=== PATIENT | male | born 1980 | race African-American/Black ===

== ENCOUNTER 2016-11-09 11:59 | Emergency (ER) | payer BC ==
[~2016-11-09] VITALS: Ht 182.9 cm; Wt 120.6 kg
[~2016-11-09 11:59] MED LIST: ALBU0.086 NEB; ALBU6.7H INH; MMW SWISH-SWAL; NEBUKIT4; PENVK500 PO; PRED20 PO
[2016-11-09 12:19] VITALS: BP 147/98; PULSE 69; RESP 16; TEMP 98.5; O2SAT 97
[2016-11-09] MEDS ORDERED: SODIUM CHLOR 0.9% 1000 ML INJ 1,000 ML IV ONE (12:45)
--- NOTE | 2016-11-09 13:04 | PD ---
HPI Chief Complaint: GI Complaint Time Seen by Provider: 12:28 Travel History International Travel<30 days: No Contact w/Intl Traveler<30days: No Traveled to known affect area: No History of Present Illness HPI This is a 36-year-old male who presents to the emergency department with diarrhea that's been going on for 1 month, constant, described as 2-6 loose stools per day, watery, nonbloody. He denies any associated nausea or vomiting. He has had intermittent chills. He denies any recent travel or recent antibiotic use. He denies any sick contacts. He denies any abdominal pain. He says he feels generally weak and lethargic. PFSH Past Medical History Cancer: No Cardiovascular Problems: Yes (htn) Diabetes: No Diminished Hearing: No Endocrine: No Gastrointestinal Disorders: No Genitourinary: No Hypertension: Yes Immune Disorder: No Implanted Vascular Access Dvce: No Psychiatric: No Respiratory: Yes (recent pneumonia NovemberDECEMBER 2015) Thyroid Disease: No Social History Alcohol Use: No (LIQUOR 1-2 X WEEK ) Tobacco Use: Yes Substance Use: No Allergies-Medications (Allergen,Severity, Reaction): Coded Allergies: No Known Allergies (Verified , 11/09/16) Reported Meds & Prescriptions Reported Meds & Active Scripts Active No Active Prescriptions or Reported Medications Review of Systems Except as stated in HPI: all other systems reviewed are Neg Physical Exam Narrative GENERAL:Well appearing, no acute distress SKIN: Warm and dry. HEAD: Atraumatic. Normocephalic. EYES: Pupils equal and round. No injection or drainage. ENT: Moist mucous membranes NECK: Trachea midline. CARDIOVASCULAR: Regular rate and rhythm. No murmur appreciated. RESPIRATORY: Clear to auscultation. Breath sounds equal bilaterally. GASTROINTESTINAL: Abdomen soft, non-tender, nondistended. MUSCULOSKELETAL: No obvious deformities. NEUROLOGICAL: Awake and alert. No obvious cranial nerve deficits. Moving all extremities. PSYCHIATRIC: Appropriate mood and affect; insight and judgment normal. Data Data Last Documented VS Vital Signs Date Time Temp Pulse Resp B/P Pulse Ox O2 Delivery O2 Flow Rate FiO2 11/09/16 12:19 98.5 69 16 147/98 97 Orders Complete Blood Count With Diff (11/09/16 12:36) Comprehensive Metabolic Panel (11/09/16 12:36) Magnesium (Mg) (11/09/16 12:36) ^ Insert Iv (11/09/16 12:36) Sodium Chlor 0.9% 1000 Ml Inj (Ns 1000 M (11/09/16 12:45) Labs Laboratory Tests Test 11/09/16 12:55 White Blood Count 5.0 TH/MM3 Red Blood Count 4.32 MIL/MM3 Hemoglobin 13.2 GM/DL Hematocrit 39.1 % Mean Corpuscular Volume 90.6 FL Mean Corpuscular Hemoglobin 30.5 PG Mean Corpuscular Hemoglobin 33.6 % Concent Red Cell Distribution Width 12.6 % Platelet Count 273 TH/MM3 Mean Platelet Volume 7.2 FL Neutrophils (%) (Auto) 55.1 % Lymphocytes (%) (Auto) 30.8 % Monocytes (%) (Auto) 8.8 % Eosinophils (%) (Auto) 2.2 % Basophils (%) (Auto) 3.1 % Neutrophils # (Auto) 2.8 TH/MM3 Lymphocytes # (Auto) 1.5 TH/MM3 Monocytes # (Auto) 0.4 TH/MM3 Eosinophils # (Auto) 0.1 TH/MM3 Basophils # (Auto) 0.2 TH/MM3 CBC Comment DIFF FINAL Differential Comment Sodium Level 141 MEQ/L Potassium Level 4.1 MEQ/L Chloride Level 105 MEQ/L Carbon Dioxide Level 28.2 MEQ/L Anion Gap 8 MEQ/L Blood Urea Nitrogen 11 MG/DL Creatinine 1.10 MG/DL Estimat Glomerular Filtration 92 ML/MIN Rate Random Glucose 117 MG/DL Calcium Level 8.7 MG/DL Magnesium Level 1.8 MG/DL Total Bilirubin 0.5 MG/DL Aspartate Amino Transf 45 U/L (AST/SGOT) Alanine Aminotransferase 58 U/L (ALT/SGPT) Alkaline Phosphatase 46 U/L Total Protein 7.8 GM/DL Albumin 3.7 GM/DL [facility] Medical Decision Making Medical Screen Exam Complete: Yes Emergency Medical Condition: Yes Interpretation(s) Vital signs are reassuring No leukocytosis Electrolytes are reassuring Differential Diagnosis Gastroenteritis, colitis, malabsorption, electrolyte abnormality Narrative Course This is a 36-year-old male who presents to the emergency department with watery diarrhea that's been going on for 1 month. He was placed on a monitor and an IV was established. Labs are obtained which were reassuring. He was given a liter of IV hydration. Patient will be discharged on Lomotil and Cipro given the duration of his symptoms. He will be referred to a packager and strapper for further evaluation. He is nontoxic appearing and well-hydrated and appropriate for further outpatient evaluation. Diagnosis Primary Impression: Diarrhea Qualified Code: R19.7 - Diarrhea, unspecified type Referrals: Sánchez Schmidt MD Patient Instructions: General Instructions Additional Instructions: If you develop severe or worsening abdominal pain, fever>100.4, persistent vomiting or inability to eat or drink return to the emergency department immediately. Follow-up with a packager and strapper if your symptoms don't improve. Med/Other Pt SpecificInfo: Prescription(s) given Scripts Diphenoxylate-Atropine (Lomotil)2.5-0.025 Mg Tab1 Tab PO Q6H PRN (DIARRHEA) #10 TAB Ref 0 Prov:Khalida Teresa MD 11/09/16 Ciprofloxacin 500 Mg Hom474 Mg PO BID 7 Days Prov:Khalida Teresa MD 11/09/16 Disposition: 01 DISCHARGE HOME Condition: Stable Khalida Teresa MD Nov 09, 2016 13:04
[2016-11-09 13:12] LABS: AUTOMATED NEUTROPHIL # 2.8 TH/MM3 (1.8-7.7); BASOPHIL # 0.2 TH/MM3 (0-0.2); BASOPHIL % 3.1 % (0.0-2.0); EOSINOPHIL # 0.1 TH/MM3 (0-0.4); EOSINOPHIL % 2.2 % (0.0-4.0); HEMATOCRIT 39.1 % (39.0-51.0); HEMO FLAGS DIFF FINAL; LYMPH % 30.8 % (9.0-44.0); LYMPHOCYTE # 1.5 TH/MM3 (1.0-4.8); MEAN CELL VOLUME 90.6 FL (80.0-100.0); MEAN CORPUSCULAR HEMOGLOBIN 30.5 PG (27.0-34.0); MEAN CORPUSCULAR HGB CONC 33.6 % (32.0-36.0); MONO % 8.8 % (0.0-8.0); NEUT % 55.1 % (16.0-70.0); PLATELET COUNT 273 TH/MM3 (150-450); RED BLOOD COUNT 4.32 MIL/MM3 (4.50-5.90); RED CELL DISTRIBUTION WIDTH 12.6 % (11.6-17.2)
[2016-11-09 13:15] LABS: CHLORIDE 105 MEQ/L (98-107); POTASSIUM 4.1 MEQ/L (3.5-5.1); SODIUM (NA) 141 MEQ/L (136-145)
[2016-11-09 13:19] LABS: ANION GAP 8 MEQ/L (5-15); BICARBONATE 28.2 MEQ/L (21.0-32.0); BLOOD UREA NITROGEN 11 MG/DL (7-18); MAGNESIUM 1.8 MG/DL (1.5-2.5)
[2016-11-09 13:22] LABS: ALT (GPT) 58 U/L (12-78); AST (GOT) 45 U/L (15-37); GLOMERULAR FILTRATION RATE 92 ML/MIN (>89)
[2016-11-09 13:23] LABS: TOTAL BILIRUBIN ADULT 0.5 MG/DL (0.2-1.0)
[2016-11-09 13:25] LABS: ALKALINE PHOSPHATASE 46 U/L (45-117)
[2016-11-09] MEDS ORDERED: LOMO2.5T PO (13:29)
[2016-11-09] MEDS ORDERED: CIPR500T2 PO (13:29)
== END 2016-11-09 14:38 | disposition home or self-care (01) ==
LOC: PHED 11:59
DX: R19.7 Diarrhea, unspecified (principal); I10 Essential (primary) hypertension; Z72.0 Tobacco use
CPT/HCPCS: 80053; 83735; 85025; 96360; 99284; J7030

== ENCOUNTER 2017-03-22 10:21 | Emergency (ER) | payer SELFPAY ==
[~2017-03-22] VITALS: Ht 182.9 cm; Wt 123.0 kg
[~2017-03-22 10:21] MED LIST changes: -ALBU0.086 NEB; -ALBU6.7H INH; +CIPR500T2 PO; +LOMO2.5T PO; -MMW SWISH-SWAL; -NEBUKIT4; -PENVK500 PO; -PRED20 PO
[2017-03-22 10:23] VITALS: BP 186/112; PULSE 75; RESP 15; TEMP 98.9; O2SAT 98
[2017-03-22] MEDS ORDERED: SODIUM CHLOR 0.9% 1000 ML INJ 1,000 ML IV SCH (10:55)
[2017-03-22] MEDS ORDERED: MORPHINE SULFATE 4 MG/ML INJ IV PUSH ONE (11:00)
[2017-03-22] MEDS ORDERED: ONDANSETRON HCL 4 MG/2 ML VIAL IVP ONE (11:00)
[2017-03-22] MEDS ORDERED: SODIUM CHLORIDE 0.9% FLUSH 10 ML FLUSH IV FLUSH PRN (11:00)
--- NOTE | 2017-03-22 11:03 | PD ---
HPI Chief Complaint: Abdominal Pain Time Seen by Provider: 10:42 Travel History International Travel<30 days: No Contact w/Intl Traveler<30days: No Traveled to known affect area: No History of Present Illness HPI 36-year-old male came to the emergency room complaining of abdominal pain. He says it's mostly generalized but gravitates more towards the left lower quadrant. He says he has had pain like this 2 years ago when he had come to the emergency room and at that time he was diagnosed with GERD. His vital signs are stable. He does not appear to be in significant distress. He says the pain started this morning. He has been little bit nauseous but did not vomit. No history of bowel movement issues either. REPLACED BY [facility] Past Medical History Narrative Medical List of his past medical, surgical, social and family history is reviewed from the nursing note. Medical History: Denies Significant Hx Cancer: No Cardiovascular Problems: Yes (htn) Diabetes: No Diminished Hearing: No Endocrine: No Gastrointestinal Disorders: No Genitourinary: No Hypertension: Yes Immune Disorder: No Implanted Vascular Access Dvce: No Psychiatric: No Respiratory: Yes (pneumonia NovemberDECEMBER 2015) Immunizations Current: No Thyroid Disease: No Tetanus Vaccination: Unknown Influenza Vaccination: No Past Surgical History Surgical History: No Previous Surgery Social History Alcohol Use: Yes (occ) Tobacco Use: No Substance Use: Yes (pot) Allergies-Medications (Allergen,Severity, Reaction): Coded Allergies: No Known Allergies (Verified , 03/22/17) Comments No known allergies. Reported Meds & Prescriptions Reported Meds & Active Scripts Active Protonix (Pantoprazole Sodium) 20 Mg Tab 20 Mg PO DAILY Narrative Medication List of his home medications reviewed from the nursing note. Review of Systems Except as stated in HPI: all other systems reviewed are Neg Physical Exam Narrative GENERAL: Awake, alert, obese, no obvious distress SKIN: Focused skin assessment warm/dry. HEAD: Atraumatic. Normocephalic. EYES: Pupils equal and round. No scleral icterus. No injection or drainage. ENT: No nasal bleeding or discharge. Mucous membranes pink and moist. NECK: Trachea midline. No JVD. CARDIOVASCULAR: Regular rate and rhythm. No murmur appreciated. RESPIRATORY: No accessory muscle use. Clear to auscultation. Breath sounds equal bilaterally. GASTROINTESTINAL: Abdomen soft, non-tender, nondistended. Hepatic and splenic margins not palpable. MUSCULOSKELETAL: No obvious deformities. No clubbing. No cyanosis. No edema. NEUROLOGICAL: Awake and alert. No obvious cranial nerve deficits. Motor grossly within normal limits. Normal speech. PSYCHIATRIC: Appropriate mood and affect; insight and judgment normal. Data Data Last Documented VS Vital Signs Date Time Temp Pulse Resp B/P Pulse Ox O2 Delivery O2 Flow Rate FiO2 03/22/17 12:30 65 18 158/110 97 Room Air 03/22/17 10:23 98.9 Orders Complete Blood Count With Diff (03/22/17 10:55) Comprehensive Metabolic Panel (03/22/17 10:55) Lipase (03/22/17 10:55) Urinalysis - C+S If Indicated (03/22/17 10:55) Ct Abd/Pel W/O Iv Contrast (03/22/17 10:55) Iv Access Insert/Monitor (03/22/17 10:55) Ecg Monitoring (03/22/17 10:55) Oximetry (03/22/17 10:55) Morphine Inj (Morphine Inj) (03/22/17 11:00) Ondansetron Inj (Zofran Inj) (03/22/17 11:00) Sodium Chlor 0.9% 1000 Ml Inj (Ns 1000 M (03/22/17 10:55) Sodium Chloride 0.9% Flush (Ns Flush) (03/22/17 11:00) Labs Laboratory Tests Test 03/22/17 03/22/17 11:20 11:25 White Blood Count 5.8 TH/MM3 Red Blood Count 4.86 MIL/MM3 Hemoglobin 14.2 GM/DL Hematocrit 43.3 % Mean Corpuscular Volume 89.1 FL Mean Corpuscular Hemoglobin 29.1 PG Mean Corpuscular Hemoglobin 32.7 % Concent Red Cell Distribution Width 12.4 % Platelet Count 236 TH/MM3 Mean Platelet Volume 8.0 FL Neutrophils (%) (Auto) 53.9 % Lymphocytes (%) (Auto) 34.4 % Monocytes (%) (Auto) 8.0 % Eosinophils (%) (Auto) 2.9 % Basophils (%) (Auto) 0.8 % Neutrophils # (Auto) 3.1 TH/MM3 Lymphocytes # (Auto) 2.0 TH/MM3 Monocytes # (Auto) 0.5 TH/MM3 Eosinophils # (Auto) 0.2 TH/MM3 Basophils # (Auto) 0.0 TH/MM3 CBC Comment DIFF FINAL Differential Comment Sodium Level 139 MEQ/L Potassium Level 4.3 MEQ/L Chloride Level 106 MEQ/L Carbon Dioxide Level 24.7 MEQ/L Anion Gap 8 MEQ/L Blood Urea Nitrogen 9 MG/DL Creatinine 0.84 MG/DL Estimat Glomerular Filtration 126 ML/MIN Rate Random Glucose 115 MG/DL Calcium Level 9.1 MG/DL Total Bilirubin 0.5 MG/DL Aspartate Amino Transf 42 U/L (AST/SGOT) Alanine Aminotransferase 62 U/L (ALT/SGPT) Alkaline Phosphatase 54 U/L Total Protein 8.4 GM/DL Albumin 3.9 GM/DL Lipase 103 U/L Urine Color STRAW Urine Turbidity CLEAR Urine pH 5.5 Urine Specific [place] 1.015 Urine Protein NEG mg/dL Urine Glucose (UA) NEG mg/dL Urine Ketones NEG mg/dL Urine Occult Blood TRACE Urine Nitrite NEG Urine Bilirubin NEG Urine Leukocyte Esterase NEG Urine RBC 0-3 /hpf Urine WBC 0-2 /hpf Urine Squamous Epithelial 0-5 /hpf Cells Microscopic Urinalysis Comment CULT NOT INDICATED MDM Medical Decision Making Medical Screen Exam Complete: Yes Emergency Medical Condition: Yes Medical Record Reviewed: Yes Differential Diagnosis Acute pancreatitis, acute gastritis, acute diverticulitis, abdominal pain NOS Narrative Course 11:58 AM the scan is back and shows an enlarged fatty liver but otherwise negative. Awaiting for the blood test result. Patient was given pain medication. Procedures EKG Prior to Arrival: No Diagnosis Primary Impression: Abdominal pain Qualified Code: R10.9 - Abdominal pain, unspecified location Additional Impression: Fatty liver Referrals: Primary Care Physician Additional Instructions: Do not drink alcohol. Eat mostly clear liquid diet for next 48 hours like apple juice, Jell-O, clear broth, rosa isela carol etc. Return to the ER if the condition worsens or any other new concerns. Follow-up with your primary care in couple days. Med/Other Pt SpecificInfo: Prescription(s) given, No Change to Meds Scripts Pantoprazole (Protonix)20 Mg Tab20 Mg PO DAILY #30 TAB Ref 0 Prov:Steffanie Chaidez MD 03/22/17 Disposition: 01 DISCHARGE HOME Condition: Stable Steffanie Chaidez MD Mar 22, 2017 11:02
--- NOTE | 2017-03-22 11:31 | RADRPT ---
EXAM DATE/TIME: 03/22/2017 11:04 [facility] COMPARISON: CT THORAX W CONTRAST, December 10, 2015, 0:34. CT PULMONARY ANGIOGRAM, December 15, 2015, 1:11. INDICATIONS : Diffuse abdominal pain x 3 hours. Nausea. ORAL CONTRAST: No oral contrast ingested. RADIATION DOSE: 21.90 CTDIvol (mGy) MEDICAL HISTORY : Hypertension. SURGICAL HISTORY : None. ENCOUNTER: Initial ACUITY: 1 day PAIN SCALE: 9/10 LOCATION: Diffuse abdomen. TECHNIQUE: Volumetric scanning of the abdomen and pelvis was performed. Using automated exposure control and ad justment of the mA and/or kV according to patient size, radiation dose was kept as low as reasonably achievable to obtain optimal diagnostic quality images. DICOM format image data is available electro nically for review and comparison. FINDINGS: LOWER LUNGS: The visualized lower lungs are clear. LIVER: The liver is enlarged and demonstrates fatty infiltration. No focal hepatic mass is identified on thi s unenhanced exam. There is no dilation of the biliary tree. No calcified gallstones. SPLEEN: Normal size without lesion. PANCREAS: Within normal limits. KIDNEYS: Normal in size and shape. There is no stone or hydronephrosis. There is an 18 mm low density lesion within the left kidney which likely represents a cyst. ADRENAL GLANDS: Within normal limits. VASCULAR: There is no aortic aneurysm. BOWEL/MESENTERY: Uncomplicated colonic diverticulosis is noted. No acute diverticulitis is noted the appendix is blayne l. ABDOMINAL WALL: Within normal limits. RETROPERITONEUM: There is no lymphadenopathy. BLADDER: No wall thickening or mass. REPRODUCTIVE: Within normal limits. INGUINAL: There is no lymphadenopathy or hernia. MUSCULOSKELETAL: Within normal limits for patient age. CONCLUSION: 1. Enlarged fatty liver. 2. Uncomplicated colonic diverticulosis. 3. 18 mm left renal cyst. Earl Condon MD on March 22, 2017 at 11:23 Board Certified Radiologist. This report was verified electronically.
[2017-03-22 11:37] LABS: BLOOD, URINE TRACE (NEG); GLUCOSE,URINE NEG (NEG); KETONE, URINE NEG (NEG); NITRITE,URINE NEG (NEG); PH, URINE 5.5 (5.0-8.5)
[2017-03-22 11:39] LABS: CHLORIDE 106 MEQ/L (98-107); POTASSIUM 4.3 MEQ/L (3.5-5.1); SODIUM (NA) 139 MEQ/L (136-145)
[2017-03-22 11:40] VITALS: BP 173/114; PULSE 77; RESP 18; O2SAT 100
[2017-03-22 11:45] LABS: ANION GAP 8 MEQ/L (5-15); BICARBONATE 24.7 MEQ/L (21.0-32.0); BLOOD UREA NITROGEN 9 MG/DL (7-18)
[2017-03-22 11:47] LABS: ALT (GPT) 62 U/L (12-78); AST (GOT) 42 U/L (15-37); GLOMERULAR FILTRATION RATE 126 ML/MIN (>89)
[2017-03-22 11:48] LABS: TOTAL BILIRUBIN ADULT 0.5 MG/DL (0.2-1.0)
[2017-03-22 11:49] LABS: ALKALINE PHOSPHATASE 54 U/L (45-117)
[2017-03-22 11:53] LABS: AUTOMATED NEUTROPHIL # 3.1 TH/MM3 (1.8-7.7); BASOPHIL % 0.8 % (0.0-2.0); EOSINOPHIL # 0.2 TH/MM3 (0-0.4); EOSINOPHIL % 2.9 % (0.0-4.0); HEMATOCRIT 43.3 % (39.0-51.0); HEMO FLAGS DIFF FINAL; LYMPH % 34.4 % (9.0-44.0); MEAN CELL VOLUME 89.1 FL (80.0-100.0); MEAN CORPUSCULAR HEMOGLOBIN 29.1 PG (27.0-34.0); MEAN CORPUSCULAR HGB CONC 32.7 % (32.0-36.0); NEUT % 53.9 % (16.0-70.0); PLATELET COUNT 236 TH/MM3 (150-450); RED BLOOD COUNT 4.86 MIL/MM3 (4.50-5.90); RED CELL DISTRIBUTION WIDTH 12.4 % (11.6-17.2); WHITE BLOOD COUNT 5.8 TH/MM3 (4.0-11.0)
[2017-03-22 11:56] LABS: URINE COLOR STRAW (YELLW/STRAW)
[2017-03-22 11:57] LABS: COMMENT (UR) CULT NOT INDICATED; CULTURE IF INDICATED CULT NOT INDICATED; RBC, URINE 0-3 /hpf (0-3); SQUAMOUS EPITHELIAL CELL URINE 0-5 /hpf (0-5); WBC, URINE 0-2 /hpf (0-5)
[2017-03-22] MEDS ORDERED: PANT20 PO (12:01)
[2017-03-22 12:05] VITALS: BP 174/110; PULSE 67; RESP 18; O2SAT 99
[2017-03-22 12:30] VITALS: BP 158/110; PULSE 65; RESP 18; O2SAT 97
== END 2017-03-22 13:20 | disposition home or self-care (01) ==
LOC: PHED 10:21
DX: R10.84 Generalized abdominal pain (principal); K76.0 Fatty (change of) liver, not elsewhere classified; K21.9 Gastro-esophageal reflux disease without esophagitis; I10 Essential (primary) hypertension
CPT/HCPCS: 74176; 80053; 81001; 83690; 85025; 96361; 96374; 96375; 99285; J2270; J2405; J7030

== ENCOUNTER 2017-04-18 09:13 | Observation (INO) | payer SELFPAY ==
[2017-04-18] VITALS (11 sets, daily range): BP systolic 131–200; BP diastolic 74–114; PULSE 59–74; RESP 16–22; TEMP 98.1–98.6; O2SAT 94–100
[~2017-04-18] VITALS: Ht 182.9 cm; Wt 125.0 kg
[~2017-04-18 09:13] MED LIST changes: -CIPR500T2 PO; -LOMO2.5T PO; +PANT20 PO
[2017-04-18] MEDS ORDERED: SODIUM CHLORIDE 0.9% FLUSH 10 ML FLUSH IVF PRN (09:45)
[2017-04-18] MEDS ORDERED: hydrALAZINE HCL 20 MG/ML VIAL IV PUSH ONE (09:45)
--- NOTE | 2017-04-18 09:57 | PD ---
HPI Chief Complaint: Abdominal Pain Time Seen by Provider: 09:31 Travel History International Travel<30 days: No Contact w/Intl Traveler<30days: No Traveled to known affect area: No History of Present Illness HPI 36yo M with PMH of HTN presents to the ED with multiple complaints. Pt is c/o periumbilical abdominal pain that radiates to chest today. States it feels like heart burn. Chest pain is midsternal, intermittent and started this morning. States the chest pain is associated with sob. +Nausea and vomiting. Feels chills. Denies any fever, diarrhea, dysuria, testicular pain, penile discharge. PFSH Past Medical History Medical History: Denies Significant Hx Cancer: No Cardiovascular Problems: Yes (htn) Diabetes: No Diminished Hearing: No Endocrine: No Gastrointestinal Disorders: No Genitourinary: No Hypertension: Yes Immune Disorder: No Implanted Vascular Access Dvce: No Psychiatric: No Respiratory: Yes (pneumonia NovemberDECEMBER 2015) Immunizations Current: No Thyroid Disease: No Tetanus Vaccination: Unknown Influenza Vaccination: No ?: Not Past Surgical History Surgical History: No Previous Surgery Social History Alcohol Use: Yes (occ) Tobacco Use: No Substance Use: Yes (marijuana) Allergies-Medications (Allergen,Severity, Reaction): Coded Allergies: No Known Allergies (Verified , 03/22/17) Reported Meds & Prescriptions Reported Meds & Active Scripts Active Review of Systems Except as stated in HPI: all other systems reviewed are Neg Physical Exam Narrative GENERAL: 36yo M in mild distress. SKIN: Focused skin assessment warm/dry. HEAD: Atraumatic. Normocephalic. EYES: Pupils equal and round. No scleral icterus. No injection or drainage. ENT: Throat: Clear. Uvula midline. NECK: Trachea midline. No JVD. No cervical lymphadenopathy that is ttp. CARDIOVASCULAR: Regular rate and rhythm. No murmur appreciated. RESPIRATORY: No accessory muscle use. Clear to auscultation. Breath sounds equal bilaterally. GASTROINTESTINAL: Abdomen soft, Mild periumbilical ttp. No rebound tenderness or guarding. MUSCULOSKELETAL: No obvious deformities. No clubbing. No cyanosis. No edema. NEUROLOGICAL: Awake and alert. No obvious cranial nerve deficits. Motor grossly within normal limits. Normal speech. PSYCHIATRIC: Appropriate mood and affect; insight and judgment normal. Data Data Last Documented VS Vital Signs Date Time Temp Pulse Resp B/P (MAP) Pulse Ox O2 Delivery O2 Flow Rate FiO2 04/18/17 14:20 17 04/18/17 12:02 100 Room Air 04/18/17 09:31 63 165/100 (121) 04/18/17 09:14 98.6 Orders Orders Electrocardiogram (04/18/17 09:40) Basic Metabolic Panel (Bmp) (04/18/17 09:40) Complete Blood Count With Diff (04/18/17 09:40) Magnesium (Mg) (04/18/17 09:40) Prothrombin Time / Inr (Pt) (04/18/17 09:40) Act Partial Throm Time (Ptt) (04/18/17 09:40) Troponin I (04/18/17 09:40) Chest, Single Ap (04/18/17 09:40) Ecg Monitoring (04/18/17 09:40) Bilateral Bp Monitoring (04/18/17 09:40) Iv Access Insert/Monitor (04/18/17 09:40) Oximetry (04/18/17 09:40) Oxygen Administration (04/18/17 09:40) Sodium Chloride 0.9% Flush (Ns Flush) (04/18/17 09:45) Lipase (04/18/17 09:40) Urinalysis - C+S If Indicated (04/18/17 09:40) Hydralazine Inj (Apresoline Inj) (04/18/17 09:45) Morphine Inj (Morphine Inj) (04/18/17 10:00) Aspirin (Aspirin) (04/18/17 10:00) Ondansetron Inj (Zofran Inj) (04/18/17 10:00) Ct Abd/Pel W Iv Contrast(Rout) (04/18/17 ) Morphine Inj (Morphine Inj) (04/18/17 12:15) Iohexol 350 Inj (Omnipaque 350 Inj) (04/18/17 13:39) Admit Order (Ed Use Only) (04/18/17 14:34) Labs Laboratory Tests Test 04/18/17 10:00 04/18/17 10:10 White Blood Count 5.7 TH/MM3 Red Blood Count 4.82 MIL/MM3 Hemoglobin 14.2 GM/DL Hematocrit 43.5 % Mean Corpuscular Volume 90.3 FL Mean Corpuscular Hemoglobin 29.4 PG Mean Corpuscular Hemoglobin Concent 32.6 % Red Cell Distribution Width 13.3 % Platelet Count 231 TH/MM3 Mean Platelet Volume 8.4 FL Neutrophils (%) (Auto) 46.8 % Lymphocytes (%) (Auto) 41.3 % Monocytes (%) (Auto) 8.8 % Eosinophils (%) (Auto) 2.2 % Basophils (%) (Auto) 0.9 % Neutrophils # (Auto) 2.7 TH/MM3 Lymphocytes # (Auto) 2.3 TH/MM3 Monocytes # (Auto) 0.5 TH/MM3 Eosinophils # (Auto) 0.1 TH/MM3 Basophils # (Auto) 0.1 TH/MM3 CBC Comment DIFF FINAL Differential Comment Prothrombin Time 10.5 SEC Prothromb Time International Ratio 1.0 RATIO Activated Partial Thromboplast Time 29.9 SEC Blood Urea Nitrogen 14 MG/DL Creatinine 0.97 MG/DL Random Glucose 106 MG/DL Calcium Level 9.7 MG/DL Magnesium Level 2.0 MG/DL Sodium Level 137 MEQ/L Potassium Level 3.6 MEQ/L Chloride Level 106 MEQ/L Carbon Dioxide Level 22.5 MEQ/L Anion Gap 9 MEQ/L Estimat Glomerular Filtration Rate 107 ML/MIN Troponin I 0.02 NG/ML Lipase 122 U/L Urine Color YELLOW Urine Turbidity CLEAR Urine pH 7.0 Urine Specific [place] 1.019 Urine Protein NEG mg/dL Urine Glucose (UA) NEG mg/dL Urine Ketones TRACE mg/dL Urine Occult Blood NEG Urine Nitrite NEG Urine Bilirubin NEG Urine Urobilinogen LESS THAN 2.0 MG/DL Urine Leukocyte Esterase NEG Urine RBC LESS THAN 1 /hpf Urine WBC LESS THAN 1 /hpf Urine Mucus FEW /lpf Urine Sperm RARE Microscopic Urinalysis Comment CULT NOT INDICATED MDM Medical Decision Making Medical Screen Exam Complete: Yes Emergency Medical Condition: Yes Interpretation(s) EKG: NSR 68bpm. LVH. TWI I, aVL, II, V4-V6. Differential Diagnosis Viral syndrome vs. gastritis vs. pneumonia vs. hypertensive urgency vs. ACS Narrative Course 36yo M with multiple complaints. Labs reviewed, no leukocytosis. Troponin negative at 0.02. Lipase normal. UA showed no leukocyte or nitrite. CXR negative. CTa/p showed 4cm liver mass left hepatic lobe. MRI of the abdomen with and without contrast may be helpful for further characterization on a nonemergent outpatient basis. Pt is only 36yo but is obese, has hypertension and not on any medication, has cousin who in his 30s, and former cig smoker. Pt does have some TWI inversions on EKG but also has LVH. Pt given aspirin, morphine and zofran. Reevaluated at bedside and abdominal pain, chest pain and sob has resolved. However, states the chest pain is intermittent. Low risk chest pain so will admit to chest pain center for serial EKG and cardiac enzyme Scripts Omeprazole (Omeprazole) 20 Mg Tab 20 MG PO DAILY for Reflux, #30 TAB 1 Refill Prov: Юлия Chaves 04/19/17 Amlodipine (Amlodipine) 10 Mg Tab 10 MG PO DAILY for Blood Pressure Management, #30 TAB 1 Refill Prov: Юлия Chaves 04/19/17 Cely Donnelly DO Apr 18, 2017 09:57
[2017-04-18] MEDS ORDERED: MORPHINE SULFATE 4 MG/ML INJ IV PUSH ONE ×2 (10:00→12:15)
[2017-04-18] MEDS ORDERED: ASPIRIN 325 MG TAB PO ONE (10:00)
[2017-04-18] MEDS ORDERED: ONDANSETRON HCL 4 MG/2 ML VIAL IV PUSH ONE (10:00)
--- NOTE | 2017-04-18 10:09 | RADRPT ---
EXAM DATE/TIME: 04/18/2017 09:44 [facility] COMPARISON: CHEST SINGLE AP, December 14, 2015, 21:58. INDICATIONS : Chest pain. Patient c/o abdomen pain, nausea and vomiting. MEDICAL HISTORY : None. SURGICAL HISTORY : None. ENCOUNTER: Initial ACUITY: 1 day PAIN SCORE: 10/10 LOCATION: Bilateral chest Abdomen. FINDINGS: A single view of the chest demonstrates the lungs to be symmetrically aerated without evidence of mas s, infiltrate or effusion. The cardiomediastinal contours are unremarkable. Osseous structures are intact. CONCLUSION: Normal examination. Dell Rogers Jr., MD on April 18, 2017 at 10:02 Board Certified Radiologist. This report was verified electronically.
[2017-04-18 10:21] LABS: AUTOMATED NEUTROPHIL # 2.7 TH/MM3 (1.8-7.7); BASOPHIL # 0.1 TH/MM3 (0-0.2); BASOPHIL % 0.9 % (0.0-2.0); EOSINOPHIL # 0.1 TH/MM3 (0-0.4); EOSINOPHIL % 2.2 % (0.0-4.0); HEMATOCRIT 43.5 % (39.0-51.0); HEMO FLAGS DIFF FINAL; LYMPH % 41.3 % (9.0-44.0); LYMPHOCYTE # 2.3 TH/MM3 (1.0-4.8); MEAN CELL VOLUME 90.3 FL (80.0-100.0); MEAN CORPUSCULAR HEMOGLOBIN 29.4 PG (27.0-34.0); MEAN CORPUSCULAR HGB CONC 32.6 % (32.0-36.0); MONO % 8.8 % (0.0-8.0); NEUT % 46.8 % (16.0-70.0); PLATELET COUNT 231 TH/MM3 (150-450); RED BLOOD COUNT 4.82 MIL/MM3 (4.50-5.90); RED CELL DISTRIBUTION WIDTH 13.3 % (11.6-17.2); WHITE BLOOD COUNT 5.7 TH/MM3 (4.0-11.0)
[2017-04-18 10:25] LABS: BLOOD, URINE NEG (NEG); COMMENT (UR) CULT NOT INDICATED; CULTURE IF INDICATED CULT NOT INDICATED; GLUCOSE,URINE NEG (NEG); KETONE, URINE TRACE mg/dL (NEG); MUCUS URINE FEW /lpf (OCC); NITRITE,URINE NEG (NEG); URINE COLOR YELLOW (YELLW/STRAW)
[2017-04-18 10:32] LABS: APTT (PATIENT) 29.9 SEC (24.3-30.1); PROTHROMBIN TIME - PATIENT 10.5 SEC (9.8-11.6)
[2017-04-18 10:33] LABS: BICARBONATE 22.5 MEQ/L (21.0-32.0); POTASSIUM 3.6 MEQ/L (3.5-5.1)
[2017-04-18] MEDS ORDERED: IOHEXOL 350 MG/ML 10 ML VIAL (for RAD DIAG) IVCONTRAST ONE (13:39)
--- NOTE | 2017-04-18 13:59 | RADRPT ---
EXAM DATE/TIME: 04/18/2017 13:18 [facility] COMPARISON: CT ABDOMEN & PELVIS W/O CONTRAST, March 22, 2017, 11:04. INDICATIONS : Diffuse abdominal pain. IV CONTRAST: 94 cc Omnipaque 350 (iohexol) IV ORAL CONTRAST: No oral contrast ingested. RADIATION DOSE: 9.69 CTDIvol (mGy) MEDICAL HISTORY : Hypertension. SURGICAL HISTORY : None. ENCOUNTER: Initial ACUITY: 1 day PAIN SCALE: 5/10 LOCATION: Bilateral abdomen TECHNIQUE: Volumetric scanning of the abdomen and pelvis was performed. Using automated exposure control and ad justment of the mA and/or kV according to patient size, radiation dose was kept as low as reasonably achievable to obtain optimal diagnostic quality images. DICOM format image data is available electro nically for review and comparison. FINDINGS: No pleural or pericardial effusions. Spleen, pancreas, adrenal glands, kidneys, gallbladder, stomach, urinary bladder unremarkable. A few scattered colonic diverticuli are noted. The appendix is normal. There is no evidence of bowel obstruction. In the left hepatic lobe lateral segment an enhancing mas s is present with central area of low density, somewhat stellate in appearance. This measures 4 x 3.4 cm in transverse and AP dimension.. The lung bases are clear. The bones are unremarkable. CONCLUSION: 4 cm liver mass left hepatic lobe. MRI of the abdomen with and without contrast may be helpful for fu rther characterization on a nonemergent outpatient basis. There no findings to explain the patient's diffuse abdominal pain. Esvin Butler MD on April 18, 2017 at 13:49 Board Certified Radiologist. This report was verified electronically.
[2017-04-18] MEDS ORDERED: ACETAMINOPHEN 500 MG CPLT PO PRN (15:30)
[2017-04-18] MEDS ORDERED: NITROGLYCERIN 0.4 MG SL 25 TABS/BTL SL PRN (15:30)
[2017-04-18] MEDS ORDERED: ONDANSETRON HCL 4 MG/2 ML VIAL IV PRN (15:30)
--- NOTE | 2017-04-18 16:13 | HHI.HP ---
HPI Primary Care Physician in [place], [place] Chief Complaint Abdomen pain History of Present Illness 36-year-old male with history of hypertension and GERD presents for emergency room for further evaluation of abdominal pain. Onset 8 AM. Location left upper quad. Described as sharp stabbing pain. Duration 5 seconds. Pain quickly side. After pain in the left upper quadrant dissipates then experiences epigastric burning, stating "feels like heartburn." Associated symptoms include cold sweats, chills, nausea, 1 clear emesis, and short of breath. Did not hurt to take a deep breath. No particular movement or position make pain better or worse. Endorses similar pain in the past 3 years ago. During that time states pain was more severe and was diagnosed with acid reflux. Review of Systems General: No fatigue,weakness, fever, chills, recent illness, or change in appetite. Has been in his general state of health. 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 HEENT: Endorses certain known acid reflux food triggers. No longer takes daily antacids. No TRAVIS, no vision changes, no nasal congestion or drainage, no dysphasia. CV: As stated above. No current CP or pressure. Remote feelings of "fluttering in chest" with last episode nearly 3 years ago. Denies any exertional chest discomfort. RESP: No SOB, cough, wheeze, hemoptysis, recent URI, of history of asthma GI: Nausea and vomiting as resolved. No current esophageal burning. No bowel changes, distention, melena, or blood in the stool. Reports 4-5 months ago treated with antibiotics for diarrhea. Diarrhea resolved with antibiotics. No change in appetite. Unintentional weight gain he relates to decrease in activity level. : No dysuria, urgency, or hematuria EXT: No lower leg edema, no paraesthesias MS: No discomfort or change in ROM NEURO: No dizziness, difficulty with balance, LOC, motor/sensory deficits PSYCH: Current situational stress as he recently was fired from construction job. No anxiety, depression, or suicidal ideation SKIN: No rashes, no concerning lesions Past Family Social History Allergies: Coded Allergies: No Known Allergies (Verified , 03/22/17) Past Medical History GERD, hypertension-currently not on any medications. States [place] took him off blood pressure medications and currently trying lifestyle modifications. Past Surgical History None Reported Medications Active Multivitamin gummy Active Ordered Medications Current Medications Medications (Trade) Dose Ordered Sig/Chidi Route Start Time Stop Time Status Last Admin (NS Flush) 2 ml UNSCH PRN IVF 04/18/17 09:45 (NS Flush) 2 ml BID IV FLUSH 04/18/17 21:00 UNV (Tylenol) 500 mg Q4H PRN PO 04/18/17 15:30 UNV (Zofran Inj) 4 mg Q6H PRN IV 04/18/17 15:30 UNV (Nitrostat Sl) 0.4 mg Q5M PRN SL 04/18/17 15:30 UNV (Aspirin) 325 mg DAILY PO 04/19/17 09:00 UNV Family History Noncontributory for early onset cardiovascular disease Social History No known diabetes or hyperlipidemia. Has been on medication in the past for hypertension. Currently not on any medications as PCP has recommended lifestyle modifications. Quit smoking 1 month ago. Prior to quitting smoking 1-1 1/2 half pack daily. Occasional alcohol use. Denies current illegal drug use. Endorses remote history of cocaine use. Endorses a current sedentary lifestyle since losing his job 4 months ago. Past cardiac testing 2010 treadmill stress test ([facility]) reported to be normal 2008 Holter monitor-no acute findings 2008 Echocardiogram- EF 55-60%, normal wall motion YANNA at age 14 or 15-reported to be normal, unsure reason YANNA was ordered Does not follow with a oncology rep specialist. Physical Exam Vital Signs Vital Signs Date Time Temp Pulse Resp B/P (MAP) Pulse Ox O2 Delivery O2 Flow Rate FiO2 04/18/17 16:00 67 20 131/74 (93) 94 Room Air 04/18/17 15:47 100 21 04/18/17 14:20 17 04/18/17 12:02 100 Room Air 04/18/17 11:30 16 04/18/17 09:31 63 22 165/100 (121) 100 Room Air 04/18/17 09:14 98.6 74 16 200/114 (142) 100 Room Air Physical Exam GENERAL: Alert WN, WD, NAD, pleasant, obese male who appears older than stated age. HEAD: NC, AT EYES: Sclera clear, conjunctiva without injection, pupils equal and round ENT: Mucous membranes pink and moist, no nasal discharge or bleeding CV: RRR, without murmur, rub, gallop, no JVD, S1-S2 no S3-S4. Chest pain not reproducible upon palpation. RESP: Clear lungs throughout bilateral, no crackles, wheeze, rhonchi, symmetrical chest rise, nonlabored, able to speak in full sentences ABD: Soft, NT, ND, no masses, positive bowel tones, negative Rodriguez's sign, no rebound tenderness, epigastric area pain not reproducible upon palpation EXT: Pulses +24, no dependent edema MS: Normal tone 4 extremities, nontender, no obvious deformities, full range of motion NEURO: CN II through CN XII grossly intact, motor strength 5/5 PSYCH: A+O 3, flat affect, appropriate speech, appropriate mood and affect, insight and judgment SKIN: Normal turgor, normal texture, no lesions, no rashes, brisk cap refill, even hair distribution Laboratory Laboratory Tests Test 04/18/17 10:00 04/18/17 10:10 04/18/17 15:30 White Blood Count 5.7 Red Blood Count 4.82 Hemoglobin 14.2 Hematocrit 43.5 Mean Corpuscular Volume 90.3 Mean Corpuscular Hemoglobin 29.4 Mean Corpuscular Hemoglobin Concent 32.6 Red Cell Distribution Width 13.3 Platelet Count 231 Mean Platelet Volume 8.4 Neutrophils (%) (Auto) 46.8 Lymphocytes (%) (Auto) 41.3 Monocytes (%) (Auto) 8.8 Eosinophils (%) (Auto) 2.2 Basophils (%) (Auto) 0.9 Neutrophils # (Auto) 2.7 Lymphocytes # (Auto) 2.3 Monocytes # (Auto) 0.5 Eosinophils # (Auto) 0.1 Basophils # (Auto) 0.1 CBC Comment DIFF FINAL Differential Comment Prothrombin Time 10.5 Prothromb Time International Ratio 1.0 Activated Partial Thromboplast Time 29.9 Blood Urea Nitrogen 14 Creatinine 0.97 Random Glucose 106 Calcium Level 9.7 Magnesium Level 2.0 Sodium Level 137 Potassium Level 3.6 Chloride Level 106 Carbon Dioxide Level 22.5 Anion Gap 9 Estimat Glomerular Filtration Rate 107 Troponin I 0.02 Lipase 122 Urine Color YELLOW Urine Turbidity CLEAR Urine pH 7.0 Urine Specific [place] 1.019 Urine Protein NEG Urine Glucose (UA) NEG Urine Ketones TRACE Urine Occult Blood NEG Urine Nitrite NEG Urine Bilirubin NEG Urine Urobilinogen LESS THAN 2.0 Urine Leukocyte Esterase NEG Urine RBC LESS THAN 1 Urine WBC LESS THAN 1 Urine Mucus FEW Urine Sperm RARE Microscopic Urinalysis Comment CULT NOT INDICATED Result Diagram: 04/18/17 1000 04/18/17 1000 Imaging Chest X-ray interpreted by radiologist Conclusion Normal examination. CT abdomen/pelvis interpreted by radiologist Conclusion 4 cm liver mass left hepatic lobe. MRI of the abdomen with and without contrast my be helpful for further characterization on a nonemergent outpatient bases. There no findings to explain the patient's diffuse abdominal pain. Course EKG Normal sinus rhythm, criteria for LVH, T-wave inversions anteriorly, laterally ( compared with past ekg's and T wave inversion unchanged) Caprini VTE Risk Assessment Caprini VTE Risk Assessment: No/Low Risk (score <= 1) Caprini Risk Assessment Model Point Value = 1 Point Value = 2 Point Value = 3 Point Value = 5 Age 41-60 Minor surgery BMI > 25 kg/m2 Swollen legs Varicose veins or History of unexplained or recurrent spontaneous Oral contraceptives or hormone replacement Sepsis (< 1 month) Serious lung disease, including pneumonia (< 1 month) Abnormal pulmonary function Acute myocardial infarction Congestive heart failure (< 1 month) History of inflammatory bowel disease Medical patient at bed rest Age 61-74 Arthroscopic surgery Major open surgery (> 45 min) Laparoscopic surgery (> 45 min) Malignancy Confined to bed (> 72 hours) Immobilizing plaster cast Central venous access Age >= 75 History of VTE Family history of VTE Factor V Leiden Prothrombin [id number] Lupus anticoagulant Anticardiolipin antibodies Elevated serum homocysteine Heparin-induced thrombocytopenia Other congenital or acquired thrombophilia Stroke (< 1 month) Elective arthroplasty Hip, pelvis, or leg fracture Acute spinal cord injury (< 1 month) Prophylaxis Regimen Total Risk Factor Score Risk Level Prophylaxis Regimen 0-1 Low Early ambulation 2 Moderate Order ONE of the following: *Sequential Compression Device (SCD) *Heparin 5000 units SQ BID 3-4 Higher Order ONE of the following medications: *Heparin 5000 units SQ TID *Enoxaparin/Lovenox 40 mg SQ daily (WT < 150 kg, CrCl > 30 mL/min) *Enoxaparin/Lovenox 30 mg SQ daily (WT < 150 kg, CrCl > 10-29 mL/min) *Enoxaparin/Lovenox 30 mg SQ BID (WT < 150 kg, CrCl > 30 mL/min) AND/OR *Sequential Compression Device (SCD) 5 or more Highest Order ONE of the following medications: *Heparin 5000 units SQ TID (Preferred with Epidurals) *Enoxaparin/Lovenox 40 mg SQ daily (WT < 150 kg, CrCl > 30 mL/min) *Enoxaparin/Lovenox 30 mg SQ daily (WT < 150 kg, CrCl > 10-29 mL/min) *Enoxaparin/Lovenox 30 mg SQ BID (WT < 150 kg, CrCl > 30 mL/min) AND *Sequential Compression Device (SCD) Assessment and Plan Assessment and Plan #1 Atypical chest pain-admitted to chest pain center. Ruled out with 3 sets of EKGs, cardiac enzymes, and monitor overnight. Seen and evaluated by Dr. Alysia Gallego. Discussed nuclear treadmill in a.m. Patient agreeable plan of care. #2 Hypertension Apresoline provided an ED, will continue to monitor. Education provided on importance of tight blood pressure control. Encouraged him to continue lifestyle modifications including low-sodium diet, continuing tobacco cessation, increasing his daily activity, and working on weight loss. Amlodipine 5 mg daily. #3 GERD-GI cocktail, Protonix 40 mg PO daily. Discussed avoiding known food triggers, not eating 2 hours before bed, and not overeating. Encouraged liberally use of antacids as needed. #4 Tobacco cessation-stressed importance of not restarting tobacco use. #5 Hepatic mass-discussed findings with patient, as did ER physician. CT scans ( current and past) will be provided at discharged. Instructed him to follow up with PCP. Юлия Chaves Apr 18, 2017 16:13
[2017-04-18] MEDS ORDERED: LIDOCAINE VISCOUS 2% SOLN 15 ML UDC SWISH-SWAL ONE (16:30)
[2017-04-18] MEDS ORDERED: ALUMINUM/MAGNESIUM/SIMETH 30 ML CUP PO ONE (16:30)
[2017-04-18] MEDS ORDERED: cloNIDine HCL 0.2 MG TAB PO PRN (16:45)
[2017-04-18] MEDS: amLODIPine BESYLATE 5 MG TAB PO SCH (18:11)
[2017-04-18] MEDS: PANTOPRAZOLE SOD 40 MG DELAYED RELEASE TAB PO SCH (18:11)
[2017-04-18 18:46] LABS: CKMB 4.3 NG/ML (0.5-3.6)
[2017-04-18] MEDS: SODIUM CHLORIDE 0.9% FLUSH 10 ML FLUSH IV FLUSH SCH (20:46)
[2017-04-19 03:48] VITALS: PULSE 54
[2017-04-19 04:48] VITALS: BP 138/96; PULSE 55; RESP 20; TEMP 98.1; O2SAT 98
[2017-04-19 05:52] VITALS: O2SAT 98
[2017-04-19 07:00] VITALS: PULSE 58
[2017-04-19] MEDS ORDERED: ASPIRIN 325 MG TAB PO SCH (09:00)
[2017-04-19] MEDS: PANTOPRAZOLE SOD 40 MG DELAYED RELEASE TAB PO SCH (11:18)
[2017-04-19] MEDS: amLODIPine BESYLATE 5 MG TAB PO SCH (11:18)
[2017-04-19] MEDS: SODIUM CHLORIDE 0.9% FLUSH 10 ML FLUSH IV FLUSH SCH (11:19)
--- NOTE | 2017-04-19 11:32 | RADRPT ---
EXAM DATE/TIME: 04/19/2017 08:58 CORRECTION Corrected on: April 20, 2017; added ejection fraction 39% [place] COMPARISON: No previous studies available for comparison. INDICATIONS : Chest pain for 1 day. Angina DOSE: 35 mCi Tc99m Myoview at stress 11 mCi Tc99m Myoview at rest REST HEART RATE: 78 BPM TARGET HEART RATE: 157 BPM MAX HEART RATE: 152 BPM REST BLOOD PRESSURE: 160/102 mmHg MAX BLOOD PRESSURE: 212/118 mmHg EJECTION FRACTION: 39 % MEDICAL HISTORY : Hypertension. Smoker. SURGICAL HISTORY : None. ENCOUNTER: Initial ACUITY: 1 day PAIN SCALE: 3/10 LOCATION: Bilateral chest TECHNIQUE: The patient underwent upright treadmill exercise in the chest pain center. Continuous ECG tracing wa s monitored during stress. Gated SPECT imaging was performed after stress, and conventional SPECT im aging was performed at rest. The examination was performed on a SPECT/CT scanner, both attenuation-c orrected and non-corrected datasets were reviewed. FINDINGS: DISTRIBUTION: The maximum perfused segment at stress is in the septal wall. PERFUSION STUDY: There is 10% redistribution involving the anterolateral wall. No significant redistribution greater t brannon 10%. GATED STUDY: There is global hypokinesia. No dyskinesia or akinesia. CONCLUSION: No significant reversible defect observed to suggest acute ischemia. Global hypokines ia. RISK CATEGORY: Low Dell Rogers Jr., MD on April 19, 2017 at 11:26 Board Certified Radiologist. This report was verified electronically.
[2017-04-19 11:39] VITALS: BP 168/116; PULSE 72; RESP 20; TEMP 98.7; O2SAT 99
[2017-04-19] MEDS ORDERED: AMLO10TA2 PO (12:12)
[2017-04-19] MEDS ORDERED: OMEP20TA PO (12:13)
--- NOTE | 2017-04-19 12:14 | HHI.DCPOC ---
Discharge Care Plan Diagnosis: (1) Atypical chest pain (2) Hypertension (3) Situational stress (4) Liver mass Goals to Promote Your Health * To prevent worsening of your condition and complications * To maintain your health at the optimal level Directions to Meet Your Goals Take your medications as prescribed Follow your dietary instruction Follow activity as directed Keep your appointments as scheduled Take your immunizations and boosters as scheduled If your symptoms worsen call your PCP, if no PCP go to Urgent Care Center or Emergency Room Smoking is Dangerous to Your Health. Avoid second hand smoke Call the 24-hour hour crisis hotline for domestic abuse at Юлия Chaves Apr 19, 2017 12:14
--- NOTE | 2017-04-19 12:16 | HHI.DS ---
Discharge Summary Admission Date Apr 18, 2017 at 14:36 Discharge Date: Apr 19, 2017 Admitting Diagnosis Chest pain (1) Atypical chest pain Diagnosis: Principal ICD Codes: R07.89 - Other chest pain Status: Acute (2) Hypertension Diagnosis: Principal ICD Codes: I10 - Essential (primary) hypertension Status: Chronic (3) Liver mass Diagnosis: Secondary ICD Codes: R16.0 - Hepatomegaly, not elsewhere classified (4) Situational stress Diagnosis: Secondary ICD Codes: F43.9 - Reaction to severe stress, unspecified Brief History 36-year-old male history of hypertension, recently quit smoking, and her present emergency room for further evaluation of chest pain. Ruled out with multiple EKGs and cardiac enzymes. Completed nuclear stress test unremarkable for ischemia and noted to have EF 39%. CBC/BMP: 04/18/17 1000 04/18/17 1000 Significant Findings Laboratory Tests Test 04/18/17 10:00 04/18/17 10:10 04/18/17 15:30 04/18/17 17:55 Monocytes (%) (Auto) 8.8 % (0.0-8.0) Urine Ketones TRACE mg/dL (NEG) Urine Mucus FEW /lpf (OCC) Urine Sperm RARE (NONE) Troponin I LESS THAN 0.02 NG/ML Total Creatine Kinase 753 U/L (39-308) Creatine Kinase MB 4.3 NG/ML (0.5-3.6) Imaging Last Impressions Myocardial Perfusion Scan Nuc Med 04/19/17 0000 Signed Impressions: Service Date/Time: Wednesday, April 19, 2017 08:58 - CONCLUSION: No significant reversible defect observed to suggest acute ischemia. Global hypokinesia. RISK CATEGORY: Low Dell Rogers Jr., MD Chest X-Ray 04/18/17 0940 Signed Impressions: Service Date/Time: Tuesday, April 18, 2017 09:44 - CONCLUSION: Normal examination. Dell Rogers Jr., MD Abdomen/Pelvis CT 04/18/17 0000 Signed Impressions: Service Date/Time: Tuesday, April 18, 2017 13:18 - CONCLUSION: 4 cm liver mass left hepatic lobe. MRI of the abdomen with and without contrast may be helpful for further characterization on a nonemergent outpatient basis. There no findings to explain the patient's diffuse abdominal pain. Esvin Butler MD Pt Condition on Discharge: Good Discharge Disposition: Discharge Home Discharge Instructions DIET: Follow Instructions for: Heart Healthy Diet, Low Sodium Diet Activities you can perform: Regular-No Restrictions Additional Information Discussed in length importance of tight blood pressure control. Instructed to follow-up with PCP due to findings of reduced reduced EF. Most likely will require echocardiogram. CT scans provided at discharge. Instructed to take PCP appointment regarding hepatic mass, follow up with PCP. Юлия Chaves Apr 19, 2017 12:16
--- NOTE | 2017-04-19 17:46 | TR ---
Date Performed: 04/19/2017 Time Performed: 09:55:52 DOCTOR: Alysia Gallego DRUG LIST: CLINICAL HISTORY: CHEST PAIN REASON FOR TEST: Chest pain REASON FOR ENDING: OBSERVATION: CONCLUSION: Abdi protocol completed. Stopped sec to leg fatigue. % Max HR Achieved=82.0% Maximu m SU=053/110 Total Exercise Time=9:01 Maximum XY=113. No reprod chest pain/discomfort. Occassional PA Cs. T wave inversions prior to exam inferiorly, anteriorly and lateraly. (Unchanged from prior EKG in past). Hypertensive bp response. Recovery quick and unremarkable. Good exercise tolerance. COMMENTS:
--- NOTE | 2017-04-19 17:50 | EKG ---
Date Performed: 04/18/2017 Time Performed: 18:01:25 PTAGE: 36 years EKG: SINUS BRADYCARDIA LEFT ANTERIOR FASCICULAR BLOCK LEFT VENTRICULAR HYPERTROPHY AND ST-T HODGES GE PROBABLE LATERAL MYOCARDIAL INFARCTION ABNORMAL ECG Since PREVIOUS TRACING , no significant change noted DOCTOR: Alysia Gallego Interpretating Date/Time 04/19/2017 17:48:43
--- NOTE | 2017-04-19 17:51 | EKG ---
Date Performed: 04/18/2017 Time Performed: 09:55:35 PTAGE: 36 years EKG: Sinus rhythm WITH OCCASIONAL SUPRAVENTRICULAR PREMATURE COMPLEXES MARKED LEFT AXIS DEVIATION LEFT VENTRICULAR HYP ERTROPHY AND ST-T CHANGE PROBABLE LATERAL MYOCARDIAL INFARCTION ABNORMAL ECG Since PREVIOUS TRACING , no significant change noted PREVIOUS TRACIN12/10/2015 06.45 DOCTOR: Alysia Gallego Interpretating Date/Time 04/19/2017 17:49:29
--- NOTE | 2017-04-19 17:51 | EKG ---
Date Performed: 04/18/2017 Time Performed: 15:18:58 PTAGE: 36 years EKG: SINUS BRADYCARDIA MARKED LEFT AXIS DEVIATION LEFT VENTRICULAR HYPERTROPHY AND ST-T CHANGE P ROBABLE LATERAL MYOCARDIAL INFARCTION ABNORMAL ECG Since PREVIOUS TRACING , no significant change noted PREVIOUS TRACIN04/18/2017 09.55 DOCTOR: Alysia Gallego Interpretating Date/Time 04/19/2017 17:49:07
== END 2017-04-19 15:34 | disposition home or self-care (01) ==
LOC: NEPC 09:13 → NEDA 14:36 → NEPHCDU 16:24
PROVIDERS: ADMIT Internal Medicine Interventional Cardiology; ATTEND Internal Medicine Interventional Cardiology
DX: R07.89 Other chest pain (principal); I10 Essential (primary) hypertension; F43.9 Reaction to severe stress, unspecified; R16.0 Hepatomegaly, not elsewhere classified; R94.31 Abnormal electrocardiogram [ECG] [EKG]; K21.9 Gastro-esophageal reflux disease without esophagitis; Z87.891 Personal history of nicotine dependence
CPT/HCPCS: 71010; 74177; 78452; 80048; 81001; 82550; 82552; 83690; 83735; 84484; 85025; 85610; 85730; 93005; 93017; 96374; 96375; 96376; 99285; A9502; G0378; J2270; J2405; Q9967

== ENCOUNTER 2017-05-22 11:22 | Emergency (ER) | payer OTHER ==
[~2017-05-22] VITALS: Ht 182.9 cm; Wt 115.0 kg
[~2017-05-22 11:22] MED LIST changes: +AMLO10TA2 PO; +OMEP20TA PO; -PANT20 PO
[2017-05-22 11:33] VITALS: BP 186/108; PULSE 73; RESP 18; O2SAT 100
[2017-05-22] MEDS ORDERED: SODIUM CHLOR 0.9% 1000 ML INJ 1,000 ML IV ONE (11:45)
[2017-05-22] MEDS ORDERED: PANTOPRAZOLE SODIUM 40 MG VIAL IV PUSH ONE (11:45)
[2017-05-22] MEDS ORDERED: ONDANSETRON HCL 4 MG/2 ML VIAL IV PUSH ONE (11:45)
[2017-05-22] MEDS ORDERED: LORazepam 2 MG/ML VIAL IV PUSH ONE (11:45)
[2017-05-22 11:57] LABS: AUTOMATED NEUTROPHIL # 2.5 TH/MM3 (1.8-7.7); BASOPHIL # 0.2 TH/MM3 (0-0.2); BASOPHIL % 3.9 % (0.0-2.0); EOSINOPHIL # 0.1 TH/MM3 (0-0.4); EOSINOPHIL % 1.5 % (0.0-4.0); HEMATOCRIT 43.2 % (39.0-51.0); HEMO FLAGS DIFF FINAL; LYMPH % 46.3 % (9.0-44.0); LYMPHOCYTE # 2.9 TH/MM3 (1.0-4.8); MEAN CELL VOLUME 89.6 FL (80.0-100.0); MEAN CORPUSCULAR HGB CONC 32.4 % (32.0-36.0); MONO % 8.1 % (0.0-8.0); NEUT % 40.2 % (16.0-70.0); PLATELET COUNT 252 TH/MM3 (150-450); RED BLOOD COUNT 4.82 MIL/MM3 (4.50-5.90); RED CELL DISTRIBUTION WIDTH 12.5 % (11.6-17.2); WHITE BLOOD COUNT 6.2 TH/MM3 (4.0-11.0)
--- NOTE | 2017-05-22 12:09 | PD ---
HPI Chief Complaint: Abdominal Pain Time Seen by Provider: 11:27 Travel History International Travel<30 days: No Contact w/Intl Traveler<30days: No Traveled to known affect area: No History of Present Illness HPI This 36-year-old male is complaining of epigastric pain. He says the pain started this morning. He had smoked some marijuana. . The pain started. He has a history of hypertension. He was recently admitted to the chest pain center and had a negative evaluation at that time. The pain is having is epigastric in location. He has vomited PFSH Past Medical History Heart Rhythm Problems: No Cancer: No Cardiac Catheterization: No Cardiovascular Problems: Yes (htn) High Cholesterol: No Congestive Heart Failure: No Diabetes: No Diminished Hearing: No Endocrine: No Gastrointestinal Disorders: No GERD: Yes Genitourinary: No Hypertension: Yes Immune Disorder: No Implanted Vascular Access Dvce: No Psychiatric: No Respiratory: Yes (pneumonia NovemberDECEMBER 2015) Immunizations Current: No Thyroid Disease: No Tetanus Vaccination: Unknown Influenza Vaccination: No Past Surgical History Surgical History: No Previous Surgery Coronary Artery Bypass Graft: No Social History Alcohol Use: Yes (socially) Tobacco Use: No (former) Substance Use: Yes (marijuana; hx cocaine) Allergies-Medications (Allergen,Severity, Reaction): Coded Allergies: No Known Allergies (Verified , 05/22/17) Reported Meds & Prescriptions Reported Meds & Active Scripts Active Omeprazole 20 Mg Tab 20 Mg PO DAILY Amlodipine (Amlodipine Besylate) 10 Mg Tab 10 Mg PO DAILY Review of Systems General / Constitutional: No: Fever, Chills Eyes: No: Diploplia, Blurred Vision HENT: No: Headaches, Vertigo Cardiovascular: No: Chest Pain or Discomfort, Palpitations Respiratory: No: Cough Gastrointestinal: Positive: Vomiting, Abdominal Pain Genitourinary: No: Urgency, Frequency Musculoskeletal: No: Myalgias, Arthralgias Skin: No Rash Neurologic: No: Weakness Physical Exam Narrative GENERAL: Well-developed male SKIN: Focused skin assessment warm/dry. HEAD: Atraumatic. Normocephalic. EYES: Pupils equal and round. No scleral icterus. No injection or drainage. ENT: No nasal bleeding or discharge. Mucous membranes pink and moist. NECK: Trachea midline. No JVD. CARDIOVASCULAR: Regular rate and rhythm. No murmur appreciated. RESPIRATORY: No accessory muscle use. Clear to auscultation. Breath sounds equal bilaterally. GASTROINTESTINAL: Abdomen soft, there is epigastric tenderness, nondistended. Hepatic and splenic margins not palpable. MUSCULOSKELETAL: No obvious deformities. No clubbing. No cyanosis. No edema. NEUROLOGICAL: Awake and alert. No obvious cranial nerve deficits. Motor grossly within normal limits. Normal speech. PSYCHIATRIC: Appropriate mood and affect; insight and judgment normal. Data Data Last Documented VS Vital Signs Date Time Temp Pulse Resp B/P (MAP) Pulse Ox O2 Delivery O2 Flow Rate FiO2 05/22/17 12:49 99.0 75 18 156/94 (114) 100 Room Air Orders Orders Electrocardiogram (05/22/17 11:32) Complete Blood Count With Diff (05/22/17 11:32) Comprehensive Metabolic Panel (05/22/17 11:32) Troponin I (05/22/17 11:32) Lipase (05/22/17 11:32) Urinalysis - C+S If Indicated (05/22/17 11:32) Sodium Chlor 0.9% 1000 Ml Inj (Ns 1000 M (05/22/17 11:45) Lorazepam Inj (Ativan Inj) (05/22/17 11:45) Pantoprazole Inj (Protonix Inj) (05/22/17 11:45) Ondansetron Inj (Zofran Inj) (05/22/17 11:45) Prochlorperazine Inj (Compazine Inj) (05/22/17 12:45) Drug Screen, Random Urine (05/22/17 12:51) Labs Laboratory Tests Test 05/22/17 11:40 05/22/17 12:42 White Blood Count 6.2 TH/MM3 Red Blood Count 4.82 MIL/MM3 Hemoglobin 14.0 GM/DL Hematocrit 43.2 % Mean Corpuscular Volume 89.6 FL Mean Corpuscular Hemoglobin 29.0 PG Mean Corpuscular Hemoglobin Concent 32.4 % Red Cell Distribution Width 12.5 % Platelet Count 252 TH/MM3 Mean Platelet Volume 8.1 FL Neutrophils (%) (Auto) 40.2 % Lymphocytes (%) (Auto) 46.3 % Monocytes (%) (Auto) 8.1 % Eosinophils (%) (Auto) 1.5 % Basophils (%) (Auto) 3.9 % Neutrophils # (Auto) 2.5 TH/MM3 Lymphocytes # (Auto) 2.9 TH/MM3 Monocytes # (Auto) 0.5 TH/MM3 Eosinophils # (Auto) 0.1 TH/MM3 Basophils # (Auto) 0.2 TH/MM3 CBC Comment DIFF FINAL Differential Comment Blood Urea Nitrogen 10 MG/DL Creatinine 0.99 MG/DL Random Glucose 93 MG/DL Total Protein 8.9 GM/DL Albumin 4.3 GM/DL Calcium Level 9.5 MG/DL Alkaline Phosphatase 57 U/L Aspartate Amino Transf (AST/SGOT) 23 U/L Alanine Aminotransferase (ALT/SGPT) 27 U/L Total Bilirubin 0.5 MG/DL Sodium Level 139 MEQ/L Potassium Level 3.6 MEQ/L Chloride Level 106 MEQ/L Carbon Dioxide Level 24.4 MEQ/L Anion Gap 9 MEQ/L Estimat Glomerular Filtration Rate 104 ML/MIN Troponin I LESS THAN 0.02 NG/ML Lipase 121 U/L Urine Collection Type VOIDED Urine Color YELLOW Urine Turbidity CLEAR Urine pH 8.0 Urine Specific [place] 1.012 Urine Protein NEG mg/dL Urine Glucose (UA) NEG mg/dL Urine Ketones 15 mg/dL Urine Occult Blood NEG Urine Nitrite NEG Urine Bilirubin NEG Urine Leukocyte Esterase NEG Urine WBC 0-2 /hpf Microscopic Urinalysis Comment CULT NOT INDICATED Urine Barbiturates Screen NEG Urine Amphetamines Screen NEG Urine Benzodiazepines Screen NEG Urine Cocaine Screen NEG Urine Cannabinoids Screen POS MDM Medical Decision Making Medical Screen Exam Complete: Yes Emergency Medical Condition: Yes Medical Record Reviewed: Yes Differential Diagnosis Differential includes gastritis, pancreatitis, ulcer disease Narrative Course EKG shows some lateral inversions was present on previous EKGs. His troponin is normal. Lipase is normal. Impression is gastritis. Patient is complaining of pain. We'll recommend he continue his omeprazole. Diagnosis Primary Impression: Gastritis Scripts Ondansetron Odt (Zofran Odt) 4 Mg Tab 4 MG SL Q6HR Y for Nausea/Vomiting for 14 Days, #30 TAB 0 Refills Prov: Emmanuel Martin MD 05/22/17 Disposition: 01 DISCHARGE HOME Condition: Stable Emmanuel Martin MD May 22, 2017 12:09
[2017-05-22 12:11] LABS: CHLORIDE 106 MEQ/L (98-107); POTASSIUM 3.6 MEQ/L (3.5-5.1); SODIUM (NA) 139 MEQ/L (136-145)
[2017-05-22 12:15] LABS: ANION GAP 9 MEQ/L (5-15); BICARBONATE 24.4 MEQ/L (21.0-32.0); BLOOD UREA NITROGEN 10 MG/DL (7-18)
[2017-05-22 12:18] LABS: ALT (GPT) 27 U/L (12-78); AST (GOT) 23 U/L (15-37); GLOMERULAR FILTRATION RATE 104 ML/MIN (>89)
[2017-05-22 12:19] LABS: TOTAL BILIRUBIN ADULT 0.5 MG/DL (0.2-1.0)
[2017-05-22 12:20] LABS: ALKALINE PHOSPHATASE 57 U/L (45-117)
[2017-05-22 12:38] LABS: BLOOD, URINE NEG (NEG); GLUCOSE,URINE NEG (NEG); KETONE, URINE 15 mg/dL (NEG); NITRITE,URINE NEG (NEG)
[2017-05-22] MEDS ORDERED: PROCHLORPERAZINE INJ 10 MG/2 ML VIAL IV PUSH ONE (12:45)
[2017-05-22 12:49] VITALS: BP 156/94; PULSE 75; RESP 18; TEMP 99; O2SAT 100
[2017-05-22 12:50] LABS: COMMENT (UR) CULT NOT INDICATED; CULTURE IF INDICATED CULT NOT INDICATED; METHOD OF COLLECTION VOIDED; URINE COLOR YELLOW (YELLW/STRAW); WBC, URINE 0-2 /hpf (0-5)
[2017-05-22] MEDS ORDERED: ZOFR4TAB3 SL (13:34)
--- NOTE | 2017-05-23 11:58 | EKG ---
Date Performed: 05/22/2017 Time Performed: 11:25:50 PTAGE: 36 years EKG: Sinus rhythm MARKED LEFT AXIS DEVIATION LEFT VENTRICULAR HYPERTROPHY AND ST-T CHANGE PROBABLE LATERAL MYOCARDIAL INFARCTION ABNORMAL ECG NO PREVIOUS TRACING DOCTOR: Ace Brown Interpretating Date/Time 05/23/2017 11:55:04
== END 2017-05-22 13:50 | disposition home or self-care (01) ==
LOC: PHED 11:22
DX: K29.70 Gastritis, unspecified, without bleeding (principal); I51.7 Cardiomegaly; I10 Essential (primary) hypertension; K21.9 Gastro-esophageal reflux disease without esophagitis; Z87.891 Personal history of nicotine dependence
CPT/HCPCS: 80053; 80307; 81001; 83690; 84484; 85025; 93005; 96361; 96374; 96375; 99284; C9113; J0780; J2060; J2405; J7030

== ENCOUNTER 2017-05-22 16:21 | Observation (INO) | payer OTHER ==
[~2017-05-22] VITALS: Ht 182.9 cm; Wt 115.0 kg
[~2017-05-22 16:21] MED LIST changes: +ZOFR4TAB3 SL
[2017-05-22 16:22] VITALS: BP 173/100; PULSE 60; RESP 18; TEMP 99; O2SAT 97
--- NOTE | 2017-05-22 17:22 | PD ---
Physical Exam Date Seen by Provider: May 22, 2017 Time Seen by Provider: 17:18 Narrative 36 yo male here for evaluation of epigastric pain. has had this for a few days. Seen at [facility] today. Released and not better. Comes here to get rechecked. Pain is 10/10. Has N/V. No allergies. Vitals stable in triage. Awaiting bed placement. Data Data Last Documented VS Vital Signs Date Time Temp Pulse Resp B/P (MAP) Pulse Ox O2 Delivery O2 Flow Rate FiO2 05/22/17 16:22 99.0 60 18 173/100 (124) 97 Orders Orders Electrocardiogram (05/22/17 17:06) Complete Blood Count With Diff (05/22/17 17:06) Basic Metabolic Panel (Bmp) (05/22/17 17:06) Ckmb (Isoenzyme) Profile (05/22/17 17:06) Troponin I (05/22/17 17:06) Chest, Single Ap (05/22/17 17:06) MDM Medical Record Reviewed: Yes Supervised Visit with DRISS: Faisal Atkinson May 22, 2017 17:22
--- NOTE | 2017-05-22 17:28 | RADRPT ---
EXAM DATE/TIME: 05/22/2017 17:19 [facility] COMPARISON: No previous studies available for comparison. INDICATIONS : Chest pain MEDICAL HISTORY : None. SURGICAL HISTORY : None. ENCOUNTER: Initial ACUITY: 1 day PAIN SCORE: 10/10 LOCATION: chest FINDINGS: PA and lateral views of the chest demonstrate the lungs to be symmetrically aerated without evidence of mass, infiltrate or effusion. The cardiomediastinal contours are unremarkable. Osseous structure s are intact. CONCLUSION: Normal examination. Esvin Butler MD on May 22, 2017 at 17:27 Board Certified Radiologist. This report was verified electronically.
[2017-05-22] MEDS ORDERED: SODIUM CHLOR 0.9% 1000 ML INJ 1,000 ML IV ONE (18:00)
[2017-05-22] MEDS ORDERED: MORPHINE SULFATE 8 MG/ML INJ IV PUSH ONE (18:00)
[2017-05-22] MEDS ORDERED: METOCLOPRAMIDE HCL 10 MG/2 ML VIAL IV PUSH ONE (18:00)
[2017-05-22 18:06] LABS: ANION GAP 9 MEQ/L (5-15); BICARBONATE 24.4 MEQ/L (21.0-32.0); BLOOD UREA NITROGEN 9 MG/DL (7-18); CHLORIDE 105 MEQ/L (98-107); GLOMERULAR FILTRATION RATE 94 ML/MIN (>89); POTASSIUM 3.6 MEQ/L (3.5-5.1); SODIUM (NA) 138 MEQ/L (136-145)
[2017-05-22 18:09] LABS: CREATINE KINASE 669 U/L (39-308)
[2017-05-22 18:21] LABS: CKMB 4.4 NG/ML (0.5-3.6)
[2017-05-22 18:27] LABS: AUTOMATED NEUTROPHIL # 8.3 TH/MM3 (1.8-7.7); BASOPHIL # 0.1 TH/MM3 (0-0.2); BASOPHIL % 0.6 % (0.0-2.0); HEMATOCRIT 42.6 % (39.0-51.0); LYMPH % 10.4 % (9.0-44.0); MEAN CORPUSCULAR HGB CONC 32.9 % (32.0-36.0); MONO % 5.4 % (0.0-8.0); NEUT % 83.6 % (16.0-70.0); PLATELET COUNT 248 TH/MM3 (150-450); RED BLOOD COUNT 4.68 MIL/MM3 (4.50-5.90); RED CELL DISTRIBUTION WIDTH 13.2 % (11.6-17.2)
[2017-05-22 18:29] LABS: HEMO FLAGS AUTO DIFF
[2017-05-22 18:30] VITALS: BP 170/100; PULSE 80; RESP 17; TEMP 97.8; O2SAT 99
[2017-05-22] MEDS ORDERED: IOHEXOL 350 MG/ML 10 ML VIAL (for RAD DIAG) IVCONTRAST ONE (18:40)
--- NOTE | 2017-05-22 19:16 | RADRPT ---
EXAM DATE/TIME: 05/22/2017 18:31 [facility] COMPARISON: CT THORAX W CONTRAST, December 10, 2015, 0:34. CT ABDOMEN & PELVIS W/O CONTRAST, March 22, 2017, 11:04. CT ABDOMEN & PELVIS W CONTRAST, April 18, 2017, 13:18. INDICATIONS : Diffuse abdomen pain today. IV CONTRAST: 80 cc Omnipaque 350 (iohexol) IV ORAL CONTRAST: No oral contrast ingested. RADIATION DOSE: 10.69 CTDIvol (mGy) MEDICAL HISTORY : Hypertension. SURGICAL HISTORY : None. ENCOUNTER: Initial ACUITY: 1 day PAIN SCALE: 7/10 LOCATION: Bilateral abdomen TECHNIQUE: Volumetric scanning of the abdomen and pelvis was performed. Using automated exposure control and ad justment of the mA and/or kV according to patient size, radiation dose was kept as low as reasonably achievable to obtain optimal diagnostic quality images. DICOM format image data is available electro nically for review and comparison. FINDINGS: LOWER LUNGS: The visualized lower lungs are clear. LIVER: Homogeneous enhancement with slightly exophytic enhancing mass in the left lateral segment measuring 3.9 x 3.4 cm. This lesion is stable in size compared to the 12/10/2015 exam. There is no dilation of the biliary tree. No calcified gallstones. SPLEEN: Normal size without lesion. PANCREAS: Within normal limits. KIDNEYS: Normal in size and shape. There is no mass, stone or hydronephrosis. There is a 14 mm simple left re nal cyst. ADRENAL GLANDS: Within normal limits. VASCULAR: There is no aortic aneurysm. There is minimal atherosclerotic disease of the left common iliac artery . BOWEL/MESENTERY: The stomach, small bowel, and colon demonstrate no acute abnormality. There is no free intraperitone al air or fluid. Appendix is normal. ABDOMINAL WALL: Within normal limits. RETROPERITONEUM: There is no lymphadenopathy. BLADDER: No wall thickening or mass. REPRODUCTIVE: Within normal limits. INGUINAL: There is no lymphadenopathy or hernia. MUSCULOSKELETAL: No acute abnormality is identified. CONCLUSION: 1. No acute finding is identified to explain the clinical symptoms. 2. Stable 3.9 cm enhancing left lobe liver mass. It has remained stable for approximately 1 year and 5 months, favoring a benign process. Given the appearance, it may represent a hemangioma. Suggest con tinued attention to this on followup imaging or consider liver ultrasound on an outpatient basis for further characterization. Iron Sanz MD on May 22, 2017 at 19:10 Board Certified Radiologist. This report was verified electronically.
--- NOTE | 2017-05-22 19:32 | PD ---
HPI Chief Complaint: Chest Pain Time Seen by Provider: 17:50 Travel History International Travel<30 days: No Contact w/Intl Traveler<30days: No Traveled to known affect area: No History of Present Illness HPI This is a 36-year-old male who presents to the emergency department with epigastric discomfort, nausea and multiple episodes of vomiting throughout the day. He acknowledges smoking marijuana this morning. He [place] where he had blood work obtained but he says he didn't have any pain medicine given to him and he says this pain has been worsening throughout the day. His pain is constant, severe, worse at the top of his abdomen, with no associated diarrhea, fevers or chills. PFSH Past Medical History Heart Rhythm Problems: No Cancer: No Cardiac Catheterization: No Cardiovascular Problems: Yes (htn) High Cholesterol: No Congestive Heart Failure: No Diabetes: No Diminished Hearing: No Endocrine: No Gastrointestinal Disorders: No GERD: Yes Genitourinary: No Hypertension: Yes Immune Disorder: No Implanted Vascular Access Dvce: No Psychiatric: No Respiratory: Yes (PNEUMONIA) Immunizations Current: No Thyroid Disease: No Tetanus Vaccination: > 5 Years Influenza Vaccination: No Past Surgical History Coronary Artery Bypass Graft: No Social History Alcohol Use: Yes (socially) Tobacco Use: No (former) Substance Use: Yes (marijuana; hx cocaine) Allergies-Medications (Allergen,Severity, Reaction): Coded Allergies: No Known Allergies (Verified , 05/22/17) Reported Meds & Prescriptions Reported Meds & Active Scripts Active Zofran Odt (Ondansetron Odt) 4 Mg Tab 4 Mg SL Q6HR PRN 14 Days Omeprazole 20 Mg Tab 20 Mg PO DAILY Amlodipine (Amlodipine Besylate) 10 Mg Tab 10 Mg PO DAILY Review of Systems Except as stated in HPI: all other systems reviewed are Neg Physical Exam Narrative GENERAL:Well appearing, no acute distress. Smells like marijuana. SKIN: Focused skin assessment warm and dry. HEAD: Atraumatic. Normocephalic. EYES: Pupils equal and round. No injection or drainage. ENT: Moist mucous membranes NECK: Trachea midline. CARDIOVASCULAR: Regular rate and rhythm. No murmur appreciated. RESPIRATORY: Clear to auscultation. Breath sounds equal bilaterally. GASTROINTESTINAL: Abdomen soft, diffusely tender to palpation with some guarding in the epigastrium MUSCULOSKELETAL: No obvious deformities. NEUROLOGICAL: Awake and alert. No obvious cranial nerve deficits. Moving all extremities. PSYCHIATRIC: Appropriate mood and affect; insight and judgment normal. Data Data Last Documented VS Vital Signs Date Time Temp Pulse Resp B/P (MAP) Pulse Ox O2 Delivery O2 Flow Rate FiO2 05/22/17 18:30 97.8 80 17 170/100 (123) 99 05/22/17 17:51 Room Air Orders Orders Electrocardiogram (05/22/17 17:06) Complete Blood Count With Diff (05/22/17 17:06) Basic Metabolic Panel (Bmp) (05/22/17 17:06) Ckmb (Isoenzyme) Profile (05/22/17 17:06) Troponin I (05/22/17 17:06) Chest, Pa & Lat (05/22/17 17:06) Ct Abd/Pel W Iv Contrast(Rout) (05/22/17 ) Morphine Inj (Morphine Inj) (05/22/17 18:00) Metoclopramide Inj (Reglan Inj) (05/22/17 18:00) Sodium Chlor 0.9% 1000 Ml Inj (Ns 1000 M (05/22/17 18:00) CKMB (05/22/17 17:37) CKMB% (05/22/17 17:37) Iohexol 350 Inj (Omnipaque 350 Inj) (05/22/17 18:40) Admit Order (Ed Use Only) (05/22/17 20:24) Labs Laboratory Tests Test 05/22/17 17:37 White Blood Count 10.0 TH/MM3 Red Blood Count 4.68 MIL/MM3 Hemoglobin 14.0 GM/DL Hematocrit 42.6 % Mean Corpuscular Volume 91.0 FL Mean Corpuscular Hemoglobin 30.0 PG Mean Corpuscular Hemoglobin Concent 32.9 % Red Cell Distribution Width 13.2 % Platelet Count 248 TH/MM3 Mean Platelet Volume 8.4 FL Neutrophils (%) (Auto) 83.6 % Lymphocytes (%) (Auto) 10.4 % Monocytes (%) (Auto) 5.4 % Eosinophils (%) (Auto) 0.0 % Basophils (%) (Auto) 0.6 % Neutrophils # (Auto) 8.3 TH/MM3 Lymphocytes # (Auto) 1.0 TH/MM3 Monocytes # (Auto) 0.5 TH/MM3 Eosinophils # (Auto) 0.0 TH/MM3 Basophils # (Auto) 0.1 TH/MM3 CBC Comment AUTO DIFF Differential Comment AUTO DIFF CONFIRMED Platelet Estimate NORMAL Platelet Morphology Comment NORMAL Blood Urea Nitrogen 9 MG/DL Creatinine 1.08 MG/DL Random Glucose 133 MG/DL Calcium Level 9.3 MG/DL Sodium Level 138 MEQ/L Potassium Level 3.6 MEQ/L Chloride Level 105 MEQ/L Carbon Dioxide Level 24.4 MEQ/L Anion Gap 9 MEQ/L Estimat Glomerular Filtration Rate 94 ML/MIN Total Creatine Kinase 669 U/L Creatine Kinase MB 4.4 NG/ML Creatine Kinase MB % 0.7 % Troponin I LESS THAN 0.02 NG/ML MDM Medical Decision Making Medical Screen Exam Complete: Yes Emergency Medical Condition: Yes Medical Record Reviewed: Yes (patient was seen at [facility] this morning with similar symptoms. Labs are obtained at that time which were reassuring including a normal troponin. Patient was also admitted in March for chest pain and had a nuclear stress test performed which was low risk for ischemia but did have a reduced ejection fraction) Interpretation(s) EKG: ST depressions in the inferior and lateral leads which are similar but more prominent than prior EKGs No leukocytosis Electrolytes are reassuring CK slightly elevated Lipase was normal this morning Troponin was negative at 11:30 AM and is now negative at 5:30 PM over a period of 6 hours Differential Diagnosis Gastritis, acute coronary syndrome, pancreatitis, cannabis hyperemesis syndrome , cyclic vomiting syndrome Narrative Course This is a 36-year-old male who presents to the emergency department with abdominal discomfort and vomiting. He was seen at [facility] earlier today and was discharged. He re-presents to the emergency department with abdominal pain and vomiting. He says nothing was done for his pain earlier today. He appears uncomfortable and is diffusely tender in his abdomen. Labs are obtained which were reassuring with the exception of a mildly elevated CK. CT abdomen and pelvis was obtained which was unremarkable. The patient smells like marijuana. I suspect that this reflects cannabis hyperemesis syndrome. I am concerned as his EKG demonstrates inferior and lateral ST and T-wave changes which are much more prominent than they've been in the past. Even compared to his EKG this morning lead V3 is biphasic and appears more ischemic. Patient had a stress test in March which was reassuring but at that time it was noted that he had a decreased ejection fraction. His EKG changes are likely related to cardiomyopathy. I think it's reasonable to repeat serial troponins and to consider getting an echo. He'll be placed in observation for symptomatic control. Physician Communication Physician Communication Discussed with Dr. Dejesus Diagnosis Primary Impression: Vomiting Qualified Codes: G43.A1 - Cyclical vomiting, intractable Additional Impression: Abnormal EKG Admitting Information Admitting Physician Requests: Observation Khalida Teresa MD May 22, 2017 19:32
[2017-05-22 20:37] LABS: SCAN/DIFF AUTO DIFF CONFIRMED
[2017-05-22 20:38] LABS: PLATELET ESTIMATE SMEAR NORMAL (NORMAL); PLATELET MORPHOLOGY NORMAL (NORMAL)
[2017-05-22] MEDS ORDERED: SODIUM CHLOR 0.9% 1000 ML INJ 1,000 ML IV SCH (20:48)
[2017-05-22] MEDS ORDERED: SENNOSIDES 8.6 MG TAB PO PRN (21:00)
[2017-05-22] MEDS ORDERED: NALOXONE HCL 0.4 MG/ML AMP IV PUSH PRN (21:00)
[2017-05-22] MEDS ORDERED: SODIUM CHLORIDE 0.9% FLUSH 10 ML FLUSH IV FLUSH PRN (21:00)
[2017-05-22] MEDS ORDERED: LACTULOSE SYRUP 20 GM/30 ML CUP PO PRN (21:00)
[2017-05-22] MEDS: SODIUM CHLORIDE 0.9% FLUSH 10 ML FLUSH IV FLUSH SCH (21:00)
[2017-05-22] MEDS ORDERED: ACETAMINOPHEN 325 MG TAB PO PRN (21:00)
[2017-05-22] MEDS ORDERED: METOCLOPRAMIDE HCL 10 MG/2 ML VIAL IV PUSH PRN (21:00)
[2017-05-22] MEDS ORDERED: MAGNESIUM HYDROXIDE SUSP 30 ML CUP PO PRN (21:00)
[2017-05-22] MEDS ORDERED: cloNIDine HCL 0.1 MG TAB PO PRN (21:00)
[2017-05-22] MEDS ORDERED: BISACODYL 10 MG SUPP RECTAL PRN (21:00)
--- NOTE | 2017-05-22 21:21 | HHI.HP ---
[facility] Unknown Admission Diagnosis vomiting Diagnoses: Chief Complaint: Intractable nausea and vomiting Travel History International Travel<30 Days: No Contact w/Intl Traveler <30 Da: No Traveled to Known Affected Are: No History of Present Illness 36-year-old male with a medical history significant for hypertension and GERD presents to the hospital with complaint of epigastric discomfort, nausea and vomiting that has been ongoing all day. He initially presented to [facility] and was discharged home. He reports his severe and constant pain. There has been no diarrhea, fevers, or chills. He continues to smoke marijuana heavily. His workup so far has been unremarkable except for some lateral ST changes on EKG that are more prominent compared to prior. Hospitalist service contacted for admission and ACS rule out. Review of Systems Constitutional: DENIES: Fever Cardiovascular: DENIES: Chest pain Gastrointestinal: COMPLAINS OF: Abdominal pain Genitourinary: DENIES: Dysuria Neurologic: DENIES: Headache Except as stated in HPI: all other systems reviewed are Neg Past Family Social History Past Medical History Hypertension GERD Past Surgical History None Reported Medications Reported Meds & Active Scripts Active Zofran Odt (Ondansetron Odt) 4 Mg Tab 4 Mg SL Q6HR PRN 14 Days Omeprazole 20 Mg Tab 20 Mg PO DAILY Amlodipine (Amlodipine Besylate) 10 Mg Tab 10 Mg PO DAILY Allergies: Coded Allergies: No Known Allergies (Verified , 05/22/17) Family History Reviewed and is noncontributory. Social History Patient admits to using marijuana. Occasional alcohol. Physical Exam Vital Signs Vital Signs Date Time Temp Pulse Resp B/P (MAP) Pulse Ox O2 Delivery O2 Flow Rate FiO2 05/22/17 18:30 97.8 80 17 170/100 (123) 99 05/22/17 18:08 18 05/22/17 17:51 62 18 99 Room Air 05/22/17 16:22 99.0 60 18 173/100 (124) 97 Physical Exam GENERAL: This is a well-nourished, well-developed patient, in no apparent distress. SKIN: No rashes, ecchymoses or lesions. Cool and dry. HEAD: Atraumatic. Normocephalic. No temporal or scalp tenderness. EYES: Pupils equal round and reactive. Extraocular motions intact. No scleral icterus. No injection or drainage. ENT: Nose without bleeding, purulent drainage or septal hematoma. Throat without erythema, tonsillar hypertrophy or exudate. Uvula midline. Airway patent. NECK: Trachea midline. No JVD or lymphadenopathy. Supple, nontender, no meningeal signs. CARDIOVASCULAR: Regular rate and rhythm without murmurs, gallops, or rubs. RESPIRATORY: Clear to auscultation. Breath sounds equal bilaterally. No wheezes , rales, or rhonchi. GASTROINTESTINAL: Abdomen soft, mild tenderness to palpation diffusely, worse in the midepigastric region. No hepato-splenomegaly, or palpable masses. No guarding. MUSCULOSKELETAL: Extremities without clubbing, cyanosis, or edema. No joint tenderness, effusion, or edema noted. No calf tenderness. Negative Homans sign bilaterally. NEUROLOGICAL: Awake and alert. Cranial nerves II through XII intact. Motor and sensory grossly within normal limits. Five out of 5 muscle strength in all muscle groups. Normal speech. Laboratory Laboratory Tests Test 05/22/17 17:37 White Blood Count 10.0 Red Blood Count 4.68 Hemoglobin 14.0 Hematocrit 42.6 Mean Corpuscular Volume 91.0 Mean Corpuscular Hemoglobin 30.0 Mean Corpuscular Hemoglobin Concent 32.9 Red Cell Distribution Width 13.2 Platelet Count 248 Mean Platelet Volume 8.4 Neutrophils (%) (Auto) 83.6 Lymphocytes (%) (Auto) 10.4 Monocytes (%) (Auto) 5.4 Eosinophils (%) (Auto) 0.0 Basophils (%) (Auto) 0.6 Neutrophils # (Auto) 8.3 Lymphocytes # (Auto) 1.0 Monocytes # (Auto) 0.5 Eosinophils # (Auto) 0.0 Basophils # (Auto) 0.1 CBC Comment AUTO DIFF Differential Comment AUTO DIFF CONFIRMED Platelet Estimate NORMAL Platelet Morphology Comment NORMAL Blood Urea Nitrogen 9 Creatinine 1.08 Random Glucose 133 Calcium Level 9.3 Sodium Level 138 Potassium Level 3.6 Chloride Level 105 Carbon Dioxide Level 24.4 Anion Gap 9 Estimat Glomerular Filtration Rate 94 Total Creatine Kinase 669 Creatine Kinase MB 4.4 Creatine Kinase MB % 0.7 Troponin I LESS THAN 0.02 Result Diagram: 05/22/17 1737 05/22/17 1737 Imaging Last Impressions Chest X-Ray 05/22/17 1706 Signed Impressions: Service Date/Time: Monday, May 22, 2017 17:19 - CONCLUSION: Normal examination. Esvin Butler MD Abdomen/Pelvis CT 05/22/17 0000 Signed Impressions: Service Date/Time: Monday, May 22, 2017 18:31 - CONCLUSION: 1. No acute finding is identified to explain the clinical symptoms. 2. Stable 3.9 cm enhancing left lobe liver mass. It has remained stable for approximately 1 year and 5 months, favoring a benign process. Given the appearance, it may represent a hemangioma. Suggest continued attention to this on followup imaging or consider liver ultrasound on an outpatient basis for further characterization. MD Carol Lee VTE Risk Assessment Carol VTE Risk Assessment: No/Low Risk (score <= 1) Caprini Risk Assessment Model Point Value = 1 Point Value = 2 Point Value = 3 Point Value = 5 Age 41-60 Minor surgery BMI > 25 kg/m2 Swollen legs Varicose veins or History of unexplained or recurrent spontaneous Oral contraceptives or hormone replacement Sepsis (< 1 month) Serious lung disease, including pneumonia (< 1 month) Abnormal pulmonary function Acute myocardial infarction Congestive heart failure (< 1 month) History of inflammatory bowel disease Medical patient at bed rest Age 61-74 Arthroscopic surgery Major open surgery (> 45 min) Laparoscopic surgery (> 45 min) Malignancy Confined to bed (> 72 hours) Immobilizing plaster cast Central venous access Age >= 75 History of VTE Family history of VTE Factor V Leiden Prothrombin [id number] Lupus anticoagulant Anticardiolipin antibodies Elevated serum homocysteine Heparin-induced thrombocytopenia Other congenital or acquired thrombophilia Stroke (< 1 month) Elective arthroplasty Hip, pelvis, or leg fracture Acute spinal cord injury (< 1 month) Prophylaxis Regimen Total Risk Factor Score Risk Level Prophylaxis Regimen 0-1 Low Early ambulation 2 Moderate Order ONE of the following: *Sequential Compression Device (SCD) *Heparin 5000 units SQ BID 3-4 Higher Order ONE of the following medications: *Heparin 5000 units SQ TID *Enoxaparin/Lovenox 40 mg SQ daily (WT < 150 kg, CrCl > 30 mL/min) *Enoxaparin/Lovenox 30 mg SQ daily (WT < 150 kg, CrCl > 10-29 mL/min) *Enoxaparin/Lovenox 30 mg SQ BID (WT < 150 kg, CrCl > 30 mL/min) AND/OR *Sequential Compression Device (SCD) 5 or more Highest Order ONE of the following medications: *Heparin 5000 units SQ TID (Preferred with Epidurals) *Enoxaparin/Lovenox 40 mg SQ daily (WT < 150 kg, CrCl > 30 mL/min) *Enoxaparin/Lovenox 30 mg SQ daily (WT < 150 kg, CrCl > 10-29 mL/min) *Enoxaparin/Lovenox 30 mg SQ BID (WT < 150 kg, CrCl > 30 mL/min) AND *Sequential Compression Device (SCD) Assessment and Plan Problem List: (1) Intractable nausea and vomiting ICD Code: R11.2 - Nausea with vomiting, unspecified Plan: This is likely related to marijuana. I counseled the patient to stop using marijuana as this may be the cause of his intractable nausea and vomiting. - Hydrated with IV fluid. - Antiemetics ordered. - Follow for improvement. (2) Abnormal EKG ICD Code: R94.31 - Abnormal electrocardiogram [ECG] [EKG] Status: Acute Plan: Discussed with ED physician, EKG shows ST changes more prominent in the lateral lead compared to his EKG earlier [facility] [place]. This may be evidence of worsening cardiomyopathy or hypertensive heart disease. He denies true chest pain. It is noted his blood pressure has been uncontrolled on presentation here. Unclear if he is compliant with antihypertensives. - Serial cardiac enzymes as above. Repeat EKG. - Check 2-D echocardiogram (3) Hypertension ICD Code: I10 - Essential (primary) hypertension Status: Acute Plan: Uncontrolled. I question his compliance with antihypertensives. Patient will need outpatient follow-up to monitor his blood pressure and titrate antihypertensives. (4) Marijuana abuse ICD Code: F12.10 - Cannabis abuse, uncomplicated Plan: Patient counseled to quit given his a she with intractable nausea and vomiting. Discussed Condition With Donato Flor MD May 22, 2017 21:20
[2017-05-22 22:20] VITALS: BP 145/74; PULSE 74; RESP 14; TEMP 99.5
[2017-05-22 22:56] VITALS: PULSE 70
[2017-05-22 23:24] LABS: CREATINE KINASE 563 U/L (39-308)
[2017-05-22 23:37] LABS: CKMB 3.1 NG/ML (0.5-3.6)
[2017-05-23] VITALS (11 sets, daily range): BP systolic 139–167; BP diastolic 79–106; PULSE 57–84; RESP 16–18; TEMP 98–98.9; O2SAT 96–100
[2017-05-23 08:12] LABS: BICARBONATE 25.5 MEQ/L (21.0-32.0); POTASSIUM 3.1 MEQ/L (3.5-5.1)
[2017-05-23] MEDS: SODIUM CHLORIDE 0.9% FLUSH 10 ML FLUSH IV FLUSH SCH ×2 (09:00→20:05)
[2017-05-23] MEDS: PANTOPRAZOLE SOD 20 MG DELAYED RELEASE TAB PO SCH (09:14)
--- NOTE | 2017-05-23 12:00 | EKG ---
Date Performed: 05/22/2017 Time Performed: 17:33:17 PTAGE: 36 years EKG: Sinus rhythm POSSIBLE LEFT ATRIAL ENLARGEMENT MARKED LEFT AXIS DEVIATION LEFT VENTRICULAR HYPERTROPHY AND ST-T CH MARIELY POSSIBLE LATERAL MYOCARDIAL INFARCTION ABNORMAL ECG PREVIOUS TRACING : 05/22/2017 11.25 The T-wave changes are more prominent from the prior tracin g. Clinical correlation needed. DOCTOR: Ace Brown Interpretating Date/Time 05/23/2017 11:57:21
--- NOTE | 2017-05-23 12:07 | HHI.PR ---
Subjective Remarks Follow up for epigastric pain, nausea/vomiting. The patient reports feeling slightly better today. Denies any abdominal pain or nausea/vomiting overnight, however he does not have much of an appetite. He would like to try food that is easier on the stomach such as jello and broths. Again discussed marijuana likely contributing to his symptoms, had long discussion, recommended marijuana vacation and monitor symptoms. Patient denies any NSAID use. Patient also denies any other medical complaints including no chest pain, palpitations, shortness of breath, weight gain, or lower extremity edema. Objective Vitals Vital Signs Date Time Temp Pulse Resp B/P (MAP) Pulse Ox O2 Delivery O2 Flow Rate FiO2 05/23/17 08:24 98.2 79 16 156/80 (105) 98 05/23/17 04:10 98.4 76 18 139/79 (99) 100 05/23/17 00:29 98.4 78 18 150/99 (116) 100 05/22/17 22:56 70 05/22/17 22:20 99.5 74 14 145/74 (97) 05/22/17 21:38 05/22/17 18:30 97.8 80 17 170/100 (123) 99 05/22/17 18:08 18 05/22/17 17:51 62 18 99 Room Air 05/22/17 16:22 99.0 60 18 173/100 (124) 97 I/O 05/22/17 05/22/17 05/22/17 05/23/17 05/23/17 05/23/17 07:00 15:00 23:00 07:00 15:00 23:00 Intake Total 1000 ml Balance 1000 ml Intake IV Total 1000 ml Result Diagram: 05/22/17 1737 05/23/17 0632 Imaging Last Impressions Chest X-Ray 05/22/17 1706 Signed Impressions: Service Date/Time: Monday, May 22, 2017 17:19 - CONCLUSION: Normal examination. Esvin Butler MD Abdomen/Pelvis CT 05/22/17 0000 Signed Impressions: Service Date/Time: Monday, May 22, 2017 18:31 - CONCLUSION: 1. No acute finding is identified to explain the clinical symptoms. 2. Stable 3.9 cm enhancing left lobe liver mass. It has remained stable for approximately 1 year and 5 months, favoring a benign process. Given the appearance, it may represent a hemangioma. Suggest continued attention to this on followup imaging or consider liver ultrasound on an outpatient basis for further characterization. Iron Sanz MD Objective Remarks GENERAL: Well-nourished, well-developed pleasant male patient in [facility]. SKIN: Warm and dry. No rash. HEENT: Normocephalic. Atraumatic.Pupils equal and round. Mucous membranes pink and moist. CARDIOVASCULAR: Regular rate and rhythm. S1, S2 noted. No murmur appreciated. RESPIRATORY: No accessory muscle use. Clear to auscultation. Breath sounds equal bilaterally. GASTROINTESTINAL: Abdomen soft, non-tender, nondistended. Normoactive bowel sounds x4. MUSCULOSKELETAL: No obvious deformities. Extremities without clubbing, cyanosis , or edema. NEUROLOGICAL: Awake and alert. No obvious cranial nerve deficits. Motor grossly within normal limits. Normal speech. PSYCHIATRIC: Appropriate mood and affect; insight and judgment normal. Medications and IVs Current Medications Medications (Trade) Dose Ordered Sig/Chidi Route Start Time Stop Time Status Last Admin (Norvasc) 10 mg DAILY PO 05/23/17 09:00 05/23/17 09:14 (Protonix) 20 mg DAILY PO 05/23/17 09:00 05/23/17 09:14 (NS Flush) 2 ml UNSCH PRN IV FLUSH 05/22/17 21:00 (NS Flush) 2 ml BID IV FLUSH 05/22/17 21:00 (Tylenol) 650 mg Q4H PRN PO 05/22/17 21:00 (Reglan Inj) 5 mg Q6H PRN IV PUSH 05/22/17 21:00 (Narcan Inj) 0.4 mg UNSCH PRN IV PUSH 05/22/17 21:00 (Milk Of Magnesia Liq) 30 ml Q12H PRN PO 05/22/17 21:00 (Senokot) 17.2 mg Q12H PRN PO 05/22/17 21:00 (Dulcolax Supp) 10 mg DAILY PRN RECTAL 05/22/17 21:00 (Lactulose Liq) 30 ml DAILY PRN PO 05/22/17 21:00 (Catapres) 0.1 mg Q6H PRN PO 05/22/17 21:00 A/P Problem List: (1) Intractable nausea and vomiting ICD Code: R11.2 - Nausea with vomiting, unspecified (2) Abnormal EKG ICD Code: R94.31 - Abnormal electrocardiogram [ECG] [EKG] Status: Acute (3) Hypertension ICD Code: I10 - Essential (primary) hypertension Status: Acute (4) Marijuana abuse ICD Code: F12.10 - Cannabis abuse, uncomplicated Assessment and Plan 36-year-old male with a medical history significant for hypertension and GERD presents to the hospital with complaint of epigastric discomfort, nausea and vomiting that has been ongoing all day. Intractable nausea and vomiting, epigastric pain: Highly suspect related to marijuana. I counseled the patient to stop using marijuana or at least trial of marijuana holiday as this may be the cause of his intractable nausea and vomiting. - Given hydration with IV fluid. - Antiemetics prn - Follow for improvement. - Change diet to full liquid Abnormal EKG: EKG reviewed, shows ST changes more prominent in the lateral lead compared to his prior EKGs. This may be evidence of worsening cardiomyopathy or hypertensive heart disease. He denies true chest pain. It is noted his blood pressure has been uncontrolled on presentation here. Unclear if he is compliant with antihypertensives. - Records reviewed, patient with Nuclear Stress Test 04/19/17 showed no reversible defect however with global hypokinesia, EF 39% - ACS rule out with negative serial cardiac enzymes x3. - Check 2-D echocardiogram Accelerated Hypertension: BP 173/100 upon arrival. Question his compliance with antihypertensives. -Patient will need outpatient follow-up to monitor his blood pressure and titrate antihypertensives. Marijuana abuse: -Patient counseled to quit, likely contributing to symptoms DVT Prophylaxis: SCDs Discharge Planning 1750hrs: Patient re-evaluated, he does not feel ready for discharge. He wants to try some more solid foods. His blood pressure is still elevated, will add lisinopril 10mg daily. Plan to hopefully discharge in the morning if tolerating oral intake and BP improves. Virgen Blake PA-C May 23, 2017 12:07
--- NOTE | 2017-05-23 12:52 | ECHRPT ---
Indication: HTN heart disease CONCLUSIONS The left ventricular systolic function is normal with an estimated ejection fraction in the range of 60-65%. Normal left ventricular size. Mild concentric left ventricular hypertrophy. [id number] mitral valve regurgitation. No aortic valve regurgitation. No aortic valve stenosis. There is mild tricuspid valve regurgitation. The estimated pulmonary arterial pressure is 38.9 mmHg. BP: / HR: Rhythm: MEASUREMENTS (Male / Female) Normal Values Technical Quality:Fair 2D ECHO LV Diastolic Diameter PLAX 5.6 cm 4.2 - 5.9 / 3.9 - 5.3 cm LV Systolic Diameter PLAX 4.0 cm IVS Diastolic Thickness 1.7 cm 0.6 - 1.0 / 0.6 - 0.9 cm LVPW Diastolic Thickness 1.1 cm 0.6 - 1.0 / 0.6 - 0.9 cm LV Relative Wall Thickness 0.5 RV Internal Dim ED PLAX 2.8 cm M-MODE Aortic Root Diameter MM 3.2 cm LA Systolic Diameter MM 4.2 cm LA Ao Ratio MM 1.3 AV Cusp Separation MM 2.4 cm DOPPLER Mitral E Point Velocity 74.5 cm/s Mitral A Point Velocity 46.9 cm/s Mitral E to A Ratio 1.6 LV E' Lateral Velocity 13.1 cm/s Mitral E to LV E' Lateral Ratio 5.7 LV E' Septal Velocity 7.3 cm/s Mitral E to LV E' Septal Ratio 10.2 TR Peak Velocity 269.0 cm/s TR Peak Gradient 28.9 mmHg Right Atrial Pressure 10.0 mmHg Pulmonary Artery Systolic Pressu 38.9 mmHg Right Ventricular Systolic Press 38.9 mmHg FINDINGS LEFT VENTRICLE The left ventricular systolic function is normal with an estimated ejection fraction in the range of 60-65%. Normal left ventricular size. Mild concentric left ventricular hypertrophy. RIGHT VENTRICLE Normal right ventricular size and systolic function. LEFT ATRIUM The left atrial size is normal. RIGHT ATRIUM The right atrial size is normal. ATRIAL SEPTUM Normal atrial septal thickness without atrial level shunting by limited color doppler interrogation. AORTA The aortic root and proximal ascending aorta are normal in size on limited imaging. MITRAL VALVE Structurally normal mitral valve. [id number] mitral valve regurgitation. AORTIC VALVE Trileaflet aortic valve. No aortic valve regurgitation. No aortic valve stenosis. TRICUSPID VALVE Structurally normal tricuspid valve. There is mild tricuspid valve regurgitation. The estimated pulmonary arterial pressure is 38.9 mmHg. PULMONARY VALVE No pulmonary valve regurgitation or stenosis. VESSELS The inferior vena cava is normal in size. PERICARDIUM No pericardial effusion. Ney Huffman MD, FACC (Electronically Signed) Final Date:23 May 2017 12:51
[2017-05-23] MEDS ORDERED: ALUMINUM/MAGNESIUM/SIMETH 30 ML CUP PO PRN (17:45)
[2017-05-23] MEDS ORDERED: POTASSIUM CHLORIDE 20 MEQ CONTROLLED RELEASE TAB PO ONE (18:15)
[2017-05-23] MEDS ORDERED: MAGNESIUM HYDROXIDE SUSP 30 ML CUP PO ONE (18:15)
[2017-05-23] MEDS ORDERED: LISINOPRIL 10 MG TAB PO ONE (18:15)
[2017-05-23] MEDS ORDERED: ALUMINUM/MAGNESIUM/SIMETH 30 ML CUP PO ONE (18:45)
[2017-05-23] MEDS ORDERED: ACETAMINOPHEN 325 MG TAB PO PRN (20:00)
[2017-05-23] MEDS: DOCUSATE SODIUM 50 MG/SENNA 8.6 MG TAB PO SCH (20:03)
[2017-05-24] VITALS: PULSE 53
[2017-05-24 00:46] VITALS: BP 142/83; PULSE 56; RESP 19; TEMP 97.8; O2SAT 99
[2017-05-24 03:47] VITALS: PULSE 52
[2017-05-24 04:32] VITALS: BP 132/86; PULSE 53; RESP 16; TEMP 97.9; O2SAT 99
[2017-05-24 07:00] VITALS: PULSE 57
[2017-05-24 07:59] VITALS: BP 150/90; PULSE 67; RESP 16; TEMP 98.3; O2SAT 97
[2017-05-24] MEDS ORDERED: LISINOPRIL 10 MG TAB PO SCH (09:00)
--- NOTE | 2017-05-24 09:09 | HHI.PR ---
Subjective Remarks Follow up for intractable nausea/vomiting/epigastric pain. The patient reports feeling much better again today. Denies any further nausea/vomiting or abdominal pain. Tolerated a soft diet last night. He has an appetite for breakfast this morning. He wants to go home. Objective Vitals Vital Signs Date Time Temp Pulse Resp B/P (MAP) Pulse Ox O2 Delivery O2 Flow Rate FiO2 05/24/17 07:59 98.3 67 16 150/90 (110) 97 05/24/17 04:32 97.9 53 16 132/86 (101) 99 05/24/17 03:47 52 05/24/17 00:46 97.8 56 19 142/83 (102) 99 05/24/17 00:00 53 05/23/17 20:54 57 146/95 (112) 05/23/17 20:29 98.4 72 18 167/106 (126) 96 05/23/17 19:55 74 05/23/17 16:35 98.0 68 16 154/92 (112) 99 05/23/17 15:00 68 05/23/17 12:50 84 05/23/17 12:15 98.9 75 16 157/95 (115) 99 I/O 05/23/17 05/23/17 05/23/17 05/24/17 05/24/17 05/24/17 07:00 15:00 23:00 07:00 15:00 23:00 Intake Total 1450 ml Balance 1450 ml Intake Oral 1450 ml # Voids 4 2 Result Diagram: 05/22/17 1737 05/23/17 0632 Imaging Last Impressions Chest X-Ray 05/22/17 1706 Signed Impressions: Service Date/Time: Monday, May 22, 2017 17:19 - CONCLUSION: Normal examination. Esvin Butler MD Abdomen/Pelvis CT 05/22/17 0000 Signed Impressions: Service Date/Time: Monday, May 22, 2017 18:31 - CONCLUSION: 1. No acute finding is identified to explain the clinical symptoms. 2. Stable 3.9 cm enhancing left lobe liver mass. It has remained stable for approximately 1 year and 5 months, favoring a benign process. Given the appearance, it may represent a hemangioma. Suggest continued attention to this on followup imaging or consider liver ultrasound on an outpatient basis for further characterization. Iron Sanz MD Objective Remarks GENERAL: Well-nourished, well-developed pleasant male patient in [facility]. SKIN: Warm and dry. No rash. HEENT: Normocephalic. Atraumatic.Pupils equal and round. Mucous membranes pink and moist. CARDIOVASCULAR: Regular rate and rhythm. S1, S2 noted. No murmur appreciated. RESPIRATORY: No accessory muscle use. Clear to auscultation. Breath sounds equal bilaterally. GASTROINTESTINAL: Abdomen soft, non-tender, nondistended. Normoactive bowel sounds x4. MUSCULOSKELETAL: No obvious deformities. Extremities without clubbing, cyanosis , or edema. NEUROLOGICAL: Awake and alert. No obvious cranial nerve deficits. Motor grossly within normal limits. Normal speech. PSYCHIATRIC: Appropriate mood and affect; insight and judgment normal. Medications and IVs Current Medications Medications (Trade) Dose Ordered Sig/Chidi Route Start Time Stop Time Status Last Admin (Norvasc) 10 mg DAILY PO 05/23/17 09:00 05/23/17 09:14 (Protonix) 20 mg DAILY PO 05/23/17 09:00 05/23/17 09:14 (NS Flush) 2 ml UNSCH PRN IV FLUSH 05/22/17 21:00 (NS Flush) 2 ml BID IV FLUSH 05/22/17 21:00 05/23/17 20:05 (Tylenol) 650 mg Q4H PRN PO 05/22/17 21:00 (Reglan Inj) 5 mg Q6H PRN IV PUSH 05/22/17 21:00 (Narcan Inj) 0.4 mg UNSCH PRN IV PUSH 05/22/17 21:00 (Milk Of Magnesia Liq) 30 ml Q12H PRN PO 05/22/17 21:00 (Senokot) 17.2 mg Q12H PRN PO 05/22/17 21:00 (Dulcolax Supp) 10 mg DAILY PRN RECTAL 05/22/17 21:00 (Lactulose Liq) 30 ml DAILY PRN PO 05/22/17 21:00 (Catapres) 0.1 mg Q6H PRN PO 05/22/17 21:00 (Mag-Al Plus Susp Liq) 30 ml Q6H PRN PO 05/23/17 17:45 (Anila-Colace) 2 tab BID PO 05/23/17 21:00 05/23/17 20:03 (Prinivil) 10 mg DAILY PO 05/24/17 09:00 (Tylenol) 650 mg Q4H PRN PO 05/23/17 20:00 05/23/17 20:05 A/P Problem List: (1) Intractable nausea and vomiting ICD Code: R11.2 - Nausea with vomiting, unspecified (2) Abnormal EKG ICD Code: R94.31 - Abnormal electrocardiogram [ECG] [EKG] Status: Acute (3) Hypertension ICD Code: I10 - Essential (primary) hypertension Status: Acute (4) Marijuana abuse ICD Code: F12.10 - Cannabis abuse, uncomplicated Assessment and Plan 36-year-old male with a medical history significant for hypertension and GERD presents to the hospital with complaint of epigastric discomfort, nausea and vomiting that has been ongoing all day. Intractable nausea and vomiting, epigastric pain: Highly suspect related to marijuana. I counseled the patient to stop using marijuana or at least trial of marijuana holiday as this is the suspected cause of his intractable nausea and vomiting. - Given hydration with IV fluid. - Antiemetics prn - Follow for improvement. - Advanced diet to soft, patient tolerated well, stable for discharge. Abnormal EKG: EKG reviewed, shows ST changes more prominent in the lateral lead compared to his prior EKGs. This may be evidence of worsening cardiomyopathy or hypertensive heart disease. He denies true chest pain. It is noted his blood pressure has been uncontrolled on presentation here. Unclear if he is compliant with antihypertensives. - Records reviewed, patient with Nuclear Stress Test 04/19/17 showed no reversible defect however with global hypokinesia, EF 39% - ACS rule out with negative serial cardiac enzymes x3. - 2-D echocardiogram with normal systolic function EF 60-65% Accelerated Hypertension: BP 173/100 upon arrival. Question his compliance with antihypertensives. -Patient will need outpatient follow-up to monitor his blood pressure and titrate antihypertensives. -Continued patient's norvasc, also added lisinopril 10mg daily Marijuana abuse: -Patient counseled to quit, likely contributing to symptoms, see above DVT Prophylaxis: SCDs Discharge Planning Discharge patient to home Condition on discharge: Improved Regular Diet as tolerated Ad Johana activity Rx written: norvasc 10mg daily, lisinopril 10mg daily, anila-colace 2tabs bid Follow-up with primary care physician within 1 week Virgen Blake PA-C May 24, 2017 9:09 am
[2017-05-24] MEDS ORDERED: OMEP20TA PO (09:11)
[2017-05-24] MEDS ORDERED: SENN1TAB PO (09:11)
[2017-05-24] MEDS ORDERED: LISI10TA3 PO (09:11)
[2017-05-24] MEDS ORDERED: AMLO10TA2 PO (09:11)
--- NOTE | 2017-05-24 09:12 | HHI.DCPOC ---
Discharge Care Plan Diagnosis: (1) Cannabinoid hyperemesis syndrome (2) Intractable nausea and vomiting (3) Hypertension (4) Marijuana abuse (5) Liver mass Goals to Promote Your Health * To prevent worsening of your condition and complications * To maintain your health at the optimal level Directions to Meet Your Goals Take your medications as prescribed Follow your dietary instruction Follow activity as directed Keep your appointments as scheduled Take your immunizations and boosters as scheduled If your symptoms worsen call your PCP, if no PCP go to Urgent Care Center or Emergency Room Smoking is Dangerous to Your Health. Avoid second hand smoke Call the 24-hour hour crisis hotline for domestic abuse at Virgen Blake PA-C May 24, 2017 9:12 am
[2017-05-24] MEDS: PANTOPRAZOLE SOD 20 MG DELAYED RELEASE TAB PO SCH (09:32)
[2017-05-24] MEDS: SODIUM CHLORIDE 0.9% FLUSH 10 ML FLUSH IV FLUSH SCH (09:33)
[2017-05-24] MEDS: DOCUSATE SODIUM 50 MG/SENNA 8.6 MG TAB PO SCH (09:33)
[2017-05-24 09:50] LABS: POTASSIUM 3.6 MEQ/L (3.5-5.1)
[2017-05-24 10:00] LABS: BICARBONATE 27.2 MEQ/L (21.0-32.0)
[2017-05-24 10:22] LABS: CKMB 5.2 NG/ML (0.5-3.6)
== END 2017-05-24 11:13 | disposition home or self-care (01) ==
LOC: NEPD 16:21 → NEDA 20:25 → NEPHCDU 21:50
PROVIDERS: ADMIT Hospitalist; ATTEND Hospitalist
DX: G43.A0 Cyclical vomiting, in migraine, not intractable (principal); T40.7X5A Adverse effect of cannabis (derivatives), initial encounter; F12.10 Cannabis abuse, uncomplicated; R16.0 Hepatomegaly, not elsewhere classified; K21.9 Gastro-esophageal reflux disease without esophagitis; I10 Essential (primary) hypertension; R94.31 Abnormal electrocardiogram [ECG] [EKG]; I42.9 Cardiomyopathy, unspecified
CPT/HCPCS: 71020; 74177; 80048; 82550; 82552; 84484; 85025; 93005; 93306; 96361; 96374; 96375; 99285; G0378; J2270; J2765; J7030; Q9967

== ENCOUNTER 2017-06-10 06:54 | Emergency (ER) | payer OTHER ==
[~2017-06-10 06:54] MED LIST changes: +LISI10TA3 PO; +SENN1TAB PO
[2017-06-10 07:02] VITALS: BP 184/110; PULSE 90; RESP 20; TEMP 97.5; O2SAT 100
[2017-06-10 07:05] VITALS: BP 201/121; PULSE 88; RESP 22; O2SAT 100
[2017-06-10] MEDS ORDERED: ONDANSETRON HCL 4 MG/2 ML VIAL ONE (07:11)
[2017-06-10] MEDS ORDERED: ALUMINUM/MAGNESIUM/SIMETH 30 ML CUP PO ONE (07:30)
[2017-06-10] MEDS ORDERED: SODIUM CHLORIDE 0.9% FLUSH 10 ML FLUSH IV FLUSH PRN (07:30)
[2017-06-10] MEDS ORDERED: LIDOCAINE VISCOUS 2% SOLN 15 ML UDC PO ONE (07:30)
[2017-06-10] MEDS ORDERED: MORPHINE SULFATE 4 MG/ML INJ IV PUSH ONE ×2 (07:30→09:00)
[2017-06-10] MEDS ORDERED: LORazepam 2 MG/ML VIAL IV PUSH ONE (07:30)
[2017-06-10] MEDS ORDERED: ONDANSETRON HCL 4 MG/2 ML VIAL IVP ONE (07:30)
--- NOTE | 2017-06-10 07:33 | PD ---
HPI Chief Complaint: GI Complaint Time Seen by Provider: 07:08 Travel History International Travel<30 days: No Contact w/Intl Traveler<30days: No Traveled to known affect area: No History of Present Illness HPI This patient complains of epigastric pain. Severity is moderate. It started this morning. Duration 3 hours. No alleviating factors. He's been dealing with spells of this problem for 5 years now. He was hospitalized 2 months ago for the same thing. He complains of heartburn. The epigastric pain radiating toward his chest but it is not chest pain per se. This flare is similar to the prior flares she's had over the years. He smoked marijuana last night. He denies other drug use. Periodic alcohol drinker but not a daily drinker. Denies withdrawal of anything. He is anxious and tremulous. Denies fever. He' s had some nausea and vomiting. No exacerbating factors PFSH Past Medical History Asthma: No Blood Disorders: No Heart Rhythm Problems: No Cancer: No Cardiac Catheterization: No Cardiovascular Problems: Yes (htn) High Cholesterol: No Chemotherapy: No Chest Pain: Yes Congestive Heart Failure: No COPD: No Diabetes: No Diminished Hearing: No Endocrine: No Gastrointestinal Disorders: No GERD: Yes Genitourinary: No Heparin Induced Thrombocytopen: No Hypertension: Yes Immune Disorder: No Implanted Vascular Access Dvce: No Musculoskeletal: No Neurologic: No Psychiatric: No Reproductive: No Respiratory: Yes (PNEUMONIA) Immunizations Current: No Radiation Therapy: No Sleep Apnea: No Thyroid Disease: No Past Surgical History Coronary Artery Bypass Graft: No Other Surgery: No Family History Family Myocardial Infarction: No Social History Alcohol Use: Yes (socially) Tobacco Use: No (former) Substance Use: Yes (WEED) Allergies-Medications (Allergen,Severity, Reaction): Coded Allergies: No Known Allergies (Verified , 06/10/17) Reported Meds & Prescriptions Reported Meds & Active Scripts Active Senna Plus 8.6-50 mg (Sennosides-Docusate Sodium) 8.6 Mg-50 Mg Tab 2 Tab PO BID Take to relieve constipation, hold if stools are watery or loose. Lisinopril 10 Mg Tab 10 Mg PO DAILY Omeprazole 20 Mg Tab 20 Mg PO DAILY Amlodipine (Amlodipine Besylate) 10 Mg Tab 10 Mg PO DAILY Zofran Odt (Ondansetron Odt) 4 Mg Tab 4 Mg SL Q6HR PRN 14 Days Review of Systems General / Constitutional: No: Fever Eyes: No: Visual changes HENT: No: Headaches Cardiovascular: Positive: Chest Pain or Discomfort Respiratory: No: Shortness of Breath Gastrointestinal: Positive: Nausea, Vomiting, Abdominal Pain Genitourinary: No: Dysuria Musculoskeletal: No: Pain Skin: No Rash Neurologic: Positive: Tremor, No: Weakness Psychiatric: Positive: Anxiety, Substance Abuse, No: Depression Endocrine: No: Polydipsia Hematologic/Lymphatic: No: Easy Bruising Physical Exam Narrative GENERAL: Well-nourished, well-developed patient with anxiety and tremor and nausea. SKIN: Focused skin assessment reveals no rash and nodules. Skin is Warm and diaphoretic HEAD: Atraumatic. Normocephalic. EYES: Pupils equal and round. No scleral icterus. No injection or drainage. ENT: No nasal bleeding or discharge. Mucous membranes pink and moist. NECK: Trachea midline. No JVD. CARDIOVASCULAR: Regular rate and rhythm. No murmur appreciated. RESPIRATORY: No accessory muscle use. Clear to auscultation. Breath sounds equal bilaterally. GASTROINTESTINAL: Abdomen soft, non-tender, nondistended. Hepatic and splenic margins not palpable. MUSCULOSKELETAL: No obvious deformities. No clubbing. No cyanosis. No edema. NEUROLOGICAL: Awake and alert. No obvious cranial nerve deficits. Motor grossly within normal limits. Normal speech. PSYCHIATRIC: Anxious mood and affect; insight and judgment questionable . Data Data Last Documented VS Vital Signs Date Time Temp Pulse Resp B/P (MAP) Pulse Ox O2 Delivery O2 Flow Rate FiO2 06/10/17 08:09 20 06/10/17 08:00 98 158/110 (126) 98 Room Air 06/10/17 07:02 97.5 Orders Orders Ondansetron Inj (Zofran Inj) (06/10/17 07:11) Complete Blood Count With Diff (06/10/17 07:22) Comprehensive Metabolic Panel (06/10/17 07:22) Lipase (06/10/17 07:22) Prothrombin Time / Inr (Pt) (06/10/17 07:22) Act Partial Throm Time (Ptt) (06/10/17 07:22) Iv Access Insert/Monitor (06/10/17 07:22) Ecg Monitoring (06/10/17 07:22) Oximetry (06/10/17 07:22) Morphine Inj (Morphine Inj) (06/10/17 07:30) Ondansetron Inj (Zofran Inj) (06/10/17 07:30) Sodium Chloride 0.9% Flush (Ns Flush) (06/10/17 07:30) Electrocardiogram (06/10/17 07:22) Al-Mag Hy-Si 40-40-4 Mg/Ml Liq (Mag-Al P (06/10/17 07:30) Lidocaine 2% Viscous (Xylocaine 2% Visco (06/10/17 07:30) Lorazepam Inj (Ativan Inj) (06/10/17 07:30) Ckmb (Isoenzyme) Profile (06/10/17 07:22) Troponin I (06/10/17 07:22) CKMB (06/10/17 07:35) CKMB% (06/10/17 07:35) Morphine Inj (Morphine Inj) (06/10/17 09:00) Ondansetron Inj (Zofran Inj) (06/10/17 09:00) Clonidine (Catapres) (06/10/17 09:00) Ed Discharge Order (06/10/17 09:01) Labs Laboratory Tests Test 06/10/17 07:35 White Blood Count 7.6 TH/MM3 Red Blood Count 4.79 MIL/MM3 Hemoglobin 14.8 GM/DL Hematocrit 43.8 % Mean Corpuscular Volume 91.4 FL Mean Corpuscular Hemoglobin 30.9 PG Mean Corpuscular Hemoglobin Concent 33.8 % Red Cell Distribution Width 13.8 % Platelet Count 315 TH/MM3 Mean Platelet Volume 7.6 FL CBC Comment AUTO DIFF Differential Total Cells Counted 100 Neutrophils % (Manual) 48 % Lymphocytes % 37 % Monocytes % 15 % Neutrophils # (Manual) 3.6 TH/MM3 Differential Comment FINAL DIFF MANUAL Platelet Estimate NORMAL Platelet Morphology Comment NORMAL Red Cell Morphology Comment NORMAL Prothrombin Time 9.9 SEC Prothromb Time International Ratio 0.9 RATIO Activated Partial Thromboplast Time 30.1 SEC Blood Urea Nitrogen 9 MG/DL Creatinine 1.09 MG/DL Random Glucose 111 MG/DL Total Protein 9.4 GM/DL Albumin 4.6 GM/DL Calcium Level 10.1 MG/DL Alkaline Phosphatase 65 U/L Aspartate Amino Transf (AST/SGOT) 26 U/L Alanine Aminotransferase (ALT/SGPT) 39 U/L Total Bilirubin 0.5 MG/DL Sodium Level 140 MEQ/L Potassium Level 4.3 MEQ/L Chloride Level 108 MEQ/L Carbon Dioxide Level 21.5 MEQ/L Anion Gap 11 MEQ/L Estimat Glomerular Filtration Rate 93 ML/MIN Total Creatine Kinase 547 U/L Creatine Kinase MB 3.7 NG/ML Creatine Kinase MB % 0.7 % Troponin I LESS THAN 0.02 NG/ML Lipase 154 U/L [facility] Medical Decision Making Medical Screen Exam Complete: Yes Emergency Medical Condition: Yes Medical Record Reviewed: Yes Differential Diagnosis Differential diagnosis includes pancreatitis, biliary colic, hepatitis, GERD, peptic ulcer disease. Narrative Course I have reviewed the patient's electronic medical record. Reviewed his admission history and physical from 2 months ago. Patient had a treadmill exam 2 months ago as well IV placed CBC is normal metabolic profile is normal LFT's are normal lipase is normal Coagulation studies are normal CK is slightly elevated but the MB percent is normal Troponin is normal I reviewed his EKG which shows sinus rhythm with occasional ectopic beat no acute ST elevation consecutive leads to suggest ACS Extended cardiac monitoring reveals sinus rhythm with occasional ectopic beat I gave him multiple medications including IV Ativan and IV morphine and IV Zofran followed by Maalox/lidocaine combination Initially hypertensive on arrival, will reassess after medication Blood pressure came down to the 150s but then christiano back up to 180s over 110 I gave an additional dose of Zofran and morphine and clonidine Patient should check and record blood pressure daily Recommended acid blockers and dietary modification Stable for outpatient follow-up He feels much better on recheck This is noncardiac Diagnosis Primary Impression: Epigastric pain Additional Instructions: The patient was advised to follow up with their physician and return if they worsen. I have recommended clear liquids for 24 hours, then gradually advance as tolerated. Recommend [id number] Prilosec daily Med/Other Pt SpecificInfo: Other Disposition: 01 DISCHARGE HOME Condition: Stable Lorne Fischer MD Jun 10, 2017 07:33
[2017-06-10 08:00] VITALS: BP 158/110; PULSE 98; RESP 20; O2SAT 98
[2017-06-10 08:05] LABS: HEMATOCRIT 43.8 % (39.0-51.0); MEAN CELL VOLUME 91.4 FL (80.0-100.0); MEAN CORPUSCULAR HEMOGLOBIN 30.9 PG (27.0-34.0); MEAN CORPUSCULAR HGB CONC 33.8 % (32.0-36.0); PLATELET COUNT 315 TH/MM3 (150-450); RED BLOOD COUNT 4.79 MIL/MM3 (4.50-5.90); RED CELL DISTRIBUTION WIDTH 13.8 % (11.6-17.2); WHITE BLOOD COUNT 7.6 TH/MM3 (4.0-11.0)
[2017-06-10 08:06] LABS: HEMO FLAGS AUTO DIFF
[2017-06-10 08:12] LABS: APTT (PATIENT) 30.1 SEC (24.3-30.1); INTERNATIONAL NORMALIZED RATIO 0.9 RATIO; PROTHROMBIN TIME - PATIENT 9.9 SEC (9.8-11.6)
[2017-06-10 08:20] LABS: ALKALINE PHOSPHATASE 65 U/L (45-117); CREATINE KINASE 547 U/L (39-308); TOTAL BILIRUBIN ADULT 0.5 MG/DL (0.2-1.0)
[2017-06-10 08:33] LABS: CKMB 3.7 NG/ML (0.5-3.6)
[2017-06-10 08:39] LABS: NEUTROPHIL # MANUAL DIFF 3.6 TH/MM3 (1.8-7.7); PLATELET ESTIMATE SMEAR NORMAL (NORMAL); PLATELET MORPHOLOGY NORMAL (NORMAL); POLYS (SEG NEUTROPHILS) 48 % (16-70); SCAN/DIFF FINAL DIFF MANUAL; WBC DIFF SAMPLE 100
[2017-06-10 08:52] LABS: ALT (GPT) 39 U/L (12-78); ANION GAP 11 MEQ/L (5-15); AST (GOT) 26 U/L (15-37); BICARBONATE 21.5 MEQ/L (21.0-32.0); BLOOD UREA NITROGEN 9 MG/DL (7-18); CHLORIDE 108 MEQ/L (98-107); GLOMERULAR FILTRATION RATE 93 ML/MIN (>89); POTASSIUM 4.3 MEQ/L (3.5-5.1); SODIUM (NA) 140 MEQ/L (136-145)
[2017-06-10] MEDS ORDERED: cloNIDine HCL 0.2 MG TAB PO ONE (09:00)
[2017-06-10] MEDS ORDERED: ONDANSETRON HCL 4 MG/2 ML VIAL IV ONE (09:00)
[2017-06-10 11:07] VITALS: BP 158/88
[2017-06-10 11:46] VITALS: RESP 18
--- NOTE | 2017-06-10 16:27 | EKG ---
Date Performed: 06/10/2017 Time Performed: 07:11:19 PTAGE: 36 years EKG: Sinus rhythm WITH OCCASIONAL SUPRAVENTRICULAR PREMATURE COMPLEXES POSSIBLE LEFT ATRIAL ENLARGEMENT MARKED LEFT AX IS DEVIATION INCOMPLETE RIGHT BUNDLE BRANCH BLOCK LEFT VENTRICULAR HYPERTROPHY AND ST-T CHANGE POSSIB LE SEPTAL MYOCARDIAL INFARCTION Possible LATERAL MYOCARDIAL INFARCTION ABNORMAL ECG Compared to prior electrocardiogram, T-wave inversion is less prominent. PREVIOUS TRACING : 05/22/2017 17.33 DOCTOR: Steven Yancey Interpretating Date/Time 06/10/2017 16:24:59
== END 2017-06-10 11:30 | disposition home or self-care (01) ==
LOC: NEPE 06:54
DX: R10.13 Epigastric pain (principal); I10 Essential (primary) hypertension; K21.9 Gastro-esophageal reflux disease without esophagitis; Z87.891 Personal history of nicotine dependence; Z79.899 Other long term (current) drug therapy
CPT/HCPCS: 80053; 82550; 82552; 83690; 84484; 85007; 85027; 85610; 85730; 93005; 96374; 96375; 96376; 99284; J2060; J2270; J2405

== ENCOUNTER 2017-06-12 17:18 | Emergency (ER) | payer SELFPAY ==
[~2017-06-12] VITALS: Ht 182.9 cm; Wt 120.0 kg
[2017-06-12 17:22] VITALS: BP 176/107; PULSE 84; RESP 30; TEMP 99; O2SAT 100
== END 2017-06-12 20:31 | disposition left against medical advice (07) ==
LOC: NETRI 17:18
DX: Z53.21 Procedure and treatment not carried out due to patient leaving prior to being seen by health care provider (principal)
CPT/HCPCS: 99281

== ENCOUNTER 2017-07-26 15:13 | Emergency (ER) | payer OTHER ==
[~2017-07-26] VITALS: Ht 182.9 cm; Wt 122.0 kg
[~2017-07-26 15:13] MED LIST changes: -OMEP20TA PO; +OMEP20TA93 PO
[2017-07-26] MEDS ORDERED: SODIUM CHLOR 0.9% 1000 ML INJ 1,000 ML IV SCH (15:48)
--- NOTE | 2017-07-26 15:51 | PD ---
HPI Chief Complaint: abdominal pain Time Seen by Provider: 15:42 Travel History International Travel<30 days: No Contact w/Intl Traveler<30days: No Traveled to known affect area: No History of Present Illness HPI 36-year-old male came to the emergency room brought by EMS for severe left upper quadrant abdominal pain radiating up to the substernal area of the chest. Patient was a difficult historian given his distress from the pain. The extension service specialist in charge was giving most of the history. Patient was seen in the emergency room a few days ago for exact same pain. He also went to [facility] for second opinion where he was discharged home on pain medication as well as antibiotic. Patient has been taking these medications. Vital signs were stable. He was diaphoretic when he came in. No aggravating or relieving factors identified but then again the patient was not the best historian on that circumstances. [facility] Past Medical History Narrative Medical List of his past medical, surgical, social and family history is reviewed from the nursing note. Asthma: No Blood Disorders: No Heart Rhythm Problems: No Cancer: No Cardiac Catheterization: No Cardiovascular Problems: Yes (htn) High Cholesterol: No Chemotherapy: No Chest Pain: Yes Congestive Heart Failure: No COPD: No Diabetes: No Diminished Hearing: No Endocrine: No Gastrointestinal Disorders: No GERD: Yes Genitourinary: No Heparin Induced Thrombocytopen: No Hypertension: Yes Immune Disorder: No Implanted Vascular Access Dvce: No Musculoskeletal: No Neurologic: No Psychiatric: No Reproductive: No Respiratory: Yes (PNEUMONIA) Immunizations Current: No Radiation Therapy: No Sleep Apnea: No Thyroid Disease: No Past Surgical History Coronary Artery Bypass Graft: No Other Surgery: No Social History Alcohol Use: Yes (socially) Tobacco Use: No (former) Substance Use: Yes (WEED) Allergies-Medications (Allergen,Severity, Reaction): Coded Allergies: No Known Allergies (Verified Adverse Reaction, Unknown, 07/26/17) Comments No known drug allergies Reported Meds & Prescriptions Reported Meds & Active Scripts Active Bentyl (Dicyclomine HCl) 10 Mg Cap 10 Mg PO TID PRN Carafate (Sucralfate) 1 Gram Tab 1 Gm PO QID On empty stomach Omeprazole 20 Mg Tab 20 Mg PO DAILY Amlodipine (Amlodipine Besylate) 10 Mg Tab 10 Mg PO DAILY Reported Percocet (Oxycodone-Acetaminophen) 7.5-325 mg Tab 1 Tab PO Q6H PRN Pantoprazole (Pantoprazole Sodium) 40 Mg Tab 40 Mg PO DAILY Narrative Medication List of his home medications reviewed from the nursing note. Review of Systems Except as stated in HPI: all other systems reviewed are Neg Cardiovascular: Positive: Chest Pain or Discomfort Gastrointestinal: Positive: Abdominal Pain Physical Exam Narrative GENERAL: Awake, alert, moderate to significant distress, extremely anxious SKIN: Focused skin assessment warm/dry. Diaphoretic HEAD: Atraumatic. Normocephalic. EYES: Pupils equal and round. No scleral icterus. No injection or drainage. ENT: No nasal bleeding or discharge. Mucous membranes pink and moist. NECK: Trachea midline. No JVD. CARDIOVASCULAR: Regular rate and rhythm. No murmur appreciated. RESPIRATORY: No accessory muscle use. Clear to auscultation. Breath sounds equal bilaterally. GASTROINTESTINAL: Abdomen soft, non-tender, nondistended. Hepatic and splenic margins not palpable. MUSCULOSKELETAL: No obvious deformities. No clubbing. No cyanosis. No edema. NEUROLOGICAL: Awake and alert. No obvious cranial nerve deficits. Motor grossly within normal limits. Normal speech. PSYCHIATRIC: Anxious out of proportion; insight and judgment normal. Data Data Last Documented VS Orders Orders Complete Blood Count With Diff (07/26/17 15:48) Comprehensive Metabolic Panel (07/26/17 15:48) Lipase (07/26/17 15:48) Urinalysis - C+S If Indicated (07/26/17 15:48) Iv Access Insert/Monitor (07/26/17 15:48) Ecg Monitoring (07/26/17 15:48) Oximetry (07/26/17 15:48) Ondansetron Inj (Zofran Inj) (07/26/17 16:00) Sodium Chlor 0.9% 1000 Ml Inj (Ns 1000 M (07/26/17 15:48) Sodium Chloride 0.9% Flush (Ns Flush) (07/26/17 16:00) Electrocardiogram (07/26/17 15:48) Pantoprazole Inj (Protonix Inj) (07/26/17 16:00) Chest, Single Ap (07/26/17 ) Cta Thor Abd Aorta W Iv C W3d (07/26/17 ) Morphine Inj (Morphine Inj) (07/26/17 16:15) Drug Screen, Random Urine (07/26/17 16:29) Troponin I (07/26/17 16:15) Iohexol 350 Inj (Omnipaque 350 Inj) (07/26/17 17:44) Morphine Inj (Morphine Inj) (07/26/17 18:30) Ketorolac Inj (Toradol Inj) (07/26/17 18:30) Troponin I (07/26/17 18:52) Ondansetron Inj (Zofran Inj) (07/26/17 19:00) Ed Discharge Order (07/26/17 20:47) Electrocardiogram (07/26/17 20:25) Electrocardiogram (07/26/17 18:08) Labs Laboratory Tests Test 07/26/17 16:00 07/26/17 16:15 07/26/17 19:10 Urine Color YELLOW Urine Turbidity CLEAR Urine pH 8.5 Urine Specific [place] 1.020 Urine Protein 30 mg/dL Urine Glucose (UA) NEG mg/dL Urine Ketones 80 mg/dL Urine Occult Blood NEG Urine Nitrite NEG Urine Bilirubin NEG Urine Urobilinogen LESS THAN 2.0 MG/DL Urine Leukocyte Esterase NEG Urine RBC 1 /hpf Urine WBC 1 /hpf Urine Squamous Epithelial Cells <1 /hpf Urine Mucus FEW /lpf Microscopic Urinalysis Comment CULT NOT INDICATED Urine Opiates Screen NEG Urine Barbiturates Screen NEG Urine Amphetamines Screen NEG Urine Benzodiazepines Screen NEG Urine Cocaine Screen NEG Urine Cannabinoids Screen POS White Blood Count 10.9 TH/MM3 Red Blood Count 4.67 MIL/MM3 Hemoglobin 14.1 GM/DL Hematocrit 43.0 % Mean Corpuscular Volume 92.1 FL Mean Corpuscular Hemoglobin 30.2 PG Mean Corpuscular Hemoglobin Concent 32.8 % Red Cell Distribution Width 13.2 % Platelet Count 274 TH/MM3 Mean Platelet Volume 8.5 FL Neutrophils (%) (Auto) 79.7 % Lymphocytes (%) (Auto) 11.1 % Monocytes (%) (Auto) 8.0 % Eosinophils (%) (Auto) 0.1 % Basophils (%) (Auto) 1.1 % Neutrophils # (Auto) 8.7 TH/MM3 Lymphocytes # (Auto) 1.2 TH/MM3 Monocytes # (Auto) 0.9 TH/MM3 Eosinophils # (Auto) 0.0 TH/MM3 Basophils # (Auto) 0.1 TH/MM3 CBC Comment DIFF FINAL Differential Comment Blood Urea Nitrogen 10 MG/DL Creatinine 1.24 MG/DL Random Glucose 139 MG/DL Total Protein 8.8 GM/DL Albumin 4.5 GM/DL Calcium Level 9.4 MG/DL Alkaline Phosphatase 56 U/L Aspartate Amino Transf (AST/SGOT) 19 U/L Alanine Aminotransferase (ALT/SGPT) 23 U/L Total Bilirubin 1.1 MG/DL Sodium Level 137 MEQ/L Potassium Level 3.3 MEQ/L Chloride Level 104 MEQ/L Carbon Dioxide Level 21.1 MEQ/L Anion Gap 12 MEQ/L Estimat Glomerular Filtration Rate 80 ML/MIN Troponin I LESS THAN 0.02 NG/ML 0.02 NG/ML Lipase 67 U/L [facility] Medical Decision Making Medical Screen Exam Complete: Yes Emergency Medical Condition: Yes Medical Record Reviewed: Yes Interpretation(s) Twelve-lead EKG was reviewed by me. Normal sinus rhythm, left axis deviation, LVH, LV strain, no change since the EKG done on May 2017. Heart rate of 70 bpm. Differential Diagnosis ACS, non-STEMI, acute pancreatitis, aortic dissection Narrative Course 6:22 PM patient was medicated for pain and nausea. Blood test results of back and within acceptable limits. Chest x-rays negative. I repeated the 12-lead EKG and it is unchanged from his first EKG. Patient had his CAT scan done to rule out aortic dissection. Awaiting for the CT report. 7:[address] aortogram is negative for any dissection or any other acute abnormalities. I've ordered a second troponin. Case has been signed out to the oncoming ER physician. In my opinion if the second troponin is negative patient can be discharged home. Patient had a nuclear stress test 2 months ago that was negative. Procedures EKG Prior to Arrival: Yes Scripts Dicyclomine (Bentyl) 10 Mg Cap 10 MG PO TID Y for Bowel Management, #21 CAP 0 Refills Prov: Thom Herrmann MD 07/26/17 Sucralfate (Carafate) 1 Gram Tab 1 GM PO QID for Ulcer Prevention, #120 TAB 0 Refills On empty stomach Prov: Thom Herrmann MD 07/26/17 Steffanie Chaidez MD Jul 26, 2017 15:50
[2017-07-26 16:00] VITALS: RESP 25; O2SAT 100
[2017-07-26] MEDS ORDERED: SODIUM CHLORIDE 0.9% FLUSH 10 ML FLUSH IV FLUSH PRN (16:00)
[2017-07-26] MEDS ORDERED: ONDANSETRON HCL 4 MG/2 ML VIAL IVP ONE (16:00)
[2017-07-26] MEDS ORDERED: PANTOPRAZOLE SODIUM 40 MG VIAL IV PUSH ONE (16:00)
[2017-07-26 16:02] VITALS: BP 160/77; PULSE 74; RESP 34; TEMP 98.6; O2SAT 100
[2017-07-26] MEDS ORDERED: MORPHINE SULFATE 4 MG/ML INJ IV PUSH ONE ×2 (16:15→18:30)
[2017-07-26] MEDS ORDERED: PANT40TA3 PO (16:21)
[2017-07-26] MEDS ORDERED: PERC7.5T13 PO (16:21)
[2017-07-26 16:55] LABS: AUTOMATED NEUTROPHIL # 8.7 TH/MM3 (1.8-7.7); BASOPHIL # 0.1 TH/MM3 (0-0.2); BASOPHIL % 1.1 % (0.0-2.0); EOSINOPHIL % 0.1 % (0.0-4.0); HEMO FLAGS DIFF FINAL; LYMPH % 11.1 % (9.0-44.0); LYMPHOCYTE # 1.2 TH/MM3 (1.0-4.8); MEAN CELL VOLUME 92.1 FL (80.0-100.0); MEAN CORPUSCULAR HEMOGLOBIN 30.2 PG (27.0-34.0); MEAN CORPUSCULAR HGB CONC 32.8 % (32.0-36.0); NEUT % 79.7 % (16.0-70.0); PLATELET COUNT 274 TH/MM3 (150-450); RED BLOOD COUNT 4.67 MIL/MM3 (4.50-5.90); RED CELL DISTRIBUTION WIDTH 13.2 % (11.6-17.2); WHITE BLOOD COUNT 10.9 TH/MM3 (4.0-11.0)
[2017-07-26 17:04] LABS: BLOOD, URINE NEG (NEG); COMMENT (UR) CULT NOT INDICATED; CULTURE IF INDICATED CULT NOT INDICATED; GLUCOSE,URINE NEG (NEG); KETONE, URINE 80 mg/dL (NEG); MUCUS URINE FEW /lpf (OCC); NITRITE,URINE NEG (NEG); PH, URINE 8.5 (5.0-8.5); SQUAMOUS EPITHELIAL CELL URINE <1 /hpf (0-5); URINE COLOR YELLOW (YELLW/STRAW)
[2017-07-26 17:12] LABS: ALT (GPT) 23 U/L (12-78); ANION GAP 12 MEQ/L (5-15); AST (GOT) 19 U/L (15-37); BICARBONATE 21.1 MEQ/L (21.0-32.0); BLOOD UREA NITROGEN 10 MG/DL (7-18); CHLORIDE 104 MEQ/L (98-107); GLOMERULAR FILTRATION RATE 80 ML/MIN (>89); POTASSIUM 3.3 MEQ/L (3.5-5.1); SODIUM (NA) 137 MEQ/L (136-145)
[2017-07-26 17:15] LABS: ALKALINE PHOSPHATASE 56 U/L (45-117); TOTAL BILIRUBIN ADULT 1.1 MG/DL (0.2-1.0)
--- NOTE | 2017-07-26 17:20 | RADRPT ---
EXAM DATE/TIME: 07/26/2017 16:42 [facility] COMPARISON: CHEST SINGLE AP, April 18, 2017, 9:44. INDICATIONS : Abdominal pain, chest pain, and shortness of breath. MEDICAL HISTORY : None. SURGICAL HISTORY : None. ENCOUNTER: Initial ACUITY: 1 day PAIN SCORE: 10/10 LOCATION: Abdomen, unspecified. FINDINGS: A single view of the chest demonstrates the lungs to be symmetrically aerated without evidence of mas s, infiltrate or effusion. The cardiomediastinal contours are unremarkable. Osseous structures are intact. CONCLUSION: No acute disease. Srikanth Aguilar MD FACR on July 26, 2017 at 17:18 Board Certified Radiologist. This report was verified electronically.
[2017-07-26] MEDS ORDERED: IOHEXOL 350 MG/ML 10 ML VIAL (for RAD DIAG) IVCONTRAST ONE (17:44)
[2017-07-26] MEDS ORDERED: KETOROLAC TROMETHAMINE 30 MG/ML (IVP) VIAL IV PUSH ONE (18:30)
--- NOTE | 2017-07-26 18:59 | RADRPT ---
EXAM DATE/TIME: 07/26/2017 17:39 [facility] COMPARISON: No previous studies available for comparison. INDICATIONS : Left sided chest and abdomen pain. IV CONTRAST: 95 cc Omnipaque 350 (iohexol) IV RADIATION DOSE: 28.78 CTDIvol (mGy) ; Patient body habitus MEDICAL HISTORY : Hypertension. SURGICAL HISTORY : None. ENCOUNTER: Initial ACUITY: 1 day PAIN SCALE: 10/10 LOCATION: Left chest abdomen TECHNIQUE: Volumetric scanning was performed using a multi-row detector CT scanner. The data was post processed with a variety of visualization algorithms including full volume maximum intensity projection, multi -planar sliding thin slab reformation, curved planar reformation, and surface rendering techniques. Using automated exposure control and adjustment of the mA and/or kV according to patient size, radiat ion dose was kept as low as reasonably achievable to obtain optimal diagnostic quality images. DICOM format image data is available electronically for review and comparison. FINDINGS: LUNGS: There is no consolidation or pneumothorax. No concerning pulmonary nodule is visualized. No pleural fluid is present. MEDIASTINUM: No abnormally enlarged lymph nodes by CT criteria. No axillary or hilar abnormalities are identified. ABDOMEN: The liver and spleen are free of focal defects. The gallbladder and pancreas demonstrate no abnormali ty. The adrenal glands are normal. The kidneys demonstrate no evidence of solid renal mass or hydrone phrosis. Benign-appearing 1.4 cm cyst in the lateral upper pole of the left kidney No free fluid or a bdominal masses are identified. No para-aortic adenopathy is seen. PELVIS: No evidence of free fluid or pelvic mass. No abnormally enlarged inguinal or retroperitoneal lymph no natasha are present. The bladder is unremarkable. THORACIC AORTA: The thoracic aortic root is normal with normal branching of the great vessels. There is no evidence of aneurysm or dissection. ABDOMINAL AORTA: The aorta is normal in caliber without aneurysm or dissection. The renal arteries are patent bilater ally. The proximal celiac and superior mesenteric arteries are patent and normal in diameter. Branch vessels of the celiac are somewhat difficult to delineate due to regional motion artifact. PELVIC VESSELS: The internal iliac and external iliac vessels are patent without aneurysm or stenosis. CONCLUSION: 1. Benign-appearing left renal cyst. 2. Otherwise negative Octavio Sun MD on July 26, 2017 at 18:49 Board Certified Radiologist. This report was verified electronically.
[2017-07-26] MEDS ORDERED: ONDANSETRON HCL 4 MG/2 ML VIAL IV PUSH ONE (19:00)
[2017-07-26 19:12] VITALS: BP 170/96; PULSE 70; RESP 16; O2SAT 100
--- NOTE | 2017-07-26 19:57 | PD ---
Physical Exam Narrative Patient was seen by ED physician and signed out to me. Data Data Last Documented VS Vital Signs Date Time Temp Pulse Resp B/P (MAP) Pulse Ox O2 Delivery O2 Flow Rate FiO2 07/26/17 19:12 70 16 170/96 (120) 100 Room Air 07/26/17 16:02 98.6 Orders Orders Complete Blood Count With Diff (07/26/17 15:48) Comprehensive Metabolic Panel (07/26/17 15:48) Lipase (07/26/17 15:48) Urinalysis - C+S If Indicated (07/26/17 15:48) Iv Access Insert/Monitor (07/26/17 15:48) Ecg Monitoring (07/26/17 15:48) Oximetry (07/26/17 15:48) Ondansetron Inj (Zofran Inj) (07/26/17 16:00) Sodium Chlor 0.9% 1000 Ml Inj (Ns 1000 M (07/26/17 15:48) Sodium Chloride 0.9% Flush (Ns Flush) (07/26/17 16:00) Electrocardiogram (07/26/17 15:48) Pantoprazole Inj (Protonix Inj) (07/26/17 16:00) Chest, Single Ap (07/26/17 ) Cta Thor Abd Aorta W Iv C W3d (07/26/17 ) Morphine Inj (Morphine Inj) (07/26/17 16:15) Drug Screen, Random Urine (07/26/17 16:29) Troponin I (07/26/17 16:15) Iohexol 350 Inj (Omnipaque 350 Inj) (07/26/17 17:44) Morphine Inj (Morphine Inj) (07/26/17 18:30) Ketorolac Inj (Toradol Inj) (07/26/17 18:30) Troponin I (07/26/17 18:52) Ondansetron Inj (Zofran Inj) (07/26/17 19:00) Labs Laboratory Tests Test 07/26/17 16:00 07/26/17 16:15 07/26/17 19:10 Urine Color YELLOW Urine Turbidity CLEAR Urine pH 8.5 Urine Specific [place] 1.020 Urine Protein 30 mg/dL Urine Glucose (UA) NEG mg/dL Urine Ketones 80 mg/dL Urine Occult Blood NEG Urine Nitrite NEG Urine Bilirubin NEG Urine Urobilinogen LESS THAN 2.0 MG/DL Urine Leukocyte Esterase NEG Urine RBC 1 /hpf Urine WBC 1 /hpf Urine Squamous Epithelial Cells <1 /hpf Urine Mucus FEW /lpf Microscopic Urinalysis Comment CULT NOT INDICATED Urine Opiates Screen NEG Urine Barbiturates Screen NEG Urine Amphetamines Screen NEG Urine Benzodiazepines Screen NEG Urine Cocaine Screen NEG Urine Cannabinoids Screen POS White Blood Count 10.9 TH/MM3 Red Blood Count 4.67 MIL/MM3 Hemoglobin 14.1 GM/DL Hematocrit 43.0 % Mean Corpuscular Volume 92.1 FL Mean Corpuscular Hemoglobin 30.2 PG Mean Corpuscular Hemoglobin Concent 32.8 % Red Cell Distribution Width 13.2 % Platelet Count 274 TH/MM3 Mean Platelet Volume 8.5 FL Neutrophils (%) (Auto) 79.7 % Lymphocytes (%) (Auto) 11.1 % Monocytes (%) (Auto) 8.0 % Eosinophils (%) (Auto) 0.1 % Basophils (%) (Auto) 1.1 % Neutrophils # (Auto) 8.7 TH/MM3 Lymphocytes # (Auto) 1.2 TH/MM3 Monocytes # (Auto) 0.9 TH/MM3 Eosinophils # (Auto) 0.0 TH/MM3 Basophils # (Auto) 0.1 TH/MM3 CBC Comment DIFF FINAL Differential Comment Blood Urea Nitrogen 10 MG/DL Creatinine 1.24 MG/DL Random Glucose 139 MG/DL Total Protein 8.8 GM/DL Albumin 4.5 GM/DL Calcium Level 9.4 MG/DL Alkaline Phosphatase 56 U/L Aspartate Amino Transf (AST/SGOT) 19 U/L Alanine Aminotransferase (ALT/SGPT) 23 U/L Total Bilirubin 1.1 MG/DL Sodium Level 137 MEQ/L Potassium Level 3.3 MEQ/L Chloride Level 104 MEQ/L Carbon Dioxide Level 21.1 MEQ/L Anion Gap 12 MEQ/L Estimat Glomerular Filtration Rate 80 ML/MIN Troponin I LESS THAN 0.02 NG/ML 0.02 NG/ML Lipase 67 U/L [facility] Supervised Visit with DRISS: No Interpretation(s) Last Impressions Chest X-Ray 07/26/17 0000 Signed Impressions: Service Date/Time: Wednesday, July 26, 2017 16:42 - CONCLUSION: No acute disease. Srikanth Aguilar MD FACR Aorta CTA 07/26/17 0000 Signed Impressions: Service Date/Time: Wednesday, July 26, 2017 17:39 - CONCLUSION: 1. Benign-appearing left renal cyst. 2. Otherwise negative Octavio Sun MD 1953 PM. CBC within normal limit. CMP within normal limit. Cardiac enzymes are normal. UA is negative. Urine drug screen positive for cannabis. 2040 PM. second set of cardiac enzymes normal. Diagnosis Primary Impression: Atypical chest pain Additional Impression: Abdominal pain Qualified Codes: R10.12 - Left upper quadrant pain Patient Instructions: General Instructions Additional Instruction: Take medications as directed. 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 Return if worse. Med/Other Pt SpecificInfo: Prescription(s) given Scripts Dicyclomine (Bentyl) 10 Mg Cap 10 MG PO TID Y for Bowel Management, #21 CAP 0 Refills Prov: Thom Herrmann MD 07/26/17 Sucralfate (Carafate) 1 Gram Tab 1 GM PO QID for Ulcer Prevention, #120 TAB 0 Refills On empty stomach Prov: Thom Herrmann MD 07/26/17 Disposition: 01 DISCHARGE HOME Condition: Stable Thom Herrmann MD Jul 26, 2017 19:57
[2017-07-26] MEDS ORDERED: CARA1TAB6 PO (20:46)
[2017-07-26] MEDS ORDERED: DICY10 PO (20:46)
--- NOTE | 2017-07-28 15:58 | EKG ---
Date Performed: 07/26/2017 Time Performed: 15:53:36 PTAGE: 36 years EKG: NORMAL Sinus rhythm MARKED LEFT AXIS DEVIATION LEFT VENTRICULAR HYPERTROPHY INVERTED ANTEROLATERAL T-WAVES CONCERNING FO R ISCHEMIA, CVA, OR LVH. Compared to previous tracing, the patient has interval development of invert ed T-waves. ABNORMAL ECG PREVIOUS TRACING 06/10/2017 07.11.19 DOCTOR: Alysia Gallego Interpretating Date/Time 07/28/2017 15:58:08
--- NOTE | 2017-07-28 15:59 | EKG ---
Date Performed: 07/26/2017 Time Performed: 18:08:01 PTAGE: 36 years EKG: Sinus rhythm WITH SINUS ARRHYTHMIA POSSIBLE LEFT ATRIAL ENLARGEMENT MARKED LEFT AXIS DEVIATION INCOMPLETE RIGHT B UNDLE BRANCH BLOCK LEFT VENTRICULAR HYPERTROPHY POSSIBLE LATERAL MYOCARDIAL INFARCTION INVERTED LATER AL T-WAVES SECONDARY TO HYPERTROPHY AND/OR ISCHEMIA Since previous tracing, no significant change not ed ABNORMAL ECG PREVIOUS TRACING : 07/26/2017 15.53 DOCTOR: Alysia Gallego Interpretating Date/Time 07/28/2017 15:58:58
--- NOTE | 2017-07-28 16:02 | EKG ---
Date Performed: 07/26/2017 Time Performed: 20:25:35 PTAGE: 36 years EKG: NORMAL Sinus rhythm WITH SINUS ARRHYTHMIA LEFT VENTRICULAR HYPERTROPHY AND ST-T CHANGE ABNORMAL ECG ST-T changes concern ing or consistent with LVH vs. ischemia vs. other. Artifact in V6 but likely no significant change. PREVIOUS TRACING : 07/26/2017 20.24 DOCTOR: Alysia Gallego Interpretating Date/Time 07/28/2017 16:02:15
== END 2017-07-26 21:10 | disposition home or self-care (01) ==
LOC: NEPE 15:13
DX: R07.89 Other chest pain (principal); R10.12 Left upper quadrant pain; N28.1 Cyst of kidney, acquired; I51.7 Cardiomegaly; R94.31 Abnormal electrocardiogram [ECG] [EKG]; I49.8 Other specified cardiac arrhythmias; I45.10 Unspecified right bundle-branch block; I10 Essential (primary) hypertension; K21.9 Gastro-esophageal reflux disease without esophagitis
CPT/HCPCS: 71010; 71275; 74174; 80053; 80307; 81001; 83690; 84484; 85025; 93005; 96361; 96374; 96375; 96376; 99285; C9113; J1885; J2270; J2405; J7030; Q9967

== ENCOUNTER 2017-08-28 16:11 | Emergency (ER) | payer SELFPAY ==
[~2017-08-28] VITALS: Ht 182.9 cm; Wt 120.0 kg
[~2017-08-28 16:11] MED LIST changes: +CARA1TAB6 PO; +DICY10 PO; -LISI10TA3 PO; +PANT40TA3 PO; +PERC7.5T13 PO; -SENN1TAB PO; -ZOFR4TAB3 SL
[2017-08-28 16:21] VITALS: BP 165/97; PULSE 78; RESP 24; TEMP 99.4; O2SAT 100
[2017-08-28] MEDS ORDERED: OMEP20TA93 PO (16:31)
[2017-08-28] MEDS ORDERED: SODIUM CHLOR 0.9% 1000 ML INJ 1,000 ML IV SCH (16:38)
[2017-08-28] MEDS ORDERED: ONDANSETRON HCL 4 MG/2 ML VIAL IVP ONE (16:45)
[2017-08-28] MEDS ORDERED: KETOROLAC TROMETHAMINE 30 MG/ML (IVP) VIAL IVP ONE (16:45)
[2017-08-28] MEDS ORDERED: SODIUM CHLORIDE 0.9% FLUSH 10 ML FLUSH IV FLUSH PRN (16:45)
[2017-08-28] MEDS ORDERED: MORPHINE SULFATE 2 MG/ML INJ IV PUSH ONE (17:00)
[2017-08-28 17:13] LABS: AUTOMATED NEUTROPHIL # 9.5 TH/MM3 (1.8-7.7); BASOPHIL # 0.1 TH/MM3 (0-0.2); BASOPHIL % 0.6 % (0.0-2.0); EOSINOPHIL % 0.1 % (0.0-4.0); HEMATOCRIT 40.6 % (39.0-51.0); HEMOGLOBIN 13.5 GM/DL (13.0-17.0); LYMPH % 11.5 % (9.0-44.0); LYMPHOCYTE # 1.3 TH/MM3 (1.0-4.8); MEAN CORPUSCULAR HEMOGLOBIN 30.7 PG (27.0-34.0); MEAN CORPUSCULAR HGB CONC 33.3 % (32.0-36.0); MEAN PLATELET VOLUME 8.5 FL (7.0-11.0); MONO % 5.9 % (0.0-8.0); MONOCYTE # 0.7 TH/MM3 (0-0.9); NEUT % 81.9 % (16.0-70.0); PLATELET COUNT 225 TH/MM3 (150-450); RED BLOOD COUNT 4.41 MIL/MM3 (4.50-5.90); RED CELL DISTRIBUTION WIDTH 12.9 % (11.6-17.2); WHITE BLOOD COUNT 11.6 TH/MM3 (4.0-11.0)
[2017-08-28 17:23] LABS: PROTHROMBIN TIME - PATIENT 10.5 SEC (9.8-11.6)
[2017-08-28 17:27] LABS: ALBUMIN 4.6 GM/DL (3.4-5.0); ALT (GPT) 23 U/L (12-78); AST (GOT) 19 U/L (15-37); BICARBONATE 20.4 MEQ/L (21.0-32.0); BLOOD UREA NITROGEN 15 MG/DL (7-18); CALCIUM 9.7 MG/DL (8.5-10.1); CHLORIDE 105 MEQ/L (98-107); CREATININE 1.23 MG/DL (0.60-1.30); GLOMERULAR FILTRATION RATE 81 ML/MIN (>89); GLUCOSE,RANDOM 143 MG/DL (74-106); LIPASE 86 U/L (73-393); SODIUM (NA) 138 MEQ/L (136-145)
[2017-08-28 17:29] LABS: ALKALINE PHOSPHATASE 57 U/L (45-117); TOTAL BILIRUBIN ADULT 0.6 MG/DL (0.2-1.0); TOTAL PROTEIN 9.2 GM/DL (6.4-8.2)
[2017-08-28] MEDS ORDERED: SODIUM CHLOR 0.9% 1000 ML INJ 1,000 ML IV ONE ×2 (17:45)
--- NOTE | 2017-08-28 17:58 | PD ---
HPI Chief Complaint: GI Complaint Time Seen by Provider: 16:45 Travel History International Travel<30 days: No Contact w/Intl Traveler<30days: No Traveled to known affect area: No History of Present Illness HPI 36-year-old male patient presents emergency department via EMS for evaluation of abdominal pain, nausea and vomiting that started this morning. Patient is actively retching but no vomiting is coming up. Patient states he was vomiting at home. He describes the vomiting as bilious. Patient denies any hematemesis. Patient denies any fevers, chills, malaise. Patient smells strongly of cannabis. Patient states he smoked quite a bit of cannabis over [place]. Patient states when this has happened in the past taking showers help however once it gets past a certain point showers no longer help. Patient states he took a shower this morning but still felt nauseated. Patient denies any other drug use outside of cannabis. PFSH Past Medical History Asthma: No Blood Disorders: No Heart Rhythm Problems: No Cancer: No Cardiac Catheterization: No Cardiovascular Problems: Yes (htn) High Cholesterol: No Chemotherapy: No Chest Pain: Yes Congestive Heart Failure: No COPD: No Diabetes: No Diminished Hearing: No Endocrine: No Gastrointestinal Disorders: No GERD: Yes Genitourinary: No Heparin Induced Thrombocytopen: No Hypertension: Yes Immune Disorder: No Implanted Vascular Access Dvce: No Musculoskeletal: No Neurologic: No Psychiatric: No Reproductive: No Respiratory: Yes (PNEUMONIA) Immunizations Current: No Radiation Therapy: No Sleep Apnea: No Thyroid Disease: No Influenza Vaccination: No Past Surgical History Surgical History: No Previous Surgery Coronary Artery Bypass Graft: No Other Surgery: No Social History Alcohol Use: Yes (socially) Tobacco Use: No (former) Substance Use: Yes (marijuana) Allergies-Medications (Allergen,Severity, Reaction): Coded Allergies: No Known Allergies (Verified Adverse Reaction, Unknown, 08/28/17) Reported Meds & Prescriptions Reported Meds & Active Scripts Active Reglan (Metoclopramide HCl) 10 Mg Tab 10 Mg PO QID PRN Bentyl (Dicyclomine HCl) 10 Mg Cap 10 Mg PO TID PRN Carafate (Sucralfate) 1 Gram Tab 1 Gm PO QID On empty stomach Amlodipine (Amlodipine Besylate) 10 Mg Tab 10 Mg PO DAILY Reported Omeprazole 20 Mg Tab Unknown Dose PO DAILY Percocet (Oxycodone-Acetaminophen) 7.5-325 mg Tab 1 Tab PO Q6H PRN Pantoprazole (Pantoprazole Sodium) 40 Mg Tab 40 Mg PO DAILY Review of Systems Except as stated in HPI: all other systems reviewed are Neg Physical Exam Narrative GENERAL: Well-nourished, well-developed 36-year-old male actively retching. Moderate distress. Smells strongly of cannabis. SKIN: Cool and clammy. HEAD: Atraumatic. Normocephalic. EYES: Pupils equal and round. No scleral icterus. No injection or drainage. . NECK: Trachea midline. No JVD. CARDIOVASCULAR: Regular rate and rhythm. No murmur appreciated. RESPIRATORY: No accessory muscle use. Clear to auscultation. Breath sounds equal bilaterally. GASTROINTESTINAL: Abdomen soft, non-tender, nondistended. Hepatic and splenic margins not palpable. MUSCULOSKELETAL: No obvious deformities. No clubbing. No cyanosis. No edema. NEUROLOGICAL: Awake and alert. No obvious cranial nerve deficits. Motor grossly within normal limits. Normal speech. Data Data Last Documented VS Vital Signs Date Time Temp Pulse Resp B/P (MAP) Pulse Ox O2 Delivery O2 Flow Rate FiO2 08/28/17 19:44 20 08/28/17 19:29 89 161/75 (103) 97 Room Air 08/28/17 16:21 99.4 Orders Orders Complete Blood Count With Diff (08/28/17 16:38) Comprehensive Metabolic Panel (08/28/17 16:38) Lipase (08/28/17 16:38) Lactic Acid (08/28/17 16:38) Prothrombin Time / Inr (Pt) (08/28/17 16:38) Act Partial Throm Time (Ptt) (08/28/17 16:38) Urinalysis - C+S If Indicated (08/28/17 16:38) Ct Abd/Pel W Iv Contrast(Rout) (08/28/17 16:38) Iv Access Insert/Monitor (08/28/17 16:38) Ecg Monitoring (08/28/17 16:38) Oximetry (08/28/17 16:38) Ondansetron Inj (Zofran Inj) (08/28/17 16:45) Sodium Chlor 0.9% 1000 Ml Inj (Ns 1000 M (1/1/18 16:38) Sodium Chloride 0.9% Flush (Ns Flush) (08/28/17 16:45) Electrocardiogram (08/28/17 16:38) Ketorolac Inj (Toradol Inj) (08/28/17 16:45) Morphine Inj (Morphine Inj) (08/28/17 17:00) Sodium Chlor 0.9% 1000 Ml Inj (Ns 1000 M (08/28/17 17:45) Sodium Chlor 0.9% 1000 Ml Inj (Ns 1000 M (08/28/17 17:45) Iohexol 350 Inj (Omnipaque 350 Inj) (08/28/17 18:21) Metoclopramide Inj (Reglan Inj) (08/28/17 18:30) Lactic Acid (08/28/17 19:50) Diphenhydramine Inj (Benadryl Inj) (08/28/17 19:30) Ckmb (Isoenzyme) Profile (08/28/17 16:50) Troponin I (08/28/17 16:50) CKMB (08/28/17 16:50) CKMB% (08/28/17 16:50) Ed Discharge Order (08/28/17 21:25) Labs Laboratory Tests Test 08/28/17 16:50 08/28/17 18:15 08/28/17 19:20 White Blood Count 11.6 TH/MM3 Red Blood Count 4.41 MIL/MM3 Hemoglobin 13.5 GM/DL Hematocrit 40.6 % Mean Corpuscular Volume 92.0 FL Mean Corpuscular Hemoglobin 30.7 PG Mean Corpuscular Hemoglobin Concent 33.3 % Red Cell Distribution Width 12.9 % Platelet Count 225 TH/MM3 Mean Platelet Volume 8.5 FL Neutrophils (%) (Auto) 81.9 % Lymphocytes (%) (Auto) 11.5 % Monocytes (%) (Auto) 5.9 % Eosinophils (%) (Auto) 0.1 % Basophils (%) (Auto) 0.6 % Neutrophils # (Auto) 9.5 TH/MM3 Lymphocytes # (Auto) 1.3 TH/MM3 Monocytes # (Auto) 0.7 TH/MM3 Eosinophils # (Auto) 0.0 TH/MM3 Basophils # (Auto) 0.1 TH/MM3 CBC Comment DIFF FINAL Differential Comment Prothrombin Time 10.5 SEC Prothromb Time International Ratio 1.0 RATIO Activated Partial Thromboplast Time 25.4 SEC Blood Urea Nitrogen 15 MG/DL Creatinine 1.23 MG/DL Random Glucose 143 MG/DL Total Protein 9.2 GM/DL Albumin 4.6 GM/DL Calcium Level 9.7 MG/DL Alkaline Phosphatase 57 U/L Aspartate Amino Transf (AST/SGOT) 19 U/L Alanine Aminotransferase (ALT/SGPT) 23 U/L Total Bilirubin 0.6 MG/DL Sodium Level 138 MEQ/L Potassium Level 3.3 MEQ/L Chloride Level 105 MEQ/L Carbon Dioxide Level 20.4 MEQ/L Anion Gap 13 MEQ/L Estimat Glomerular Filtration Rate 81 ML/MIN Lactic Acid Level 4.5 mmol/L 3.5 mmol/L Total Creatine Kinase 660 U/L Creatine Kinase MB 4.6 NG/ML Creatine Kinase MB % 0.7 % Troponin I LESS THAN 0.02 NG/ML Lipase 86 U/L Urine Color YELLOW Urine Turbidity CLEAR Urine pH 7.0 Urine Specific [place] 1.020 Urine Protein TRACE mg/dL Urine Glucose (UA) NEG mg/dL Urine Ketones 80 mg/dL Urine Occult Blood NEG Urine Nitrite NEG Urine Bilirubin NEG Urine Urobilinogen LESS THAN 2.0 MG/DL Urine Leukocyte Esterase NEG Urine Mucus FEW /lpf Microscopic Urinalysis Comment CULT NOT INDICATED MDM Medical Decision Making Medical Screen Exam Complete: Yes Emergency Medical Condition: Yes Differential Diagnosis Differential diagnoses include but are not limited to intractable nausea vomiting, hyperemesis cannabinoid, gastroenteritis Narrative Course Patient place a monitor and IV obtained, blood works in the lab. CBC, CMP, lactic acid, lipase, PT-INR, UA ordered and pending. Abdominal CT ordered and pending. 4 mg IV Zofran ordered. 1 L normal saline bolus ordered. Patient experienced some relief with a 4 mg IV Zofran with the retching continued after approximately 30 minutes of relief. 10 mg IV Reglan ordered with 50 mg Benadryl. Lactic acid resulted 4.5. 2 additional liters normal saline bolus ordered. Patient is requesting pain medication. 4 mg IV morphine ordered. Abdominal CT shows overall stable and benign examination not significantly change without any acute findings. Patient report significant relief in symptoms. Patient is well-appearing with no retching or nausea at this time. Patient is requesting Gatorade. Patient is given Gatorade and experienced no nausea or vomiting subsequently. Patient is discharged home with prescription for Reglan and instructions to avoid cannabis. Patient instructed to follow-up with his primary care return to emergency Department with any worsening conditions. Diagnosis Primary Impression: Vomiting Qualified Codes: G43.A0 - Cyclical vomiting, not intractable Referrals: Primary Care Physician Patient Instructions: Acute Nausea and Vomiting (ED), General Instructions Additional Instructions: Please return to emergency department if your symptoms return or worsen. Follow up with your primary care provider. Take medications as prescribed. Avoid marijuana use Med/Other Pt SpecificInfo: Prescription(s) given Scripts Metoclopramide (Reglan) 10 Mg Tab 10 MG PO QID Y for NAUSEA OR VOMITING, #15 TAB 0 Refills Prov: Chelo Montoya 08/28/17 Disposition: 01 DISCHARGE HOME Condition: Stable Chelo Montoya Aug 28, 2017 17:58
[2017-08-28] MEDS ORDERED: IOHEXOL 350 MG/ML 10 ML VIAL (for RAD DIAG) IVCONTRAST ONE (18:21)
[2017-08-28 18:25] VITALS: BP 187/101; PULSE 94; RESP 14; O2SAT 100
[2017-08-28] MEDS ORDERED: METOCLOPRAMIDE HCL 10 MG/2 ML VIAL IV PUSH ONE (18:30)
--- NOTE | 2017-08-28 18:32 | RADRPT ---
EXAM DATE/TIME: 08/28/2017 17:53 [facility] COMPARISON: CT ABDOMEN & PELVIS W CONTRAST, May 22, 2017, 18:31. INDICATIONS : Upper abdominal pain today. IV CONTRAST: 95 cc Omnipaque 350 (iohexol) IV ORAL CONTRAST: No oral contrast ingested. RADIATION DOSE: 17.73 CTDIvol (mGy) ; Patient body habitus; Patient positioning MEDICAL HISTORY : Hypertension. SURGICAL HISTORY : None. ENCOUNTER: Initial ACUITY: 1 day PAIN SCALE: 10/10 LOCATION: Bilateral upper quadrant TECHNIQUE: Volumetric scanning of the abdomen and pelvis was performed. Using automated exposure control and adjustment of the mA and/or kV according to patient size, radiation dose was kept as low as reasonably achievable to obtain optimal diagnostic quality images. DICOM format image data is av ailable electronically for review and comparison. FINDINGS: CT Abdomen: The spleen, pancreas, right kidney, adrenals are unremarkable. Approximate 1.4 cm simple cyst is present in the left kidney and the vague enhancing lesion of the left hepatic lobe has not ch anged. There is no evidence for any appreciable pathological adenopathy, free fluid, or bowel obstruc tion. CT pelvis: There is no evidence for mass, abscess formation, or any significant adenopathy within the pelvis. CONCLUSION: Overall stable and benign examination not significantly changed without any acute fin dings. Yobani Vanessa MD on August 28, 2017 at 18:25 Board Certified Radiologist. This report was verified electronically.
[2017-08-28 18:43] LABS: BILIRUBIN, URINE NEG (NEG); BLOOD, URINE NEG (NEG); GLUCOSE,URINE NEG (NEG); KETONE, URINE 80 mg/dL (NEG); MUCUS URINE FEW /lpf (OCC); NITRITE,URINE NEG (NEG); URINE COLOR YELLOW (YELLW/STRAW); URINE LEUKOCYTE ESTERASE NEG (NEG)
[2017-08-28 19:29] VITALS: BP 161/75; PULSE 89; RESP 20; O2SAT 97
[2017-08-28] MEDS ORDERED: diphenhydrAMINE HCL 50 MG/ML VIAL IM ONE (19:30)
[2017-08-28 19:44] VITALS: RESP 20
[2017-08-28 20:16] LABS: TROPONIN I LESS THAN 0.02 NG/ML (0.02-0.05)
[2017-08-28] MEDS ORDERED: REGL10TA5 PO (21:22)
[2017-08-28 21:45] VITALS: BP 136/76
--- NOTE | 2017-08-29 17:30 | EKG ---
Date Performed: 08/28/2017 Time Performed: 16:18:18 PTAGE: 36 years EKG: Sinus rhythm POSSIBLE LEFT ATRIAL ENLARGEMENT LEFT ANTERIOR FASCICULAR BLOCK LEFT VENTRICULAR HYPERTROPHY AND ST- T CHANGE PROBABLE LATERAL MYOCARDIAL INFARCTION ABNORMAL ECG INTERPRETATION BASED ON A DEFAULT AGE OF 41 YEARS PREVIOUS TRACING 07/26/2017 @20.35.35 Compared to prior tracing no significant change DOCTOR: Carmen Oh Interpretating Date/Time 08/29/2017 17:28:22
== END 2017-08-28 22:52 | disposition home or self-care (01) ==
LOC: NEPC 16:11
DX: R11.2 Nausea with vomiting, unspecified (principal); R10.9 Unspecified abdominal pain; I10 Essential (primary) hypertension; K21.9 Gastro-esophageal reflux disease without esophagitis; I44.4 Left anterior fascicular block; I51.7 Cardiomegaly; R94.31 Abnormal electrocardiogram [ECG] [EKG]; Z87.891 Personal history of nicotine dependence
CPT/HCPCS: 74177; 80053; 81001; 82550; 82552; 83605; 83690; 84484; 85025; 85610; 85730; 93005; 96372; 96374; 96375; 99285; J1200; J1885; J2270; J2405; J2765; J7030; Q9967

== ENCOUNTER 2017-10-01 09:50 | Observation (INO) | payer SELFPAY ==
[~2017-10-01] VITALS: Ht 182.9 cm; Wt 106.5 kg
[2017-10-01] VITALS (13 sets, daily range): BP systolic 159–216; BP diastolic 84–135; PULSE 63–89; RESP 17–38; TEMP 97.7–101.6; O2SAT 95–100
[~2017-10-01 09:50] MED LIST changes: +REGL10TA5 PO
[2017-10-01] MEDS ORDERED: ONDANSETRON HCL 4 MG/2 ML VIAL ONE (09:58)
[2017-10-01] MEDS ORDERED: ONDANSETRON HCL 4 MG/2 ML VIAL IV ONE ×2 (10:00→12:15)
[2017-10-01] MEDS ORDERED: SODIUM CHLOR 0.9% 1000 ML INJ 1,000 ML IV ONE ×2 (10:00→12:15)
[2017-10-01] MEDS ORDERED: diphenhydrAMINE HCL 50 MG/ML VIAL IV PUSH ONE (10:15)
[2017-10-01] MEDS ORDERED: PROCHLORPERAZINE INJ 10 MG/2 ML VIAL IV PUSH ONE (10:15)
[2017-10-01] MEDS ORDERED: KETAMINE HCL 500 MG/5 ML VIAL IV PUSH ONE ×2 (10:15→12:15)
[2017-10-01] MEDS ORDERED: FAMOTIDINE 20 MG/2 ML VIAL IV PUSH SCH (10:15)
--- NOTE | 2017-10-01 10:25 | PD ---
HPI Chief Complaint: Abdominal Pain Time Seen by Provider: 09:57 Travel History International Travel<30 days: No Contact w/Intl Traveler<30days: No Traveled to known affect area: No History of Present Illness HPI 37-year-old man, history of intermittent nausea vomiting abdominal pain, presents with severe nausea vomiting starting today. States symptoms are severe. History is a little bit limited due to active vomiting. No definite sick contacts. No diarrhea. Is going to severe pain throughout the upper abdomen. No blood in the vomit. No clear etiology from previous similar episodes. History Past Medical History Narrative Medical Cyclic nausea vomiting Social History Alcohol Use: Yes (socially) Tobacco Use: Yes (former) Allergies-Medications (Allergen,Severity, Reaction): Coded Allergies: No Known Allergies (Verified Adverse Reaction, Unknown, 08/28/17) Reported Meds & Prescriptions Reported Meds & Active Scripts Active Reglan (Metoclopramide HCl) 10 Mg Tab 10 Mg PO QID PRN Carafate (Sucralfate) 1 Gram Tab 1 Gm PO QID On empty stomach Amlodipine (Amlodipine Besylate) 10 Mg Tab 10 Mg PO DAILY Reported Omeprazole 20 Mg Tab Unknown Dose PO DAILY Pantoprazole (Pantoprazole Sodium) 40 Mg Tab 40 Mg PO DAILY Review of Systems ROS Limitations: Clinical Condition Physical Exam Narrative GENERAL: 37-year-old man, uncomfortable, diaphoretic, nausea vomiting. SKIN: Diaphoretic. HEAD: Atraumatic. Normocephalic. EYES: Pupils equal and round. No scleral icterus. No injection or drainage. ENT: No nasal bleeding or discharge. Mucous membranes pink and moist. NECK: Trachea midline. No JVD. CARDIOVASCULAR: Regular rate and rhythm. No murmur appreciated. RESPIRATORY: No accessory muscle use. Clear to auscultation. Breath sounds equal bilaterally. GASTROINTESTINAL: Abdomen soft, moderate guarding, moderate diffuse tenderness. No rebound. MUSCULOSKELETAL: No obvious deformities. No clubbing. No cyanosis. No edema. NEUROLOGICAL: Awake and alert. No obvious cranial nerve deficits. Motor grossly within normal limits. Normal speech. PSYCHIATRIC: Appropriate mood and affect; insight and judgment normal. Data Data Last Documented VS Vital Signs Date Time Temp Pulse Resp B/P (MAP) Pulse Ox O2 Delivery O2 Flow Rate FiO2 10/01/17 12:15 68 20 180/96 (124) 98 Room Air 10/01/17 10:00 98.6 Orders Orders Complete Blood Count With Diff (10/01/17 09:57) Comprehensive Metabolic Panel (10/01/17 09:57) Lipase (10/01/17 09:57) Sodium Chlor 0.9% 1000 Ml Inj (Ns 1000 M (10/01/17 10:00) Ondansetron Inj (Zofran Inj) (10/01/17 10:00) Iv Access Insert/Monitor (10/01/17 09:57) Ondansetron Inj (Zofran Inj) (10/01/17 09:58) Famotidine Inj (Pepcid Inj) (10/01/17 10:15) Prochlorperazine Inj (Compazine Inj) (10/01/17 10:15) Diphenhydramine Inj (Benadryl Inj) (10/01/17 10:15) Ketamine Inj (Ketalar Inj) (10/01/17 10:15) Labetalol Inj (Trandate Inj) (10/01/17 10:30) Amlodipine (Norvasc) (10/01/17 11:30) Dicyclomine (Bentyl) (10/01/17 11:30) Ondansetron Inj (Zofran Inj) (10/01/17 12:15) Sodium Chlor 0.9% 1000 Ml Inj (Ns 1000 M (10/01/17 12:15) Ketamine Inj (Ketalar Inj) (10/01/17 12:15) Lorazepam Inj (Ativan Inj) (10/01/17 12:45) Acetaminophen 1000 Mg/100 Ml (Ofirmev 10 (10/01/17 12:45) Admit Order (Ed Use Only) (10/01/17 ) Labs Laboratory Tests Test 10/01/17 10:00 White Blood Count 6.3 TH/MM3 Red Blood Count 4.61 MIL/MM3 Hemoglobin 14.8 GM/DL Hematocrit 40.9 % Mean Corpuscular Volume 88.8 FL Mean Corpuscular Hemoglobin 32.0 PG Mean Corpuscular Hemoglobin Concent 36.1 % Red Cell Distribution Width 13.4 % Platelet Count 213 TH/MM3 Mean Platelet Volume 8.3 FL Neutrophils (%) (Auto) 53.6 % Lymphocytes (%) (Auto) 35.2 % Monocytes (%) (Auto) 8.0 % Eosinophils (%) (Auto) 2.0 % Basophils (%) (Auto) 1.2 % Neutrophils # (Auto) 3.4 TH/MM3 Lymphocytes # (Auto) 2.2 TH/MM3 Monocytes # (Auto) 0.5 TH/MM3 Eosinophils # (Auto) 0.1 TH/MM3 Basophils # (Auto) 0.1 TH/MM3 CBC Comment AUTO DIFF Differential Comment AUTO DIFF CONFIRMED Platelet Estimate NORMAL Platelet Morphology Comment NORMAL Red Cell Morphology Comment NORMAL Blood Urea Nitrogen 14 MG/DL Creatinine 1.05 MG/DL Random Glucose 124 MG/DL Total Protein 8.6 GM/DL Albumin 4.4 GM/DL Calcium Level 9.4 MG/DL Alkaline Phosphatase 57 U/L Aspartate Amino Transf (AST/SGOT) 18 U/L Alanine Aminotransferase (ALT/SGPT) 19 U/L Total Bilirubin 0.4 MG/DL Sodium Level 141 MEQ/L Potassium Level 3.6 MEQ/L Chloride Level 108 MEQ/L Carbon Dioxide Level 21.5 MEQ/L Anion Gap 12 MEQ/L Estimat Glomerular Filtration Rate 97 ML/MIN Lipase 138 U/L [facility] Medical Decision Making Medical Screen Exam Complete: Yes Emergency Medical Condition: Yes Interpretation(s) LABS: LABS: CBC is unremarkable. CMP is unremarkable. Lipase is normal. Differential Diagnosis Marijuana hyperemesis syndrome, cyclic vomiting, gastritis, gastroenteritis, other Narrative Course Medical decision making 37-year-old man, recurrent episodes nausea vomiting abdominal pain, strongly suspicious for marijuana hyperemesis syndrome. Reviewed multiple CT scans, 4 in the past year, one last month. Patient looks uncomfortable, diaphoretic. Asking for her blood pressure medicine and pain medicine. I told him that I did not think we should use opiates to manage his recurrent episodes of nausea vomiting abdominal pain. Will try antiemetics, will do some dissociative ketamine, reassess. FINAL call patient with persistent symptoms despite antiemetics, multiple doses of typical and atypical pain medications including sub-dissociative dose ketamine, patient is diaphoretic. We will continue to avoid parenteral opiates for chronic recurrent abdominal pain. Will admit to the inpatient team, continue symptomatic management. Diagnosis Primary Impression: Cannabinoid hyperemesis syndrome Additional Impressions: Intractable nausea and vomiting Intractable abdominal pain Ney Quintero MD Oct 01, 2017 10:25
[2017-10-01 10:29] LABS: AUTOMATED NEUTROPHIL # 3.4 TH/MM3 (1.8-7.7); BASOPHIL # 0.1 TH/MM3 (0-0.2); BASOPHIL % 1.2 % (0.0-2.0); EOSINOPHIL # 0.1 TH/MM3 (0-0.4); HEMATOCRIT 40.9 % (39.0-51.0); HEMOGLOBIN 14.8 GM/DL (13.0-17.0); LYMPH % 35.2 % (9.0-44.0); LYMPHOCYTE # 2.2 TH/MM3 (1.0-4.8); MEAN CELL VOLUME 88.8 FL (80.0-100.0); MEAN PLATELET VOLUME 8.3 FL (7.0-11.0); MONOCYTE # 0.5 TH/MM3 (0-0.9); NEUT % 53.6 % (16.0-70.0); PLATELET COUNT 213 TH/MM3 (150-450); RED BLOOD COUNT 4.61 MIL/MM3 (4.50-5.90); RED CELL DISTRIBUTION WIDTH 13.4 % (11.6-17.2); WHITE BLOOD COUNT 6.3 TH/MM3 (4.0-11.0)
[2017-10-01] MEDS ORDERED: LABETALOL HCL 100 MG/20 ML VIAL IV PUSH ONE (10:30)
[2017-10-01 10:31] LABS: MEAN CORPUSCULAR HGB CONC 36.1 % (32.0-36.0)
[2017-10-01 10:42] LABS: ALBUMIN 4.4 GM/DL (3.4-5.0); ALT (GPT) 19 U/L (12-78); AST (GOT) 18 U/L (15-37); BICARBONATE 21.5 MEQ/L (21.0-32.0); BLOOD UREA NITROGEN 14 MG/DL (7-18); CALCIUM 9.4 MG/DL (8.5-10.1); CHLORIDE 108 MEQ/L (98-107); CREATININE 1.05 MG/DL (0.60-1.30); GLOMERULAR FILTRATION RATE 97 ML/MIN (>89); GLUCOSE,RANDOM 124 MG/DL (74-106); SODIUM (NA) 141 MEQ/L (136-145)
[2017-10-01 10:44] LABS: ALKALINE PHOSPHATASE 57 U/L (45-117); TOTAL BILIRUBIN ADULT 0.4 MG/DL (0.2-1.0); TOTAL PROTEIN 8.6 GM/DL (6.4-8.2)
[2017-10-01] MEDS ORDERED: DICYCLOMINE HCL 10 MG CAP PO ONE (11:30)
[2017-10-01] MEDS ORDERED: ACETAMINOPHEN 1000 MG/100 ML 100 ML IV ONE (12:45)
[2017-10-01] MEDS ORDERED: LORazepam 2 MG/ML VIAL IV PUSH ONE (12:45)
--- NOTE | 2017-10-01 13:38 | HHI.HP ---
HPI Service Family Medicine Primary Care Physician No Primary Care Physician Admission Diagnosis Abdominal pain, nausea vomiting Diagnoses: International Travel<30 Days: No Contact w/Intl Traveler<30days: No Known Affected Area: No History of Present Illness 37 yo M awoke this morning with belly pain and burning in his chest. Vomited 11 times (brownish green, no obvious blood). Chest pain shoots to L chest wall, not to arm/back/neck. Was in normal state of health yesterday. Patient states that he uses Nichole root and lemon/honey twice a week for symptom relief as this happens often - patient feels this helps. Fever/chills this morning. Rhinorrhea, productive cough (green/brown) started this morning. Patient is seen in the ED frequently with complaints of abdominal pain, vomiting. No known sick contacts. (Baldomero Isaacs MD R1) Review of Systems Constitutional: COMPLAINS OF: Fever, Chills Eyes: COMPLAINS OF: Blurred vision Ears, nose, mouth, throat: COMPLAINS OF: Running Nose, DENIES: Throat pain Respiratory: COMPLAINS OF: Cough, Sputum production, DENIES: Wheezing, Shortness of breath Cardiovascular: COMPLAINS OF: Chest pain, DENIES: Palpitations Gastrointestinal: COMPLAINS OF: Abdominal pain, Diarrhea (3 times today), Nausea, Vomiting, DENIES: Black stools, Bloody stools Genitourinary: DENIES: Dysuria Integumentary: DENIES: Rash Hematologic/lymphatic: DENIES: Lymphadenopathy Neurologic: COMPLAINS OF: Headache (Baldomero Isaacs MD R1) Past Family Social History Past Medical History HTN Chronic episodic emesis Past Surgical History None (Baldomero Isaacs MD R1) Allergies: Coded Allergies: No Known Allergies (Verified Adverse Reaction, Unknown, 08/28/17) Family History None Social History Lives at home, mother grandfather Seldom alcohol use (last night most recent) Smokes 1/2 ppd for starting at 29 years of age Marijuana 4 joints per day (since age 19), no other illicit drugs (Baldomero Isaacs MD R1) Physical Exam Vital Signs Vital Signs Date Time Temp Pulse Resp B/P (MAP) Pulse Ox O2 Delivery O2 Flow Rate FiO2 10/01/17 13:25 71 18 196/101 (132) 95 Room Air 10/01/17 12:15 68 20 180/96 (124) 98 Room Air 10/01/17 11:30 74 18 216/108 (144) 99 Room Air 10/01/17 10:54 63 25 208/120 (149) 100 Room Air 10/01/17 10:47 69 26 196/114 (141) 100 Room Air 10/01/17 10:22 76 25 159/84 (109) 100 Room Air 10/01/17 10:00 81 26 201/129 (153) 100 Room Air 10/01/17 10:00 98.6 76 28 201/129 (153) 100 10/01/17 09:50 97.7 88 38 186/135 (152) 100 Physical Exam GENERAL: This is a well-nourished, well-developed patient sitting upright in bed , falling asleep throughout the interview. SKIN: No rashes, ecchymoses or lesions. Cool and dry. HEAD: Atraumatic. Normocephalic. No temporal or scalp tenderness. EYES: Pupils equal round and reactive. Extraocular motions intact. No scleral icterus. No injection or drainage. ENT: Nose without bleeding, purulent drainage or septal hematoma. Throat without erythema, tonsillar hypertrophy or exudate. Uvula midline. Airway patent. NECK: Trachea midline. No JVD or lymphadenopathy. Supple, nontender, no meningeal signs. CARDIOVASCULAR: Regular rate and rhythm without murmurs, gallops, or rubs. RESPIRATORY: Clear to auscultation. Breath sounds equal bilaterally. No wheezes , rales, or rhonchi. GASTROINTESTINAL: Abdomen soft, non-tender, nondistended. No hepato-splenomegaly , or palpable masses. No guarding. MUSCULOSKELETAL: Extremities without clubbing, cyanosis, or edema. No joint tenderness, effusion, or edema noted. No calf tenderness. Negative Homans sign bilaterally. NEUROLOGICAL: Awake and alert. Cranial nerves II through XII intact. Motor and sensory grossly within normal limits. Five out of 5 muscle strength in all muscle groups. Normal speech. Laboratory Laboratory Tests Test 10/01/17 10:00 White Blood Count 6.3 Red Blood Count 4.61 Hemoglobin 14.8 Hematocrit 40.9 Mean Corpuscular Volume 88.8 Mean Corpuscular Hemoglobin 32.0 Mean Corpuscular Hemoglobin Concent 36.1 Red Cell Distribution Width 13.4 Platelet Count 213 Mean Platelet Volume 8.3 Neutrophils (%) (Auto) 53.6 Lymphocytes (%) (Auto) 35.2 Monocytes (%) (Auto) 8.0 Eosinophils (%) (Auto) 2.0 Basophils (%) (Auto) 1.2 Neutrophils # (Auto) 3.4 Lymphocytes # (Auto) 2.2 Monocytes # (Auto) 0.5 Eosinophils # (Auto) 0.1 Basophils # (Auto) 0.1 CBC Comment AUTO DIFF Differential Comment AUTO DIFF CONFIRMED Platelet Estimate NORMAL Platelet Morphology Comment NORMAL Red Cell Morphology Comment NORMAL Blood Urea Nitrogen 14 Creatinine 1.05 Random Glucose 124 Total Protein 8.6 Albumin 4.4 Calcium Level 9.4 Alkaline Phosphatase 57 Aspartate Amino Transf (AST/SGOT) 18 Alanine Aminotransferase (ALT/SGPT) 19 Total Bilirubin 0.4 Sodium Level 141 Potassium Level 3.6 Chloride Level 108 Carbon Dioxide Level 21.5 Anion Gap 12 Estimat Glomerular Filtration Rate 97 Lipase 138 (Baldomero Isaacs MD R1) Result Diagram: 10/01/17 1000 10/01/17 1000 Caprini VTE Risk Assessment Caprini VTE Risk Assessment: No/Low Risk (score <= 1) (Baldomero Isaacs MD R1) Assessment and Plan Assessment and Plan 37-year-old male presenting to the ED with abdominal pain and multiple episodes of emesis. Has been seen in the ED often with similar complaints. Treated with Zofran, IV fluids, Bentyl, ketamine 2, and Ativan 1 prior to admission. Code Status Full code Discussed Condition With Dr. Merlos (Baldomero Isaacs MD R1) Attending Attestation Patient seen, examined, and discussed with resident team. I agree with assessment and management as documented and discussed with me. Abelardo Grande is a 37 yo gentleman with history significant for frequent admissions for abdominal pain / atypical chest pain admitted for recurrent symptoms after continuing with heavy marijuana use. Of note, he had run out of his medications (PPI and amlodipine) at least 1 month prior to admission. He and his girlfriend report that his BP normally runs 150s-160s/90s. (Tiffanie Merlos MD) Problem List: (1) Cannabinoid hyperemesis syndrome ICD Codes: F12.988 - Cannabis use, unspecified with other cannabis-induced disorder Status: Acute Plan: Known history of heavy marijuana use (4 joints per day) Has been seen in the ED/hospitalized multiple times for abdominal pain and vomiting Electrolytes within normal limits on admission Treated with Zofran, IV fluids, Bentyl, ketamine 2, and Ativan 1 in the ED IV fluids normal saline plus potassium at 100 mL per hour Ativan 1 mg as needed for abdominal pain 1 time dose of Haldol if intractable pain Liquid diet Protonix 40 mg by mouth daily Ofirmev IV every 6 hours scheduled (2) Abdominal pain ICD Codes: R10.9 - Unspecified abdominal pain Status: Resolved Plan: Abdominal pain improved from presentation to the ED See workup as above (3) HTN (hypertension) ICD Codes: I10 - Essential (primary) hypertension Status: Chronic Plan: Patient with a known history of hypertension Blood pressure elevated in the ED to the 200s systolic over 100s diastolic Continuing home amlodipine 10 mg daily Given 1 dose of Vasotec 1.25 mg IV after systolic over 177 over 105 -- > blood pressure actually increased to 183/113 Bring clonidine 0.1 mg as needed for blood pressure greater than 180 systolic, diastolic over 110 (4) FEN Status: Acute Plan: IVF: Normal saline plus potassium chloride 20 mEq at 100 mL per hour Electrolytes within normal limits on admission, replace as needed Liquid diet SCDs for DVT prophylaxis (Baldomero Isaacs MD R1) Problem Qualifiers (1) Abdominal pain: Qualified Codes: R10.84 - Generalized abdominal pain (2) HTN (hypertension): Qualified Codes: I10 - Essential (primary) hypertension Baldomero Isaacs MD R1 Oct 01, 2017 13:38 Tiffanie Merlos MD Oct 02, 2017 16:28
[2017-10-01] MEDS ORDERED: LORazepam 2 MG/ML VIAL IV PUSH PRN (14:15)
[2017-10-01] MEDS ORDERED: SODIUM CHLORIDE 0.9% FLUSH 10 ML FLUSH IV FLUSH PRN (14:15)
[2017-10-01] MEDS: NS + KCL 20 MEQ INJ 1,000 ML IV SCH (15:01)
[2017-10-01] MEDS: ENALAPRILAT 1.25 MG/ML VIAL IV PUSH PRN ×2 (15:08→21:10)
[2017-10-01] MEDS ORDERED: cloNIDine HCL 0.1 MG TAB PO PRN (18:00)
[2017-10-01] MEDS ORDERED: ONDANSETRON HCL 4 MG/2 ML VIAL IV PUSH PRN (18:00)
[2017-10-01] MEDS: SODIUM CHLORIDE 0.9% FLUSH 10 ML FLUSH IV FLUSH SCH (19:08)
[2017-10-01] MEDS: ACETAMINOPHEN 1000 MG/100 ML 100 ML IV SCH (19:15)
[2017-10-01] MEDS: METOPROLOL TARTRATE 25 MG TAB PO SCH (21:00)
[2017-10-01] MEDS ORDERED: hydrALAZINE HCL 20 MG/ML VIAL IV PUSH PRN (23:45)
[2017-10-02] VITALS (11 sets, daily range): BP systolic 139–176; BP diastolic 78–127; PULSE 60–88; RESP 0–20; TEMP 98.3–100.4; O2SAT 96–100
[2017-10-02] MEDS ORDERED: cloNIDine HCL 0.1 MG TAB PO PRN
[2017-10-02] MEDS ORDERED: CHLORHEXIDINE GLUCONATE 2 % 1 PACK (2 CLOTHS)(extra cloths) TOPICAL PRN (00:45)
[2017-10-02] MEDS: ACETAMINOPHEN 1000 MG/100 ML 100 ML IV SCH ×2 (02:00→08:01)
[2017-10-02] MEDS ORDERED: CHLORHEXIDINE GLUCONATE 2 % 1 PACK (2 CLOTHS)(taper/protocol) TOPICAL SCH (04:00)
[2017-10-02 05:02] LABS: AUTOMATED NEUTROPHIL # 6.4 TH/MM3 (1.8-7.7); BASOPHIL % 0.4 % (0.0-2.0); HEMATOCRIT 39.9 % (39.0-51.0); HEMOGLOBIN 13.3 GM/DL (13.0-17.0); LYMPH % 20.3 % (9.0-44.0); LYMPHOCYTE # 1.8 TH/MM3 (1.0-4.8); MEAN CELL VOLUME 90.4 FL (80.0-100.0); MEAN CORPUSCULAR HEMOGLOBIN 30.3 PG (27.0-34.0); MEAN CORPUSCULAR HGB CONC 33.5 % (32.0-36.0); MEAN PLATELET VOLUME 8.3 FL (7.0-11.0); MONO % 9.5 % (0.0-8.0); MONOCYTE # 0.9 TH/MM3 (0-0.9); NEUT % 69.8 % (16.0-70.0); PLATELET COUNT 204 TH/MM3 (150-450); RED BLOOD COUNT 4.41 MIL/MM3 (4.50-5.90); RED CELL DISTRIBUTION WIDTH 13.8 % (11.6-17.2); WHITE BLOOD COUNT 9.1 TH/MM3 (4.0-11.0)
[2017-10-02 05:25] LABS: ALT (GPT) 15 U/L (12-78); AST (GOT) 7 U/L (15-37); BICARBONATE 28.6 MEQ/L (21.0-32.0); BLOOD UREA NITROGEN 8 MG/DL (7-18); CALCIUM 9.1 MG/DL (8.5-10.1); CHLORIDE 102 MEQ/L (98-107); CREATININE 0.86 MG/DL (0.60-1.30); GLOMERULAR FILTRATION RATE 122 ML/MIN (>89); GLUCOSE,RANDOM 116 MG/DL (74-106); SODIUM (NA) 137 MEQ/L (136-145)
[2017-10-02 05:28] LABS: ALKALINE PHOSPHATASE 52 U/L (45-117); TOTAL BILIRUBIN ADULT 0.9 MG/DL (0.2-1.0); TOTAL PROTEIN 8.1 GM/DL (6.4-8.2)
[2017-10-02] MEDS: METOPROLOL TARTRATE 25 MG TAB PO SCH (07:59)
[2017-10-02] MEDS ORDERED: POTASSIUM CHLORIDE 20 MEQ CONTROLLED RELEASE TAB PO ONE (08:00)
[2017-10-02] MEDS: SODIUM CHLORIDE 0.9% FLUSH 10 ML FLUSH IV FLUSH SCH (08:02)
[2017-10-02] MEDS: NS + KCL 20 MEQ INJ 1,000 ML IV SCH (08:02)
[2017-10-02] MEDS ORDERED: PANTOPRAZOLE SOD 40 MG DELAYED RELEASE TAB PO SCH (09:00)
[2017-10-02 09:30] LABS: BILIRUBIN, URINE NEG (NEG); BLOOD, URINE NEG (NEG); GLUCOSE,URINE NEG (NEG); KETONE, URINE NEG (NEG); NITRITE,URINE NEG (NEG); PH, URINE 6.5 (5.0-8.5); URINE COLOR LIGHT-YELLOW (YELLW/STRAW); URINE LEUKOCYTE ESTERASE NEG (NEG)
[2017-10-02] MEDS ORDERED: HYDROCHLOROTHIAZIDE 25 MG TAB PO SCH (10:00)
--- NOTE | 2017-10-02 12:21 | HHI.FPPN ---
Subjective Remarks Patient febrile to 101.6 overnight. His emesis has resolved. He continues to have some abdominal discomfort but denies any chest pain, shortness of breath, fever, chills, or nausea. His last bowel movement was yesterday. Blood pressure is currently ranging 150-170s/80-100s. Patient notes that his baseline is in the 150s systolic. (Tootie Benton MD, R3) Objective Vitals Vital Signs Date Time Temp Pulse Resp B/P (MAP) Pulse Ox O2 Delivery O2 Flow Rate FiO2 10/02/17 10:00 79 10/02/17 09:06 76 17 159/105 (123) 99 10/02/17 08:32 18 10/02/17 08:00 98.6 71 16 154/92 (112) 100 10/02/17 08:00 71 10/02/17 07:00 88 13 171/107 (128) 97 10/02/17 06:00 60 18 163/81 (108) 96 10/02/17 06:00 63 10/02/17 05:00 63 0 142/78 (99) 96 10/02/17 04:00 60 10/02/17 04:00 98.3 67 11 139/91 (107) 99 10/02/17 02:00 63 10/02/17 00:28 98.9 64 16 142/84 (103) 97 10/02/17 00:02 100.4 69 20 176/127 (143) 98 10/01/17 21:59 100.7 75 20 190/109 (136) 98 10/01/17 20:00 101.6 89 20 201/121 (147) 97 198/122 (147) 10/01/17 16:31 73 183/113 (136) 10/01/17 16:00 99.5 63 17 177/105 (129) 97 10/01/17 14:44 72 25 176/101 (126) 100 10/01/17 13:25 71 18 196/101 (132) 95 Room Air 10/01/17 12:15 68 20 180/96 (124) 98 Room Air I/O 10/01/17 10/01/17 10/01/17 10/02/17 10/02/17 10/02/17 07:00 15:00 23:00 07:00 15:00 23:00 Intake Total 2100 ml 345 ml 700 ml 1195 ml Output Total 700 ml 1450 ml Balance 2100 ml 345 ml 0 ml -255 ml Intake Oral 0 ml 700 ml IV Total 2100 ml 345 ml 1195 ml Output Urine Total 700 ml 1450 ml # Voids 1 # Bowel Movements 0 0 (Tootie Benton MD, R3) Result Diagram: 10/02/1735710/02/17357 Objective Remarks GENERAL: Well-nourished, well-developed male patient in no acute distress. SKIN: Warm and dry. No rashes or lesions present. EYES: No scleral icterus. No conjunctival injection or drainage. Pupils equal, round, reactive to light and accommodation. Extraocular movements intact. THROAT: Moist mucous membranes. NECK: Supple, trachea midline. CARDIOVASCULAR: Regular rate and rhythm without murmurs, gallops, or rubs. Strong radial and pedal pulses. CHEST: Symmetric chest expansion with respiration. RESPIRATORY: Breath sounds clear to auscultation bilaterally. No accessory muscle use. No wheezes, rhonchi or rales. GASTROINTESTINAL: Abdomen soft, non-tender, nondistended. No masses or hernias. No hepatosplenomegaly. Bowel sounds present. MUSCULOSKELETAL: No cyanosis or edema. No nail changes. NEURO: Cranial nerves II through XII grossly intact. Good muscle tone. PSYCH: Normal mood and affect. Good eye contact. Normal speech. (Tootie Benton MD, R3) A/P Assessment and Plan 37-year-old male who presented with abdominal pain and multiple episodes of emesis admitted for cannabinoid hyperemesis syndrome and hypertensive urgency. Discharge Planning Anticipate discharge home today or tomorrow. (Tootie Benton MD, R3) Attending Attestation Patient seen, examined, and discussed with resident team. I agree with assessment and management as documented and discussed with me. Pain is improved. No further vomiting. Discharge home today if BP remains stable. Discussed goal BP with patient. (Tiffanie Merlos MD) Problem List: (1) Hypertensive urgency ICD Codes: I16.0 - Hypertensive urgency Status: Resolved Plan: Blood pressure as high as 216/108 overnight BP now improved and ranging in the 150s/90-100s s/p Clonidine, Vasotec, and Metoprolol overnight TSH wnl Continue Metoprolol 25mg PO BID and Amlodipine 10mg PO daily Start HCTZ 25mg PO daily (2) Cannabinoid hyperemesis syndrome ICD Codes: F12.988 - Cannabis use, unspecified with other cannabis-induced disorder Status: Acute Plan: Known history of heavy marijuana use (4 joints per day) Has been seen in the ED/hospitalized multiple times for abdominal pain and vomiting Treated with Zofran, IV fluids, Bentyl, ketamine 2, and Ativan 1 in the ED UDS positive for cannabinoids IV fluids NS + KCl at 150 mL per hour Ativan 1 mg as needed for abdominal pain 1 time dose of Haldol if intractable pain Liquid diet Protonix 40 mg by mouth daily Tylenol Q6H PRN pain Counseling provided today regarding abstinence from cannabinoids (3) Fever ICD Codes: R50.9 - Fever, unspecified Status: Acute Plan: Febrile to 101.6 overnight UA negative No leukocytosis Influenza negative Will evaluate further with blood cultures and respiratory panel (4) Abdominal pain ICD Codes: R10.9 - Unspecified abdominal pain Status: Resolved Plan: Continue Protonix 40mg PO daily Avoid Cannabinoids (5) HTN (hypertension) ICD Codes: I10 - Essential (primary) hypertension Status: Chronic Plan: Patient with a known history of hypertension See hypertensive urgency above (6) FEN Status: Acute Plan: IVF: NS + KCl 20 mEq at 150 mL per hour Electrolytes: Hypokalemia of 3.2 today, replete with KCl, continue to monitor Nutrition: Liquid diet SCDs for DVT prophylaxis (Tootie Benton MD, R3) Problem Qualifiers (1) Fever: Qualified Codes: R50.9 - Fever, unspecified (2) Abdominal pain: Qualified Codes: R10.84 - Generalized abdominal pain (3) HTN (hypertension): Qualified Codes: I10 - Essential (primary) hypertension Tootie Benton MD, R3 Oct 02, 2017 12:21 Tiffanie Merlos MD Oct 02, 2017 16:50
[2017-10-02] MEDS ORDERED: ACETAMINOPHEN 325 MG TAB PO PRN (13:00)
[2017-10-02] MEDS ORDERED: ZOFR4TAB PO (13:44)
[2017-10-02] MEDS ORDERED: HYDR25TA5 PO (13:44)
[2017-10-02] MEDS ORDERED: AMLO10TA2 PO (13:44)
[2017-10-02] MEDS ORDERED: ZANT150T2 PO (13:44)
--- NOTE | 2017-10-02 13:44 | HHI.DCPOC ---
Discharge Care Plan Diagnosis: (1) Cannabinoid hyperemesis syndrome (2) HTN (hypertension) (3) Abdominal pain Goals to Promote Your Health * To prevent worsening of your condition and complications * To maintain your health at the optimal level Directions to Meet Your Goals Take your medications as prescribed Follow your dietary instruction Follow activity as directed Keep your appointments as scheduled Take your immunizations and boosters as scheduled If your symptoms worsen call your PCP, if no PCP go to Urgent Care Center or Emergency Room Smoking is Dangerous to Your Health. Avoid second hand smoke Call the 24-hour hour crisis hotline for domestic abuse at Baldomero Isaacs MD R1 Oct 02, 2017 13:44
[2017-10-03] MEDS ORDERED: REGL10TA5 PO (07:35)
== END 2017-10-02 16:52 | disposition home or self-care (01) ==
LOC: NEPE 09:50 → NEDA 13:05 → UNDOADMIN 13:05 → INTOOBSV 14:10 → NEDA 14:10 → N07B 14:40 → NEDA 14:40 → HIMN 10-02 00:25 → N07B 10-02 00:25 → HIMN 10-02 10:45 → N05B 10-02 10:45
PROVIDERS: ADMIT Family Medicine; ATTEND Family Medicine
DX: T40.7X5A Adverse effect of cannabis (derivatives), initial encounter (principal); R10.84 Generalized abdominal pain; R11.2 Nausea with vomiting, unspecified; R07.9 Chest pain, unspecified; R05 Cough; R50.9 Fever, unspecified; R61 Generalized hyperhidrosis; E87.6 Hypokalemia; I10 Essential (primary) hypertension; I16.0 Hypertensive urgency; F17.200 Nicotine dependence, unspecified, uncomplicated; Z87.891 Personal history of nicotine dependence; Z79.899 Other long term (current) drug therapy
CPT/HCPCS: 80053; 80307; 81001; 83690; 84443; 85025; 87040; 87641; 87804; 96361; 96374; 96375; 96376; 99285; G0378; J0131; J0780; J1200; J2060; J2405; J3480; J7030

== ENCOUNTER 2017-10-03 05:14 | Emergency (ER) | payer SELFPAY ==
[~2017-10-03] VITALS: Ht 185.4 cm; Wt 95.0 kg
[~2017-10-03 05:14] MED LIST changes: -DICY10 PO; +HYDR25TA5 PO; -OMEP20TA93 PO; -PANT40TA3 PO; -PERC7.5T13 PO; +ZANT150T2 PO; +ZOFR4TAB PO
[2017-10-03 05:23] VITALS: BP 139/83; PULSE 76; RESP 18; TEMP 98.5; O2SAT 100
[2017-10-03] MEDS ORDERED: HALOPERIDOL LACTATE 5 MG/ML AMP IM ONE (05:30)
[2017-10-03] MEDS ORDERED: diphenhydrAMINE HCL 50 MG/ML VIAL IV PUSH ONE (05:30)
[2017-10-03] MEDS ORDERED: ALUMINUM/MAGNESIUM/SIMETH 30 ML CUP PO ONE ×2 (05:30→09:15)
[2017-10-03] MEDS ORDERED: LIDOCAINE VISCOUS 2% SOLN 15 ML UDC PO ONE ×2 (05:30→09:15)
[2017-10-03] MEDS ORDERED: SODIUM CHLORIDE 0.9% FLUSH 10 ML FLUSH IV FLUSH PRN ×2 (05:30→09:15)
[2017-10-03 05:54] LABS: AUTOMATED NEUTROPHIL # 2.9 TH/MM3 (1.8-7.7); BASOPHIL # 0.1 TH/MM3 (0-0.2); BASOPHIL % 1.2 % (0.0-2.0); EOSINOPHIL # 0.1 TH/MM3 (0-0.4); EOSINOPHIL % 1.5 % (0.0-4.0); HEMATOCRIT 43.7 % (39.0-51.0); HEMOGLOBIN 14.9 GM/DL (13.0-17.0); MEAN CELL VOLUME 89.2 FL (80.0-100.0); MEAN CORPUSCULAR HEMOGLOBIN 30.4 PG (27.0-34.0); MEAN CORPUSCULAR HGB CONC 34.1 % (32.0-36.0); MEAN PLATELET VOLUME 8.3 FL (7.0-11.0); MONOCYTE # 0.6 TH/MM3 (0-0.9); NEUT % 51.3 % (16.0-70.0); PLATELET COUNT 236 TH/MM3 (150-450); RED CELL DISTRIBUTION WIDTH 13.6 % (11.6-17.2); WHITE BLOOD COUNT 5.7 TH/MM3 (4.0-11.0)
[2017-10-03 06:25] LABS: ALBUMIN 4.6 GM/DL (3.4-5.0); ALKALINE PHOSPHATASE 57 U/L (45-117); ALT (GPT) 21 U/L (12-78); AST (GOT) 15 U/L (15-37); BICARBONATE 22.2 MEQ/L (21.0-32.0); BLOOD UREA NITROGEN 10 MG/DL (7-18); CALCIUM 10.2 MG/DL (8.5-10.1); CHLORIDE 101 MEQ/L (98-107); CREATININE 0.97 MG/DL (0.60-1.30); GLOMERULAR FILTRATION RATE 106 ML/MIN (>89); GLUCOSE,RANDOM 109 MG/DL (74-106); SODIUM (NA) 134 MEQ/L (136-145); TOTAL BILIRUBIN ADULT 0.7 MG/DL (0.2-1.0); TOTAL PROTEIN 8.9 GM/DL (6.4-8.2); TROPONIN I 0.04 NG/ML (0.02-0.05)
[2017-10-03] MEDS ORDERED: SODIUM CHLOR 0.9% 1000 ML INJ 1,000 ML IV ONE ×2 (07:00→07:15)
[2017-10-03] MEDS ORDERED: METOCLOPRAMIDE HCL 10 MG/2 ML VIAL IV PUSH ONE (07:00)
[2017-10-03] MEDS ORDERED: POTASSIUM CHLORIDE 20 MEQ CONTROLLED RELEASE TAB PO ONE (07:00)
[2017-10-03 07:05] VITALS: BP 149/80; PULSE 62; PULSE 63; RESP 17; TEMP 97.8; O2SAT 98; O2SAT 99
--- NOTE | 2017-10-03 07:12 | PD ---
HPI . GI complaint Chief Complaint: GI Complaint Time Seen by Provider: 05:24 Travel History International Travel<30 days: No Contact w/Intl Traveler<30days: No Traveled to known affect area: No History of Present Illness HPI 37-year-old male status post recent admission with a discharge diagnosis of cyclic vomiting syndrome, patient notes smoking copious amounts of marijuana daily, summarily upon discharge patient went home and smoked more marijuana. Patient now presents with having intractable vomiting. She also notes burning in his epigastrium and substernal in worsening with vomiting and lying down. Patient denies any shortness of breath, decreased exercise tolerance, recent leg pain or swelling. Patient denies hematemesis melena or hematochezia. PFSH Past Medical History Narrative Medical Past medical history reviewed Asthma: No Blood Disorders: No Anxiety: Yes Depression: Yes Heart Rhythm Problems: No Cancer: No Cardiac Catheterization: No Cardiovascular Problems: Yes High Cholesterol: No Chemotherapy: No Chest Pain: Yes Congestive Heart Failure: No COPD: No Diabetes: No Diminished Hearing: No Endocrine: No Gastrointestinal Disorders: No GERD: Yes Genitourinary: No Heparin Induced Thrombocytopen: No Hypertension: Yes Immune Disorder: No Implanted Vascular Access Dvce: No Musculoskeletal: No Neurologic: No Psychiatric: Yes Reproductive: No Respiratory: No Immunizations Current: No Radiation Therapy: No Sleep Apnea: No Thyroid Disease: No Past Surgical History Surgical History: No Previous Surgery Coronary Artery Bypass Graft: No Other Surgery: No Social History Alcohol Use: Yes (socially) Tobacco Use: Yes (former) Substance Use: Yes (marijuana) Allergies-Medications (Allergen,Severity, Reaction): Coded Allergies: No Known Allergies (Verified Adverse Reaction, Unknown, 10/03/17) Reported Meds & Prescriptions Reported Meds & Active Scripts Active Zantac (Ranitidine HCl) 150 Mg Tab 150 Mg PO BID Zofran (Ondansetron HCl) 4 Mg Tab 4 Mg PO Q8HR PRN Hydrochlorothiazide 25 Mg Tab 25 Mg PO DAILY Amlodipine (Amlodipine Besylate) 10 Mg Tab 10 Mg PO DAILY Reglan (Metoclopramide HCl) 10 Mg Tab 10 Mg PO QID PRN Carafate (Sucralfate) 1 Gram Tab 1 Gm PO QID On empty stomach Narrative Medication Allergies and medications reviewed Review of Systems Except as stated in HPI: all other systems reviewed are Neg General / Constitutional: No: Fever Eyes: No: Visual changes HENT: No: Headaches Cardiovascular: No: Chest Pain or Discomfort Respiratory: No: Shortness of Breath Gastrointestinal: Positive: Nausea, Vomiting, Abdominal Pain, No: Diarrhea Genitourinary: No: Dysuria Musculoskeletal: No: Pain Skin: No Rash Neurologic: No: Weakness Psychiatric: No: Depression Endocrine: No: Polydipsia Hematologic/Lymphatic: No: Easy Bruising Physical Exam Narrative GENERAL: Awake and alert oriented 3 no acute distress SKIN: Warm and dry. Color is normal no diaphoresis cyanosis pallor HEAD: Atraumatic. Normocephalic. EYES: Pupils equal and round. No scleral icterus. No injection or drainage. ENT: No nasal bleeding or discharge. Mucous membranes pink and moist. NECK: Trachea midline. No JVD. CARDIOVASCULAR: Regular rate and rhythm. RESPIRATORY: No accessory muscle use. Clear to auscultation. Breath sounds equal bilaterally. GASTROINTESTINAL: Abdomen soft, non-tender, nondistended. Hepatic and splenic margins not palpable. MUSCULOSKELETAL: Extremities without clubbing, cyanosis, or edema. No obvious deformities. NEUROLOGICAL: Awake and alert. No obvious cranial nerve deficits. Motor grossly within normal limits. Five out of 5 muscle strength in the arms and legs. Normal speech. PSYCHIATRIC: Appropriate mood and affect; insight and judgment normal. Data Data Last Documented VS Vital Signs Date Time Temp Pulse Resp B/P (MAP) Pulse Ox O2 Delivery O2 Flow Rate FiO2 10/03/17 05:26 17 10/03/17 05:23 98.5 76 139/83 (101) 100 Orders Orders Complete Blood Count With Diff (10/03/17 05:26) Comprehensive Metabolic Panel (10/03/17 05:26) Lipase (10/03/17 05:26) Iv Access Insert/Monitor (10/03/17 05:26) Ecg Monitoring (10/03/17 05:26) Oximetry (10/03/17 05:26) Sodium Chloride 0.9% Flush (Ns Flush) (10/03/17 05:30) Electrocardiogram (10/03/17 05:26) Al-Mag Hy-Si 40-40-4 Mg/Ml Liq (Mag-Al P (10/03/17 05:30) Lidocaine 2% Viscous (Xylocaine 2% Visco (10/03/17 05:30) Diphenhydramine Inj (Benadryl Inj) (10/03/17 05:30) Haloperidol Inj (Haldol Inj) (10/03/17 05:30) Troponin I (10/03/17 05:26) Metoclopramide Inj (Reglan Inj) (10/03/17 07:00) Potassium Chloride (Kcl) (10/03/17 07:00) Ns (Bolus) Inj (10/03/17 07:00) Magnesium (Mg) (10/03/17 06:48) Lorazepam Inj (Ativan Inj) (10/03/17 07:15) Ns (Bolus) Inj (10/03/17 07:15) Labs Laboratory Tests Test 10/03/17 05:35 White Blood Count 5.7 TH/MM3 Red Blood Count 4.90 MIL/MM3 Hemoglobin 14.9 GM/DL Hematocrit 43.7 % Mean Corpuscular Volume 89.2 FL Mean Corpuscular Hemoglobin 30.4 PG Mean Corpuscular Hemoglobin Concent 34.1 % Red Cell Distribution Width 13.6 % Platelet Count 236 TH/MM3 Mean Platelet Volume 8.3 FL Neutrophils (%) (Auto) 51.3 % Lymphocytes (%) (Auto) 35.0 % Monocytes (%) (Auto) 11.0 % Eosinophils (%) (Auto) 1.5 % Basophils (%) (Auto) 1.2 % Neutrophils # (Auto) 2.9 TH/MM3 Lymphocytes # (Auto) 2.0 TH/MM3 Monocytes # (Auto) 0.6 TH/MM3 Eosinophils # (Auto) 0.1 TH/MM3 Basophils # (Auto) 0.1 TH/MM3 CBC Comment DIFF FINAL Differential Comment Blood Urea Nitrogen 10 MG/DL Creatinine 0.97 MG/DL Random Glucose 109 MG/DL Total Protein 8.9 GM/DL Albumin 4.6 GM/DL Calcium Level 10.2 MG/DL Alkaline Phosphatase 57 U/L Aspartate Amino Transf (AST/SGOT) 15 U/L Alanine Aminotransferase (ALT/SGPT) 21 U/L Total Bilirubin 0.7 MG/DL Sodium Level 134 MEQ/L Potassium Level 2.9 MEQ/L Chloride Level 101 MEQ/L Carbon Dioxide Level 22.2 MEQ/L Anion Gap 11 MEQ/L Estimat Glomerular Filtration Rate 106 ML/MIN Troponin I 0.04 NG/ML Lipase 281 U/L MDM Medical Decision Making Medical Screen Exam Complete: Yes Emergency Medical Condition: Yes Medical Record Reviewed: Yes Differential Diagnosis Cyclic vomiting syndrome, gastritis, esophagitis Narrative Course EKG sinus rhythm at [address] T changes throughout the entire EKG consistent with old of 09/28/2017 Laboratory examinations reviewed, patient has mild hypokalemia at 2.9. Magnesium pending Antiemetics and phenothiazines for prior diagnosis of cyclic vomiting sister syndrome administered with positive effect Potassium supplemented by mouth. Care plan developed: Awaiting magnesium level, clinical improvement. Pending clinical improvement and tolerating by mouth, patient may be discharged. If intractable vomiting remains, recommend admission, possible gastroenterology evaluation Diagnosis Primary Impression: Cannabinoid hyperemesis syndrome Additional Impressions: Marijuana abuse Gastroesophageal reflux Qualified Codes: K21.0 - Gastro-esophageal reflux disease with esophagitis Linden Mahajan MD Oct 03, 2017 07:12
[2017-10-03] MEDS ORDERED: LORazepam 2 MG/ML VIAL IV PUSH ONE (07:15)
[2017-10-03] MEDS ORDERED: REGL10TA5 PO (07:35)
--- NOTE | 2017-10-03 07:35 | PD ---
Physical Exam Date Seen by Provider: Oct 03, 2017 Time Seen by Provider: 07:32 Narrative The patient is a 37-year-old male who was initially evaluated by the previous physician. Please refer to the initial history, physical, diagnostic evaluation , and treatment modality plan. Data Data Last Documented VS Vital Signs Date Time Temp Pulse Resp B/P (MAP) Pulse Ox O2 Delivery O2 Flow Rate FiO2 10/03/17 09:32 16 10/03/17 09:02 97.9 70 158/93 (114) 98 Room Air Orders Orders Complete Blood Count With Diff (10/03/17 05:26) Comprehensive Metabolic Panel (10/03/17 05:26) Lipase (10/03/17 05:26) Iv Access Insert/Monitor (10/03/17 05:26) Ecg Monitoring (10/03/17 05:26) Oximetry (10/03/17 05:26) Sodium Chloride 0.9% Flush (Ns Flush) (10/03/17 05:30) Electrocardiogram (10/03/17 05:26) Al-Mag Hy-Si 40-40-4 Mg/Ml Liq (Mag-Al P (10/03/17 05:30) Lidocaine 2% Viscous (Xylocaine 2% Visco (10/03/17 05:30) Diphenhydramine Inj (Benadryl Inj) (10/03/17 05:30) Haloperidol Inj (Haldol Inj) (10/03/17 05:30) Troponin I (10/03/17 05:26) Metoclopramide Inj (Reglan Inj) (10/03/17 07:00) Potassium Chloride (Kcl) (10/03/17 07:00) Sodium Chlor 0.9% 1000 Ml Inj (Ns 1000 M (10/03/17 07:00) Magnesium (Mg) (10/03/17 06:48) Lorazepam Inj (Ativan Inj) (10/03/17 07:15) Sodium Chlor 0.9% 1000 Ml Inj (Ns 1000 M (10/03/17 07:15) Morphine Inj (Morphine Inj) (10/03/17 09:15) Ondansetron Inj (Zofran Inj) (10/03/17 09:15) Sodium Chloride 0.9% Flush (Ns Flush) (10/03/17 09:15) Al-Mag Hy-Si 40-40-4 Mg/Ml Liq (Mag-Al P (10/03/17 09:15) Lidocaine 2% Viscous (Xylocaine 2% Visco (10/03/17 09:15) Labs Laboratory Tests Test 10/03/17 05:35 White Blood Count 5.7 TH/MM3 Red Blood Count 4.90 MIL/MM3 Hemoglobin 14.9 GM/DL Hematocrit 43.7 % Mean Corpuscular Volume 89.2 FL Mean Corpuscular Hemoglobin 30.4 PG Mean Corpuscular Hemoglobin Concent 34.1 % Red Cell Distribution Width 13.6 % Platelet Count 236 TH/MM3 Mean Platelet Volume 8.3 FL Neutrophils (%) (Auto) 51.3 % Lymphocytes (%) (Auto) 35.0 % Monocytes (%) (Auto) 11.0 % Eosinophils (%) (Auto) 1.5 % Basophils (%) (Auto) 1.2 % Neutrophils # (Auto) 2.9 TH/MM3 Lymphocytes # (Auto) 2.0 TH/MM3 Monocytes # (Auto) 0.6 TH/MM3 Eosinophils # (Auto) 0.1 TH/MM3 Basophils # (Auto) 0.1 TH/MM3 CBC Comment DIFF FINAL Differential Comment Blood Urea Nitrogen 10 MG/DL Creatinine 0.97 MG/DL Random Glucose 109 MG/DL Total Protein 8.9 GM/DL Albumin 4.6 GM/DL Calcium Level 10.2 MG/DL Alkaline Phosphatase 57 U/L Aspartate Amino Transf (AST/SGOT) 15 U/L Alanine Aminotransferase (ALT/SGPT) 21 U/L Total Bilirubin 0.7 MG/DL Sodium Level 134 MEQ/L Potassium Level 2.9 MEQ/L Chloride Level 101 MEQ/L Carbon Dioxide Level 22.2 MEQ/L Anion Gap 11 MEQ/L Estimat Glomerular Filtration Rate 106 ML/MIN Magnesium Level 1.7 MG/DL Troponin I 0.04 NG/ML Lipase 281 U/L [facility] Medical Record Reviewed: Yes Supervised Visit with DRISS: No Interpretation(s) Laboratory Tests Test 10/03/17 05:35 White Blood Count 5.7 TH/MM3 Red Blood Count 4.90 MIL/MM3 Hemoglobin 14.9 GM/DL Hematocrit 43.7 % Mean Corpuscular Volume 89.2 FL Mean Corpuscular Hemoglobin 30.4 PG Mean Corpuscular Hemoglobin Concent 34.1 % Red Cell Distribution Width 13.6 % Platelet Count 236 TH/MM3 Mean Platelet Volume 8.3 FL Neutrophils (%) (Auto) 51.3 % Lymphocytes (%) (Auto) 35.0 % Monocytes (%) (Auto) 11.0 % Eosinophils (%) (Auto) 1.5 % Basophils (%) (Auto) 1.2 % Neutrophils # (Auto) 2.9 TH/MM3 Lymphocytes # (Auto) 2.0 TH/MM3 Monocytes # (Auto) 0.6 TH/MM3 Eosinophils # (Auto) 0.1 TH/MM3 Basophils # (Auto) 0.1 TH/MM3 CBC Comment DIFF FINAL Differential Comment Blood Urea Nitrogen 10 MG/DL Creatinine 0.97 MG/DL Random Glucose 109 MG/DL Total Protein 8.9 GM/DL Albumin 4.6 GM/DL Calcium Level 10.2 MG/DL Alkaline Phosphatase 57 U/L Aspartate Amino Transf (AST/SGOT) 15 U/L Alanine Aminotransferase (ALT/SGPT) 21 U/L Total Bilirubin 0.7 MG/DL Sodium Level 134 MEQ/L Potassium Level 2.9 MEQ/L Chloride Level 101 MEQ/L Carbon Dioxide Level 22.2 MEQ/L Anion Gap 11 MEQ/L Estimat Glomerular Filtration Rate 106 ML/MIN Troponin I 0.04 NG/ML Lipase 281 U/L Differential Diagnosis Differential diagnosis includes gastritis, gastroparesis, peptic ulcer disease, GERD, pancreatitis, esophageal spasm. Narrative Course The patient was initially evaluate by the previous physician, please refer to the initial history, physical, diagnostic evaluation, treatment modality plan. I reviewed the EMR, patient is had multiple visits for vomiting, has had 4 previous CTs of the abdomen and pelvis, one previous CT angiogram, and when nuclear medicine myocardial perfusion scan with an last several years, all which were negative and unremarkable. The patient may have chronic gastritis versus gastroparesis. He does smoke marijuana daily, but only takes when shower per day. Unsure if this is gastroparesis versus hyperemesis cannabis syndrome. The patient was reevaluated at 7:30 AM, was resting comfortably, but was sedated from medications. He did receive IV fluids. The patient's family member states that they prescribed Zofran when he was discharged yesterday, however, the prescription was too expensive and he was unable to afford the Zofran. However, he has taken metoclopramide in the past with good results. Therefore, metoclopramide was prescribed. The patient was reevaluated, complaining of epigastric abdominal pain. Therefore, patient was administer morphine and a GI cocktail. The patient was reevaluated at 9:45 AM, his symptoms have improved. I advised the patient he needs to follow-up with gastroenterology for outpatient endoscopy. Diagnosis Primary Impression: Cannabinoid hyperemesis syndrome Additional Impressions: Gastroesophageal reflux Qualified Codes: K21.0 - Gastro-esophageal reflux disease with esophagitis Marijuana abuse Patient Instructions: General Instructions Additional Instruction: Follow-up with gastroenterology. Medications as directed. Decrease marijuana use. Plenty fluids to stay hydrated. Med/Other Pt SpecificInfo: Prescription(s) given Scripts Metoclopramide (Reglan) 10 Mg Tab 10 MG PO TIDAC, #20 TAB 0 Refills Prov: Massimo Alfred MD 10/03/17 Disposition: DISCHARGE HOME Condition: Stable Massimo Alfred MD Oct 03, 2017 07:35
[2017-10-03 09:02] VITALS: BP 158/93; PULSE 70; RESP 17; TEMP 97.9; O2SAT 98
[2017-10-03] MEDS ORDERED: ONDANSETRON HCL 4 MG/2 ML VIAL IVP ONE (09:15)
[2017-10-03] MEDS ORDERED: MORPHINE SULFATE 4 MG/ML INJ IV PUSH ONE (09:15)
[2017-10-03 09:32] VITALS: RESP 16
[2017-10-03 10:30] VITALS: BP 138/85; TEMP 97.8
--- NOTE | 2017-10-03 16:10 | EKG ---
Date Performed: 10/03/2017 Time Performed: 05:33:57 PTAGE: 37 years EKG: Sinus rhythm POSSIBLE LEFT ATRIAL ENLARGEMENT MARKED LEFT AXIS DEVIATION LEFT VENTRICULAR HYPERTROPHY AND ST-T CH MARIELY PROBABLE LATERAL MYOCARDIAL INFARCTION ABNORMAL ECG Since the prior tracing, there has been no s ignificant change PREVIOUS TRACING : 08/28/2017 16.18 DOCTOR: Carmen Oh Interpretating Date/Time 10/03/2017 16:08:34
== END 2017-10-03 10:30 | disposition home or self-care (01) ==
LOC: NEPC 05:14
DX: G43.A0 Cyclical vomiting, in migraine, not intractable (principal); T40.7X5A Adverse effect of cannabis (derivatives), initial encounter; F12.10 Cannabis abuse, uncomplicated; K21.0 Gastro-esophageal reflux disease with esophagitis; I10 Essential (primary) hypertension; R94.31 Abnormal electrocardiogram [ECG] [EKG]; Z87.891 Personal history of nicotine dependence
CPT/HCPCS: 80053; 83690; 83735; 84484; 85025; 93005; 96361; 96372; 96374; 96375; 99284; J1200; J1630; J2060; J2270; J2405; J2765; J7030

== ENCOUNTER 2018-05-29 06:16 | Observation (INO) ==
[2018-05-29] MEDS ORDERED: Sod Chloride 0.9% Inj 1,000 ML IV.SIG ONE (06:39)
[2018-05-29] MEDS ORDERED: Morphine Inj 4 MG/ML Vial IV.PUSH ONE (06:55)
[2018-05-29] MEDS ORDERED: Pantoprazole Inj 40 MG Vial IV.PUSH ONE (06:57)
[2018-05-29 07:36] LABS: Baso % (Auto) 0.7 % (0.0-2.0); Eos # (Auto) 0.1 th/mm3 (0.0-0.4); Eos % (Auto) 1.4 % (0.0-4.0); Hematocrit 43.5 % (39.0-51.0); Hemoglobin 14.2 gm/dL (13.0-17.0); Lymph # (Auto) 2.3 th/mm3 (1.0-4.8); Lymph % (Auto) 32.8 % (9.0-44.0); Mean Corpuscular HGB Conc 32.7 % (32.0-36.0); Mean Corpuscular Hemoglobin 31.1 pg (27.0-34.0); Mean Platelet Volume 8.5 fL (7.0-11.0); Mono # (Auto) 0.7 th/mm3 (0.0-0.9); Mono % (Auto) 10.1 % (0.0-8.0); Neut # (Auto) 3.8 th/mm3 (1.8-7.7); Platelet Count 192 th/mm3 (150-450); Red Blood Count 4.58 mil/mm3 (4.50-5.90); Red Cell Distribution Width 14.1 % (11.6-17.2)
--- NOTE | 2018-05-29 07:38 | XR ---
EXAM DATE: 05/29/2018 6:55 AM EDT AGE/SEX: 37 years / Male INDICATIONS: Chest pain and shortness of breath. CLINICAL DATA: This is the patient's initial encounter. Patient reports that signs and symptoms have been present for 2 days and indicates a pain score of 10/10. MEDICAL/SURGICAL HISTORY: None. None. COMPARISON: [facility] [place]. . FINDINGS: The heart is enlarged. Minimal central pulmonary vascular congestion is noted. No focal alveolar cons olidation is noted. CONCLUSION: 1. Minimal central pulmonary vascular congestion. 2. Cardiomegaly. Electronically signed by: Earl Condon MD 05/29/2018 7:37 AM EDT
[2018-05-29 07:42] LABS: Bilirubin,Urine Negative (Negative); Clarity,Urine Clear (Clear); Color,Urine Yellow (Yellw/Straw); Glucose,Urine (UA) Negative (Negative); Leukocyte Esterase,Urine Negative (Negative); Nitrite,Urine Negative (Negative); Specific Gravity,Urine 1.012 (1.002-1.035)
[2018-05-29 07:56] LABS: Alanine Aminotransferase 43 U/L (12-78); Albumin 3.9 g/dL (3.4-5.0); Anion Gap 11 meq/L (5-15); Aspartate Aminotransferase 50 U/L (15-37); Blood Urea Nitrogen 14 mg/dL (7-18); Calcium 8.8 mg/dL (8.5-10.1); Carbon Dioxide 24.8 meq/L (21.0-32.0); Chloride 106 meq/L (98-107); Glomerular Filtration Rate Greater Than 89 mL/min (>89); Glucose,Random 88 mg/dL (74-106); Lipase 87 U/L (73-393); Potassium 4.3 meq/L (3.5-5.1); Sodium 142 meq/L (136-145)
[2018-05-29 07:57] LABS: Activated Partial Thrombo Time 29.6 sec (24.3-30.1); Prothrombin Time 10.3 sec (9.8-11.6)
[2018-05-29 07:59] LABS: Alkaline Phosphatase 43 U/L (45-117); Creatine Kinase 527 U/L (39-308); Total Protein 8.3 g/dL (6.4-8.2)
[2018-05-29 08:18] LABS: CKMB Percent 0.9 % (0.0-4.0)
[2018-05-29 08:25] LABS: Creatine Kinase MB 4.7 ng/mL (0.5-3.6)
--- NOTE | 2018-05-29 08:42 | CT ---
EXAM DATE: 05/29/2018 8:23 AM EDT AGE/SEX: 37 years / Male INDICATIONS: Abdominal pain with nausea. CLINICAL DATA: This is the patient's initial encounter. Patient reports that signs and symptoms have been present for 1 day and indicates a pain score of 6/10. MEDICAL/SURGICAL HISTORY: None. None. ORAL CONTRAST: No oral contrast ingested. RADIATION DOSE: 7.57 CTDI (mGy) COMPARISON: [facility], CT ABDOMEN & PELVIS W/[place] CONTRAST, 03[place]22/2017. [facility] [place] W [place]A ST[place]28/2017. . TECHNIQUE: Multiple contiguous axial images were obtained through the abdomen and pelvis following b olus infusion of 93 ml Omnipaque 350 (iohexol) nonionic water-soluble contrast as a single exam dos e. No oral contrast ingested. Using automated exposure control and adjustment of the mA and/or kV ac cording to patient size, radiation dose was kept as low as reasonably achievable to obtain optimal di agnostic quality images. DICOM format image data is available electronically for review and comparis on. FINDINGS: Lower Lungs: The visualized lower lungs are clear. Liver: The liver is enlarged. There is a stable enhancing lesion within the left lobe measuring 4 cm. There is no dilation of the biliary tree. Spleen: Homogeneous density without enlargement. Pancreas: Unremarkable without mass or calcification. Kidneys: Normal in size and shape. No evidence of mass or hydronephrosis. There is a 17 mm upper vinod e left renal cyst. Adrenal Glands: Unremarkable. Aorta: The aorta and proximal iliac vessels are grossly unremarkable without aneurysmal dilation. Bowel/Mesentery: Minimal ascites is noted within the pelvis. The bowel loops are grossly unremarkabl e. The cecum and sigmoid colon have a normal configuration. The appendix is normal. Abdominal Wall: Intact. Retroperitoneum: No evidence of adenopathy in the retrocrural, para-aortic, or deep pelvic regions. Bladder: Contours are smooth. Reproductive Organs: No abnormal masses or calcifications seen. Inguinal: The inguinal region is unremarkable without evidence of adenopathy. Bony Structures: Mild degenerative changes of the thoracolumbar spine are noted. CONCLUSION: 1. Hepatomegaly. 2. Stable enhancing lesion within the left lobe of the liver measuring 4 cm. Outpatient MRI of the a bdomen with contrast may be helpful for further assessment of this lesion if not early performed. 3. Minimal ascites within the pelvis. 4. 17 mm upper pole left renal cyst. Electronically signed by: Earl Condon MD 05/29/2018 8:41 AM EDT
--- NOTE | 2018-05-29 08:42 | ED ---
HPI General Chief Complaint: Abdominal Pain Stated Complaint: chest, abd pain Time Seen by Provider: 05/29/18 06:39 Source: patient Mode of arrival: ambulatory Limitations: no limitations History of Present Illness MD complaint: Reports abdominal pain Onset (ago): hour(s) (2) Pain Consistency: constant Location: Reports LUQ Severity: similar to previous episodes Severity scale (1-10): 9 Quality: Reports stabbing and sharp Radiation: Reports none Migration to: Reports no migration Relieving factors: nothing Exacerbating factors: nothing Context: Reports other (h/o marijuana abuse) Associated symptoms: Reports nausea and other (Diaphoresis, shortness of breath) Related Data Home Medications Medication Instructions Recorded Confirmed No Known Home Medications 05/29/18 05/29/18 Allergies Allergy/AdvReac Type Severity Reaction Status Date / Time No Known Allergies Allergy Unverified 05/29/18 06:19 Review of Systems ROS: all other systems reviewed are negative [facility] Medical History Medical History Cannabinoid hyperemesis syndrome (Acute) Patient denies medical problems (Acute) Surgical History Surgical History No history of previous surgery (Acute) Social History Social History Second Hand Smoke Exposure: No Smoking Status: Former smoker How Often Do You Have a Drink Containing Alcohol: Monthly or less Recent Travel in [place] within the Last 8 Weeks: No Recent Out of Country Travel within the Last 8 Weeks: No Immunization History Tetanus Immunization: >5 Years Hx Influenza Vaccine This Season: No Exam Const General: cooperative, healthy appearing, no acute distress, well developed, well groomed, acute distress, diaphoretic and other (Tremulous) Nutritional Appearance: well nourished Orientation: alert, awake and oriented x3 HENMT Head: normal to inspection, normocephalic and atraumatic Mouth: moist mucous membranes Eyes Conjunctivae: conjunctivae normal Sclera: sclerae normal EOM: EOM intact bilaterally Neck Neck: normal visual inspection and full ROM Chest Chest: normal inspection of the chest Resp Effort & Inspection: normal respiratory effort, able to speak in complete sentences and tachypneic Auscultation: clear to auscultation bilaterally Cardio Rate: regular rate Rhythm: regular rhythm Heart Sounds: S1 normal and S2 normal GI Inspection: normal to inspection Palpation: soft and tender in the LUQ Back/Spine/Pelvis Cervical Spine: cervical ROM normal Thoracic/Lumbar Spine: thoraco-lumbar ROM normal Skin General: no rashes or lesions noted, turgor normal and other (Diaphoretic) Neuro General: alert, awake, oriented x3, moves all extremities and CN's II-XI intact bilaterally Extrem General: normal to inspection and full ROM Psych Appearance: grossly normal Mental Status: mental status grossly normal Speech and Movement: speech and movement normal Mood: congruent mood Affect: normal affect Attitude: cooperative Thought Process: normal Thought Content: normal Judgment: judgment good Course Reevaluation(s) Reevaluation #1: His lactic acid was over 5. 1 L of IV fluid was ordered initially. He needs a total of 3 L. 2 mL have been ordered. Time: 08:30 Consultations Consultation #1: Dr. Zeepda asks that I admit the patient to Dr. Nelson. Time: 09:20 Initial Documented Vital Signs Temperature 98.9 F 05/29/18 06:20 Pulse Rate 68 05/29/18 06:20 Respiratory Rate 20 05/29/18 06:20 Blood Pressure 178/105 H 05/29/18 06:20 Pulse Oximetry 100 05/29/18 06:20 Last Documented Vital Signs Temperature 98.6 F 05/29/18 09:14 Pulse Rate 70 05/29/18 09:00 Respiratory Rate 20 05/29/18 09:00 Blood Pressure 181/98 H 05/29/18 08:30 Pulse Oximetry 100 05/29/18 09:00 Critical Care Time Critical Care Time: Yes Total Critical Care Time: 40 Attestation: Time to perform other separately billable procedures was not included in the critical care time. My time did not include minutes spent treating any other patients simultaneously or on activities that did not directly contribute to the patient's treatment. The services I provided to this patient were to treat and/or prevent clinically significant deterioration due to lactic acidosis I provided critical care services requiring my management, as noted below: Chart data review, documentation time, medication orders and management, vital sign assessments/reviewing monitor data, ordering and reviewing lab tests, ordering and interpreting/reviewing x-rays and diagnostic studies, care of the patient and discussion of the patient with the admitting physicians Medical Decision Making MDM Narrative Medical decision making narrative: This patient presents with the acute onset of left upper abdominal pain associated with nausea, diaphoresis and tremors. Onset was just prior to presentation. He has a history of similar previous episodes. He has a history of cannabinoids hyperemesis syndrome. He is being treated initially with a fluid bolus, Protonix and morphine. Medical Screen Exam Complete: Yes Emergency Medical Condition: Yes Differential Diagnosis Differential Diagnosis: Differential diagnosis of abdominal pain includes but is not limited to gastritis, pancreatitis, hepatitis, gastroenteritis, constipation, urinary retention, peptic ulcer disease, diverticulitis or appendicitis Medical Records Medical records reviewed: Yes I reviewed the patient's medical records. History of cannabinoid hyperemesis syndrome is Lab Data Lab results reviewed: Yes I reviewed the patient's lab results. Result diagrams: 05/29/18 07:10 05/29/18 07:10 Lab Results 05/29/18 05/29/18 05/29/18 Range/Units 07:10 07:10 07:10 WBC 7.0 (4.0-11.0) th/mm3 RBC 4.58 (4.50-5.90) mil/mm3 Hgb 14.2 (13.0-17.0) gm/dL Hct 43.5 (39.0-51.0) % MCV 95.0 (80.0-100.0) fL MCH 31.1 (27.0-34.0) pg MCHC 32.7 (32.0-36.0) % RDW 14.1 (11.6-17.2) % Plt Count 192 (150-450) th/mm3 MPV 8.5 (7.0-11.0) fL Neut % (Auto) 55.0 (16.0-70.0) % Lymph % (Auto) 32.8 (9.0-44.0) % [place] % (Auto) 10.1 H (0.0-8.0) % Eos % (Auto) 1.4 (0.0-4.0) % Baso % (Auto) 0.7 (0.0-2.0) % Neut # (Auto) 3.8 (1.8-7.7) th/mm3 Lymph # (Auto) 2.3 (1.0-4.8) th/mm3 [place] # (Auto) 0.7 (0.0-0.9) th/mm3 Eos # (Auto) 0.1 (0.0-0.4) th/mm3 Baso # (Auto) 0.0 (0.0-0.2) th/mm3 WBC Differential . Differential Comment Auto diff final PT 10.3 (9.8-11.6) sec INR 1.0 Ratio APTT 29.6 (24.3-30.1) sec Sodium (136-145) meq/L Potassium (3.5-5.1) meq/L Chloride (98-107) meq/L Carbon Dioxide (21.0-32.0) meq/L Anion Gap (5-15) meq/L BUN (7-18) mg/dL Creatinine (0.60-1.30) mg/dL Estimated GFR (>89) mL/min Random Glucose (74-106) mg/dL Lactic Acid (0.4-2.0) mmol/L Calcium (8.5-10.1) mg/dL Total Bilirubin (0.2-1.0) mg/dL AST (15-37) U/L ALT (12-78) U/L Alkaline Phosphatase (45-117) U/L Total Creatine Kinase 527 H (39-308) U/L CK-MB (CK-2) 4.7 H (0.5-3.6) ng/mL CK-MB (CK-2) % 0.9 (0.0-4.0) % Troponin I Less than 0.02 L (0.02-0.05) ng/mL Total Protein (6.4-8.2) g/dL Albumin (3.4-5.0) g/dL Lipase (73-393) U/L Urine Color (Yellw/Straw) Urine Clarity (Clear) Urine pH (5.0-8.5) Ur Specific [place] (1.002-1.035) Urine Protein (Neg-Trace) mg/dL Urine Glucose (UA) (Negative) mg/dL Urine Ketones (Negative) mg/dL Urine Occult Blood (Negative) Urine Nitrate (Negative) Urine Bilirubin (Negative) Urine Urobilinogen (Less than 2) mg/dL Ur Leukocyte Esterase (Negative) Urine WBC (0-5) /hpf Micro UA Comment Ur Microscopic Review Urine Culture Comments 05/29/18 05/29/18 05/29/18 Range/Units 07:10 07:14 07:29 WBC (4.0-11.0) th/mm3 RBC (4.50-5.90) mil/mm3 Hgb (13.0-17.0) gm/dL Hct (39.0-51.0) % MCV (80.0-100.0) fL MCH (27.0-34.0) pg MCHC (32.0-36.0) % RDW (11.6-17.2) % Plt Count (150-450) th/mm3 MPV (7.0-11.0) fL Neut % (Auto) (16.0-70.0) % Lymph % (Auto) (9.0-44.0) % [place] % (Auto) (0.0-8.0) % Eos % (Auto) (0.0-4.0) % Baso % (Auto) (0.0-2.0) % Neut # (Auto) (1.8-7.7) th/mm3 Lymph # (Auto) (1.0-4.8) th/mm3 [place] # (Auto) (0.0-0.9) th/mm3 Eos # (Auto) (0.0-0.4) th/mm3 Baso # (Auto) (0.0-0.2) th/mm3 WBC Differential Differential Comment PT (9.8-11.6) sec INR Ratio APTT (24.3-30.1) sec Sodium 142 (136-145) meq/L Potassium 4.3 (3.5-5.1) meq/L Chloride 106 (98-107) meq/L Carbon Dioxide 24.8 (21.0-32.0) meq/L Anion Gap 11 (5-15) meq/L BUN 14 (7-18) mg/dL Creatinine 1.02 (0.60-1.30) mg/dL Estimated GFR Greater than 89 (>89) mL/min Random Glucose 88 (74-106) mg/dL Lactic Acid 5.0 H* (0.4-2.0) mmol/L Calcium 8.8 (8.5-10.1) mg/dL Total Bilirubin 0.5 (0.2-1.0) mg/dL AST 50 H (15-37) U/L ALT 43 (12-78) U/L Alkaline Phosphatase 43 L (45-117) U/L Total Creatine Kinase (39-308) U/L CK-MB (CK-2) (0.5-3.6) ng/mL CK-MB (CK-2) % (0.0-4.0) % Troponin I (0.02-0.05) ng/mL Total Protein 8.3 H (6.4-8.2) g/dL Albumin 3.9 (3.4-5.0) g/dL Lipase 87 (73-393) U/L Urine Color Yellow (Yellw/Straw) Urine Clarity Clear (Clear) Urine pH 8.0 (5.0-8.5) Ur Specific [place] 1.012 (1.002-1.035) Urine Protein Negative (Neg-Trace) mg/dL Urine Glucose (UA) Negative (Negative) mg/dL Urine Ketones Negative (Negative) mg/dL Urine Occult Blood Negative (Negative) Urine Nitrate Negative (Negative) Urine Bilirubin Negative (Negative) Urine Urobilinogen 2.0 H (Less than 2) mg/dL Ur Leukocyte Esterase Negative (Negative) Urine WBC Less than 1 (0-5) /hpf Micro UA Comment Culture not ind Ur Microscopic Review Not Reportable Urine Culture Comments Culture not ind Imaging Data Radiologist's impression: Abdomen/Pelvis CT 05/29/18 06:55 CONCLUSION: 1. Hepatomegaly. 2. Stable enhancing lesion within the left lobe of the liver measuring 4 cm. Outpatient MRI of the abdomen with contrast may be helpful for further assessment of this lesion if not early performed. 3. Minimal ascites within the pelvis. 4. 17 mm upper pole left renal cyst. Chest X-Ray 05/29/18 06:55 CONCLUSION: 1. Minimal central pulmonary vascular congestion. 2. Cardiomegaly. ECG Data EKG Prior to Arrival: No Attestation: I personally reviewed and interpreted this ECG as follows: (NSR. rate 57. LVH. partial RBBB. nonspecific STT wave changes.) Prior ECG tracings: available for review Discharge Plan Discharge Disposition Patient Disposition: 30 Still Patient Discharge Details Diagnosis: Abdominal pain, Vomiting Physicians Team ED Provider: Adilene Ty Primary Care Provider: UNKNOWN, Rxs /Orders / Referrals /Forms Prescriptions: No Action No Known Home Medications RF: 0 Status ED Status: Pending Admission
[2018-05-29] MEDS: Sod Chloride 0.9% Inj 1,000 ML IV.SIG SCH ×2 (08:45→09:34)
[2018-05-29] MEDS ORDERED: Acetaminophen 325 MG Tablet PO PRN (09:54)
[2018-05-29] MEDS ORDERED: Naloxone Inj 0.4 MG/ML Vial IV.PUSH PRN (09:54)
--- NOTE | 2018-05-29 09:54 | P.HPFP ---
History of Present Illness Primary Care Physician: UNKNOWN <Jose Nelson - 05/29/18 21:16> UNKNOWN <Gerardo Sims 05/29/18 09:54> Chief Complaint: emesis <Gerardo Sims 05/29/18 16:02> History of Present Illness: Patient is a 37 year old male with a history of hypertension and cannabinoid associated hyperemesis who presents with abdominal pain, chest pain, and intractable emesis. He was in his typical state of health yesterday and woke up this morning around 5:45. He went to the bathroom and while having a bowel movement began to have nausea and abdominal pain. The pain and nausea comes in waves. He describes it as sharp, dull and crampy. It radiates to his chest. He has had 7 episodes of NBNB emesis this morning. He has a burning, intermittent chest pain the preceded his emesis, but has gotten worse. He states that this is similar to the episodes in the past where he was diagnosed with cannabinoid associated hyperemesis. He states that these episodes last anywhere from a few hours to a full day. He smoked his last joint yesterday around 7pm. He typically smokes 2- 3 joints per day. He also has mild headache, diaphoresis, and feeling of fast heart rate which comes in waves at this time. He is somnolent during history taking and often dozes off. In the ED he was given 2mg IV ativan, 10 mg IV Reglan, 4mg IV zofran, 4mg IV morphine, and 1 L of NS. Past medical: Multiple episodes of cannabinoid associated hyperemesis Hypertension, untreated at this time Past surgical history: Denies surgical history Social: Smokes 2-3 joints per day Former cigarette smoker, for 6 years Denies alcohol use and denies other drug use <Gerardo Sims 05/29/18 16:02> - Diagnosis (1) Dehydration (2) Abdominal pain (3) Vomiting (4) Hypertension <MasterJose quinn - 05/29/18 21:16> (1) Dehydration (2) Abdominal pain (3) Vomiting (4) Hypertension <Gerardo Sims 05/29/18 17:04> Review of Systems Constitutional: Reports headache(s), Denies body ache(s), Denies chills < Gerardo Sims 05/29/18 16:02> Eyes: Denies blurry vision <Gerardo Sims 05/29/18 16:02> Ears, Nose, Mouth, and Throat: Denies abnormal hearing <Gerardo Sims 05/29/18 16:02> Cardiovascular: Reports chest pain, Reports fast heart rate <Gerardo Sims 05/29/18 16:02> Gastrointestinal: Reports abdominal pain, Reports nausea, Reports vomiting, Denies constipation <Gerardo Sims 05/29/18 16:02> Comments: denies diarrhea <Gerardo Sims 05/29/18 16:02> PMFSH - History History Provided By: Patient <Gerardo Sims 05/29/18 09:54> - Medical / Surgical Hx Neg / Unobtainable Surgical History: No Previous Surgery <Gerardo Sims 05/29/18 16:02> - Medical History Medical History: Medical History (Last Updated 05/29/18 @ 15:24 by Gerardo Sims MD, R1) Cannabinoid hyperemesis syndrome Hypertension Patient denies medical problems <Jose Nelson 05/29/18 21:16> Medical History (Last Updated 05/29/18 @ 15:24 by Gerardo Sims MD, R1) Cannabinoid hyperemesis syndrome Hypertension Patient denies medical problems <Gerardo Sims 05/29/18 16:02> - Surgical History Surgical History: Surgical History (Last Updated 05/29/18 @ 06:21 by Kailee Fregoso, COURT) No history of previous surgery <Jose Nelson 05/29/18 21:16> Surgical History (Last Updated 05/29/18 @ 06:21 by Kailee Fregoso, COURT) No history of previous surgery <Gerardo Sims 05/29/18 09:54> - Tobacco History Second Hand Smoke Exposure: No <Gerardo Sims 05/29/18 09:54> Tobacco Use In Past 30 Days: No <Gerardo Sims/02/18 09:54> Smoking Status: Former smoker <Gerardo Sims 05/29/18 09:54> - Alcohol History How Often Do You Have a Drink Containing Alcohol: Monthly or less <Gerardo Sims 05/29/18 09:54> - Travel History Recent Travel in the [facility] Within the Last 8 Weeks: No <Gerardo Sims 05/29/18 09:54> Recent Travel Out of the Country Within the Last 8 Weeks: No <Gerardo Sims 05/29/18 09:54> - Immunization History Tetanus Immunization: >5 Years <Gerardo Sims 05/29/18 09:54> Hx Influenza Vaccine This Season: No <Gerardo Sims 05/29/18 09:54> Medications and Allergies Allergies Allergy/AdvReac Type Severity Reaction Status Date / Time No Known Allergies Allergy Unverified 05/29/18 06:19 <Jose Nelson 05/29/18 21:16> Home Medications Medication Instructions Recorded Confirmed Type No Known Home Medications 05/29/18 05/29/18 History <Jose Nelson 05/29/18 21:16> Active Medications: Active Medications Acetaminophen (Tylenol) 650 mg PO Q6H PRN PRN Reason: PAIN 1-10 OR TEMP > 101 F Last Admin: 05/29/18 15:40 Dose: 650 mg Amlodipine Besylate (Norvasc) 10 mg PO DAILY SILVINO Last Admin: 05/29/18 11:02 Dose: 10 mg Clonidine HCl (Catapres) 0.1 mg PO Q6H PRN PRN Reason: SEE LABEL COMMENTS Last Admin: 05/29/18 15:40 Dose: 0.1 mg Sodium Chloride (Ns Inj) 1,000 mls @ 0 mls/hr IV.SIG BOLUS SILVINO Stop: 05/30/18 08:31 Last Infusion: 05/29/18 11:18 Dose: Infused Sodium Chloride (Ns Inj) 1,000 mls @ 150 mls/hr IV.CONT .Q6H40M SILVINO Last Infusion: 05/29/18 16:09 Dose: Infused Lisinopril (Prinivil) 20 mg PO DAILY SILVINO Lorazepam (Ativan Inj) 1 mg IV.PUSH Q4H PRN PRN Reason: abdominal pain Last Admin: 05/29/18 15:39 Dose: 1 mg Metoclopramide HCl (Reglan Inj) 10 mg IV.PUSH Q8H PRN; Protocol PRN Reason: NAUSEA Last Admin: 05/29/18 20:08 Dose: 10 mg Naloxone HCl (Narcan Inj) 0.4 mg IV.PUSH UNSCH PRN PRN Reason: SEE LABEL COMMENTS Pantoprazole Sodium (Protonix) 40 mg PO DAILY SILVINO Sodium Chloride (Ns Flush) 2 ml IV.FLUSH PRN PRN PRN Reason: FLUSH AFTER USING IV ACCESS Last Admin: 05/29/18 07:13 Dose: 2 ml <Jose Nelson - 05/29/18 21:16> Active Medications Clonidine HCl (Catapres) 0.1 mg PO Q6H PRN PRN Reason: SEE LABEL COMMENTS Sodium Chloride (Ns Inj) 1,000 mls @ 0 mls/hr IV.SIG BOLUS SILVINO Stop: 05/30/18 08:31 Last Admin: 05/29/18 09:34 Dose: 999 mls/hr Sodium Chloride (Ns Inj) 1,000 mls @ 140 mls/hr IV.CONT .Q7H9M SILVINO Ondansetron HCl (Zofran Inj) 4 mg IV.PUSH Q6H PRN PRN Reason: NAUSEA OR VOMITING Sodium Chloride (Ns Flush) 2 ml IV.FLUSH PRN PRN PRN Reason: FLUSH AFTER USING IV ACCESS Last Admin: 05/29/18 07:13 Dose: 2 ml <Gerardo Sims - 05/29/18 09:54> Exam Vital signs: Vital Signs 05/29/18 06:20 05/29/18 08:30 05/29/18 09:00 Temperature 98.9 F Pulse Rate 68 52 L 70 Respiratory Rate 20 20 20 Blood Pressure 178/105 H 181/98 H Pulse Oximetry 100 100 100 05/29/18 09:14 05/29/18 09:24 05/29/18 12:31 Temperature 98.6 F 98.6 F Pulse Rate 60 63 Respiratory Rate 20 Blood Pressure 186/90 H 196/113 H Pulse Oximetry 99 05/29/18 15:25 05/29/18 20:00 Temperature 100.2 F H 97.9 F Pulse Rate 66 74 Respiratory Rate 20 19 Blood Pressure 195/119 H 151/93 H Pulse Oximetry 100 98 Intake & Output 05/29/18 05/29/18 05/30/18 06:59 18:59 06:59 Intake Total 5000 / 5000 Output Total 1000 / 1000 Balance 4000 / 4000 Weight 108.862 kg Intake: IV 5000 / 5000 NS Inj 1,000 ML @ 150 mls/hr IV 1999 .CONT .Q6H40M SILVINO Rx#:[id number] NS Inj 1,000 ML @ Wide Open IV. 3000 / 3000 SIG BOLUS SILVINO Rx#:[id number] Output: Urine 1000 / 1000 <Jose Nelson - 05/29/18 21:16> Vital Signs 05/29/18 06:20 05/29/18 08:30 05/29/18 09:00 Temperature 98.9 F Pulse Rate 68 52 L 70 Respiratory Rate 20 20 20 Blood Pressure 178/105 H 181/98 H Pulse Oximetry 100 100 100 05/29/18 09:14 Temperature 98.6 F Pulse Rate Respiratory Rate Blood Pressure Pulse Oximetry Intake & Output 05/28/18 05/29/18 05/29/18 18:59 06:59 18:59 Intake Total 1999 Balance 1999 Weight 108.862 kg Intake: IV 1999 NS Inj 1,000 ML @ Wide Open IV. 1999 SIG BOLUS SILVINO Rx#:[id number] <Gerardo Sims - 05/29/18 09:54> Narrative: General: Well-developed and in no acute distress. Appears stated age patient. Somnolent on exam. HEENT: Atraumatic, PERRL, non-icteric sclera and no conjunctival injection, moist mucous membranes Neck: Supple, non-tender without masses or lymphadenopathy, trachea midline Cardiac: Regular rate and rhythm without murmurs or gallops Pulmonary: Non-labored breathing. Lungs clear to auscultation bilaterally with good air movement Abdomen: Normal bowel sounds, soft with mild tenderness to deep without rebound or guarding Extremities: No edema, 2+ pedal pulses, capillary refill less than 2 seconds <Gerardo Sims - 05/29/18 16:02> Results - Labs Result diagrams: 05/29/18 07:10 05/29/18 07:10 <Jose Nelson K - 05/29/18 21:16> Abnormal lab results 05/29/18 05/29/18 05/29/18 Range/Units 07:10 07:10 07:10 [place] % (Auto) 10.1 H (0.0-8.0) % Lactic Acid (0.4-2.0) mmol/L AST 50 H (15-37) U/L Alkaline Phosphatase 43 L (45-117) U/L Total Creatine Kinase 527 H (39-308) U/L CK-MB (CK-2) 4.7 H (0.5-3.6) ng/mL Troponin I Less than 0.02 L (0.02-0.05) ng/mL Total Protein 8.3 H (6.4-8.2) g/dL Urine Urobilinogen (Less than 2) mg/dL U Cannabinoids Screen (Neg) 05/29/18 05/29/18 05/29/18 Range/Units 07:14 07:14 07:29 [place] % (Auto) (0.0-8.0) % Lactic Acid 5.0 H* (0.4-2.0) mmol/L AST (15-37) U/L Alkaline Phosphatase (45-117) U/L Total Creatine Kinase (39-308) U/L CK-MB (CK-2) (0.5-3.6) ng/mL Troponin I (0.02-0.05) ng/mL Total Protein (6.4-8.2) g/dL Urine Urobilinogen 2.0 H (Less than 2) mg/dL U Cannabinoids Screen Pos H (Neg) 05/29/18 05/29/18 05/29/18 Range/Units 12:53 13:56 16:50 [place] % (Auto) (0.0-8.0) % Lactic Acid 2.5 H 3.0 H (0.4-2.0) mmol/L AST (15-37) U/L Alkaline Phosphatase (45-117) U/L Total Creatine Kinase 411 H (39-308) U/L CK-MB (CK-2) (0.5-3.6) ng/mL Troponin I Less than 0.02 L (0.02-0.05) ng/mL Total Protein (6.4-8.2) g/dL Urine Urobilinogen (Less than 2) mg/dL U Cannabinoids Screen (Neg) 05/29/18 Range/Units 20:10 [place] % (Auto) (0.0-8.0) % Lactic Acid (0.4-2.0) mmol/L AST (15-37) U/L Alkaline Phosphatase (45-117) U/L Total Creatine Kinase 326 H (39-308) U/L CK-MB (CK-2) (0.5-3.6) ng/mL Troponin I (0.02-0.05) ng/mL Total Protein (6.4-8.2) g/dL Urine Urobilinogen (Less than 2) mg/dL U Cannabinoids Screen (Neg) Short CBC 05/29/18 Range/Units 07:10 WBC 7.0 (4.0-11.0) th/mm3 Hgb 14.2 (13.0-17.0) gm/dL Hct 43.5 (39.0-51.0) % Plt Count 192 (150-450) th/mm3 BMP 05/29/18 07:10 Sodium 142 Potassium 4.3 Chloride 106 Carbon Dioxide 24.8 BUN 14 Creatinine 1.02 Calcium 8.8 Cardiac Enzymes 05/29/18 05/29/18 05/29/18 Range/Units 07:10 13:56 20:10 Total Creatine Kinase 527 H 411 H 326 H (39-308) U/L CK-MB (CK-2) 4.7 H 3.0 (0.5-3.6) ng/mL Troponin I Less than 0.02 L Less than 0.02 L 0.05 (0.02-0.05) ng/mL Liver Function 05/29/18 Range/Units 07:10 Total Bilirubin 0.5 (0.2-1.0) mg/dL AST 50 H (15-37) U/L ALT 43 (12-78) U/L Alkaline Phosphatase 43 L (45-117) U/L Albumin 3.9 (3.4-5.0) g/dL Urine 05/29/18 Range/Units 07:14 Urine Color Yellow (Yellw/Straw) Urine Clarity Clear (Clear) Urine pH 8.0 (5.0-8.5) Ur Specific [place] 1.012 (1.002-1.035) Urine Protein Negative (Neg-Trace) mg/dL Urine Glucose (UA) Negative (Negative) mg/dL <Jose Nelson K - 05/29/18 21:16> Abnormal lab results 05/29/18 05/29/18 05/29/18 Range/Units 07:10 07:10 07:10 [place] % (Auto) 10.1 H (0.0-8.0) % Lactic Acid (0.4-2.0) mmol/L AST 50 H (15-37) U/L Alkaline Phosphatase 43 L (45-117) U/L Total Creatine Kinase 527 H (39-308) U/L CK-MB (CK-2) 4.7 H (0.5-3.6) ng/mL Troponin I Less than 0.02 L (0.02-0.05) ng/mL Total Protein 8.3 H (6.4-8.2) g/dL Urine Urobilinogen (Less than 2) mg/dL 05/29/18 05/29/18 Range/Units 07:14 07:29 [place] % (Auto) (0.0-8.0) % Lactic Acid 5.0 H* (0.4-2.0) mmol/L AST (15-37) U/L Alkaline Phosphatase (45-117) U/L Total Creatine Kinase (39-308) U/L CK-MB (CK-2) (0.5-3.6) ng/mL Troponin I (0.02-0.05) ng/mL Total Protein (6.4-8.2) g/dL Urine Urobilinogen 2.0 H (Less than 2) mg/dL Short CBC 05/29/18 Range/Units 07:10 WBC 7.0 (4.0-11.0) th/mm3 Hgb 14.2 (13.0-17.0) gm/dL Hct 43.5 (39.0-51.0) % Plt Count 192 (150-450) th/mm3 BMP 05/29/18 07:10 Sodium 142 Potassium 4.3 Chloride 106 Carbon Dioxide 24.8 BUN 14 Creatinine 1.02 Calcium 8.8 Cardiac Enzymes 05/29/18 Range/Units 07:10 Total Creatine Kinase 527 H (39-308) U/L CK-MB (CK-2) 4.7 H (0.5-3.6) ng/mL Troponin I Less than 0.02 L (0.02-0.05) ng/mL Liver Function 05/29/18 Range/Units 07:10 Total Bilirubin 0.5 (0.2-1.0) mg/dL AST 50 H (15-37) U/L ALT 43 (12-78) U/L Alkaline Phosphatase 43 L (45-117) U/L Albumin 3.9 (3.4-5.0) g/dL Urine 05/29/18 Range/Units 07:14 Urine Color Yellow (Yellw/Straw) Urine Clarity Clear (Clear) Urine pH 8.0 (5.0-8.5) Ur Specific [place] 1.012 (1.002-1.035) Urine Protein Negative (Neg-Trace) mg/dL Urine Glucose (UA) Negative (Negative) mg/dL <Gerardo Sims - 05/29/18 09:54> - Imaging Impressions Abdomen/Pelvis CT 05/29/18 06:55 CONCLUSION: 1. Hepatomegaly. 2. Stable enhancing lesion within the left lobe of the liver measuring 4 cm. Outpatient MRI of the abdomen with contrast may be helpful for further assessment of this lesion if not early performed. 3. Minimal ascites within the pelvis. 4. 17 mm upper pole left renal cyst. Chest X-Ray 05/29/18 06:55 CONCLUSION: 1. Minimal central pulmonary vascular congestion. 2. Cardiomegaly. <Jose Nelson - 05/29/18 21:16> Impressions Abdomen/Pelvis CT 05/29/18 06:55 CONCLUSION: 1. Hepatomegaly. 2. Stable enhancing lesion within the left lobe of the liver measuring 4 cm. Outpatient MRI of the abdomen with contrast may be helpful for further assessment of this lesion if not early performed. 3. Minimal ascites within the pelvis. 4. 17 mm upper pole left renal cyst. Chest X-Ray 05/29/18 06:55 CONCLUSION: 1. Minimal central pulmonary vascular congestion. 2. Cardiomegaly. <Gerardo Sism - 05/29/18 09:54> Caprini VTE Risk Assessment Caprini VTE Risk Assessment: No/Low Risk (score <= 1) <Gerardo Sims J - 05/29/18 16:02> Caprini Risk Assessment Model: Point Value = 1 Point Value = 2 Point Value = 3 Point Value = 5 Age 41-60 Minor surgery BMI > 25 kg/m2 Swollen legs Varicose veins or History of unexplained or recurrent spontaneous Oral contraceptives or hormone replacement Sepsis (< 1 month) Serious lung disease, including pneumonia (< 1 month) Abnormal pulmonary function Acute myocardial infarction Congestive heart failure (< 1 month) History of inflammatory bowel disease Medical patient at bed rest Age 61-74 Arthroscopic surgery Major open surgery (> 45 min) Laparoscopic surgery (> 45 min) Malignancy Confined to bed (> 72 hours) Immobilizing plaster cast Central venous access Age >= 75 History of VTE Family history of VTE Factor V Leiden Prothrombin [id number] Lupus anticoagulant Anticardiolipin antibodies Elevated serum homocysteine Heparin-induced thrombocytopenia Other congenital or acquired thrombophilia Stroke (< 1 month) Elective arthroplasty Hip, pelvis, or leg fracture Acute spinal cord injury (< 1 month) <Jose Nelson - 05/29/18 21:16> Point Value = 1 Point Value = 2 Point Value = 3 Point Value = 5 Age 41-60 Minor surgery BMI > 25 kg/m2 Swollen legs Varicose veins or History of unexplained or recurrent spontaneous Oral contraceptives or hormone replacement Sepsis (< 1 month) Serious lung disease, including pneumonia (< 1 month) Abnormal pulmonary function Acute myocardial infarction Congestive heart failure (< 1 month) History of inflammatory bowel disease Medical patient at bed rest Age 61-74 Arthroscopic surgery Major open surgery (> 45 min) Laparoscopic surgery (> 45 min) Malignancy Confined to bed (> 72 hours) Immobilizing plaster cast Central venous access Age >= 75 History of VTE Family history of VTE Factor V Leiden Prothrombin [id number] Lupus anticoagulant Anticardiolipin antibodies Elevated serum homocysteine Heparin-induced thrombocytopenia Other congenital or acquired thrombophilia Stroke (< 1 month) Elective arthroplasty Hip, pelvis, or leg fracture Acute spinal cord injury (< 1 month) <Gerardo Sims - 05/29/18 16:02> Prophylaxis Regimen: Total Risk Factor Score Risk Level Prophylaxis Regimen 0-1 Low Early ambulation 2 Moderate Order ONE of the following: *Sequential Compression Device (SCD) *Heparin 5000 units SQ BID 3-4 Higher Order ONE of the following medications: *Heparin 5000 units SQ TID *Enoxaparin/Lovenox 40 mg SQ daily (WT < 150 kg, CrCl > 30 mL/min) *Enoxaparin/Lovenox 30 mg SQ daily (WT < 150 kg, CrCl > 10-29 mL/min) *Enoxaparin/Lovenox 30 mg SQ BID (WT < 150 kg, CrCl > 30 mL/min) AND/OR *Sequential Compression Device (SCD) 5 or more Highest Order ONE of the following medications: *Heparin 5000 units SQ TID (Preferred with Epidurals) *Enoxaparin/Lovenox 40 mg SQ daily (WT < 150 kg, CrCl > 30 mL/min) *Enoxaparin/Lovenox 30 mg SQ daily (WT < 150 kg, CrCl > 10-29 mL/min) *Enoxaparin/Lovenox 30 mg SQ BID (WT < 150 kg, CrCl > 30 mL/min) AND *Sequential Compression Device (SCD) <Jose Nelson K - 05/29/18 21:16> Total Risk Factor Score Risk Level Prophylaxis Regimen 0-1 Low Early ambulation 2 Moderate Order ONE of the following: *Sequential Compression Device (SCD) *Heparin 5000 units SQ BID 3-4 Higher Order ONE of the following medications: *Heparin 5000 units SQ TID *Enoxaparin/Lovenox 40 mg SQ daily (WT < 150 kg, CrCl > 30 mL/min) *Enoxaparin/Lovenox 30 mg SQ daily (WT < 150 kg, CrCl > 10-29 mL/min) *Enoxaparin/Lovenox 30 mg SQ BID (WT < 150 kg, CrCl > 30 mL/min) AND/OR *Sequential Compression Device (SCD) 5 or more Highest Order ONE of the following medications: *Heparin 5000 units SQ TID (Preferred with Epidurals) *Enoxaparin/Lovenox 40 mg SQ daily (WT < 150 kg, CrCl > 30 mL/min) *Enoxaparin/Lovenox 30 mg SQ daily (WT < 150 kg, CrCl > 10-29 mL/min) *Enoxaparin/Lovenox 30 mg SQ BID (WT < 150 kg, CrCl > 30 mL/min) AND *Sequential Compression Device (SCD) <Gerardo Sims - 05/29/18 09:54> Assessment and Plan - Assessment (1) Dehydration Code(s): E86.0 - Dehydration Status: Acute (2) Abdominal pain Code(s): R10.9 - Unspecified abdominal pain Status: Acute (3) Vomiting Code(s): R11.10 - Vomiting, unspecified Status: Acute (4) Hypertension Code(s): I10 - Essential (primary) hypertension Status: Acute <Jose Nelson Gennaro - 05/29/18 21:16> (1) Dehydration Code(s): E86.0 - Dehydration Status: Acute (2) Abdominal pain Code(s): R10.9 - Unspecified abdominal pain Status: Acute (3) Vomiting Code(s): R11.10 - Vomiting, unspecified Status: Acute (4) Hypertension Code(s): I10 - Essential (primary) hypertension Status: Acute <Gerardo Sims - 05/29/18 17:04> - Assessment and Plan Patient is a 37 year old male who presents with nausea / vomiting, abdominal pain and chest pain with onset this morning. He also has a history of high blood pressure. His blood pressure is currently high and he has lactic acid elevation to 5.0. Dehydration secondary to emesis and poor p.o. intake -Received 1 L NS in the ED -NS at 150 cc/hr until PO intake is adequate -Lactic acid in the ED of 5.0. Repeat lactic acid at 1300 of 2.5. Intractable vomiting -History of cannabinoid associated hyperemesis -This episode appears similar to his prior episodes -Ativan 1mg q4h and zofran as needed. This has worked for his previous episodes -PO Protonix for history of gastritis Chest pain -He has burning chest pain as well as abdominal pain that radiates to the chest -This is likely associated with his emesis -Troponin x2 negative, CK-MB was elevated at 4.7, however total CK was elevated at 527. CK-MB is a percentage was 0.9% -EKG on 10/03/17: POSSIBLE LEFT ATRIAL ENLARGEMENT MARKED LEFT AXIS DEVIATION LEFT VENTRICULAR HYPERTROPHY AND ST-T CHANGE PROBABLE LATERAL MYOCARDIAL INFARCTION ABNORMAL ECG Since the prior tracing, there has been no significant change (prior EKG was in August of 2017) -EKG today shows LVH, partial right bundle branch block, and nonspecific ST-T wave changes. -CXR showed minimal central pulmonary venous congestion Hypertensive urgency -History of HTN that has not been treated recently -His chest pain could classify this as hypertensive emergency, however this is unlikely to be cardiac chest pain -Amlodipine 10 mg daily -Lisinopril 10 mg daily -Clonidine 0.1 mg every 6 hours as needed for blood pressure greater than 180/ [address] 1. Hepatomegaly. 2. Stable enhancing lesion within the left lobe of the liver measuring 4 cm. Outpatient MRI of the abdomen with contrast may be helpful for further assessment of this lesion if not early performed. 3. Minimal ascites within the pelvis. 4. 17 mm upper pole left renal cyst. Fluids: IV fluids as above Electrolytes: monitor and replete as needed Nutrition: Regular diet as tolerated GI prophylaxis: Not indicated VTE prophylaxis: Early ambulation <Gerardo Sims - 05/29/18 17:14> - Attending Attestation The exam, history, and the medical decision-making described in the above note were completed with the assistance of the resident physician. I reviewed and agree with the findings presented. I attest that I had a [id number] encounter with the patient on the same day, and personally performed and documented my assessment and findings in the medical record. On my exam patient somnolent, snoring after ED medications. Will continue to treat hyperemesis with PRNs and anti-emetics. Will add reglan/ haldol as needed. PPI for gastritis and presumed chest burning before vomiting. Consider adding TCA for chronic control after better conversation. cardiac enzymes normal but has abnormal ecg as noted above so will trend. He also has significant hypertension will try to increase PO meds if tolerates, otherwise will give PRN IV hydralazine. May be able to discharge tomorrow if emesis gone and cardiac enzymes trend normal and HTN normalizes. Otherwise may need two nights. Chronic problems managed as above. <Jose Nelson - 05/29/18 21:16> <Gerardo Sims - Last Filed: 05/29/18 17:04> (2) Abdominal pain Qualifiers: Abdominal location: left upper quadrant Qualified Code(s): R10.12 - Left upper quadrant pain (3) Vomiting Qualifiers: Vomiting type: unspecified Vomiting Intractability: non-intractable Nausea presence: with nausea Qualified Code(s): R11.2 - Nausea with vomiting, unspecified <Jose Nelson - Last Filed: 05/29/18 21:16> (2) Abdominal pain Qualifiers: Abdominal location: left upper quadrant Qualified Code(s): R10.12 - Left upper quadrant pain (3) Vomiting Qualifiers: Vomiting type: unspecified Vomiting Intractability: non-intractable Nausea presence: with nausea Qualified Code(s): R11.2 - Nausea with vomiting, unspecified <Gerardo Sims - Last Filed: 05/29/18 17:04> (2) Abdominal pain Qualifiers: Abdominal location: left upper quadrant Qualified Code(s): R10.12 - Left upper quadrant pain (3) Vomiting Qualifiers: Vomiting type: unspecified Vomiting Intractability: non-intractable Nausea presence: with nausea Qualified Code(s): R11.2 - Nausea with vomiting, unspecified <Jose Nelson - Last Filed: 05/29/18 21:16> (2) Abdominal pain Qualifiers: Abdominal location: left upper quadrant Qualified Code(s): R10.12 - Left upper quadrant pain (3) Vomiting Qualifiers: Vomiting type: unspecified Vomiting Intractability: non-intractable Nausea presence: with nausea Qualified Code(s): R11.2 - Nausea with vomiting, unspecified
[2018-05-29] MEDS ORDERED: Lisinopril 10 MG Tablet PO SCH ×2 (11:00→21:10)
[2018-05-29] MEDS: Sod Chloride 0.9% Inj 1,000 ML IV.CONT SCH ×2 (11:02→16:09)
[2018-05-29] MEDS: amLODIPine 10 MG Tablet PO SCH (11:02)
[2018-05-29 12:41] LABS: Amphetamine Screen,Urine Neg (Neg); Barbiturate Screen,Urine Neg (Neg); Cannabinoid Screen,Urine Pos (Neg); Cocaine Screen,Urine Neg (Neg)
[2018-05-29 12:55] LABS: Opiate Screen,Urine Neg (Neg)
[2018-05-29 15:01] LABS: Creatine Kinase 411 U/L (39-308)
[2018-05-29 15:14] LABS: CKMB Percent 0.7 % (0.0-4.0)
--- NOTE | 2018-05-29 17:29 | ECG ---
Date Performed: 05/29/2018 Time Performed: 06:50:54 PTAGE: 37 years EKG: SINUS BRADYCARDIA WITH OCCASIONAL SUPRAVENTRICULAR PREMATURE COMPLEXES POSSIBLE LEFT ATRIAL ENLARGEMENT MARKED LEFT AXIS DEVIATION INCOMPLETE RIGHT BUNDLE BRANCH BLOCK LEFT VENTRICULAR HYPERTR OPHY AND ST-T CHANGE POSSIBLE SEPTAL MYOCARDIAL INFARCTION POSSIBLE LATERAL MYOCARDIAL INFARCTION Com pared to previous tracing, possible septal MA is new. Remainder of the EKG abnormalities are largely unchanged ABNORMAL ECG PREVIOUS TRACING : 10/03/2017 05.33 DOCTOR: Carlos Espinosa Interpretating Date/Time 05/29/2018 17:27:41
[2018-05-29 21:11] LABS: Troponin I 0.05 ng/mL (0.02-0.05)
[2018-05-29] MEDS ORDERED: hydrALAZINE HCl Inj 20 MG/ML Vial IV.PUSH PRN (21:20)
[2018-05-29 21:25] LABS: CKMB Percent 0.6 % (0.0-4.0); Creatine Kinase MB 1.8 ng/mL (0.5-3.6)
--- NOTE | 2018-05-29 22:34 | ECG ---
Date Performed: 05/29/2018 Time Performed: 20:19:43 PTAGE: 37 years EKG: Sinus rhythm WITH OCCASIONAL SUPRAVENTRICULAR PREMATURE COMPLEXES POSSIBLE LEFT ATRIAL ENLARGEMENT MARKED LEFT AX IS DEVIATION RIGHT BUNDLE BRANCH BLOCK LEFT VENTRICULAR HYPERTROPHY AND ST-T CHANGE ABNORMAL ECG PREVIOUS TRACING : 05/29/2018 06.50 Since the previous tracing, no significant change noted DOCTOR: Hernandez May Interpretating Date/Time 05/29/2018 22:33:47
[2018-05-30] MEDS: Sod Chloride 0.9% Inj 1,000 ML IV.CONT SCH ×3 (00:51→13:34)
[2018-05-30 04:07] LABS: Baso # (Auto) 0.1 th/mm3 (0.0-0.2); Baso % (Auto) 0.7 % (0.0-2.0); Eos % (Auto) 0.1 % (0.0-4.0); Hematocrit 37.6 % (39.0-51.0); Hemoglobin 12.4 gm/dL (13.0-17.0); Lymph # (Auto) 1.5 th/mm3 (1.0-4.8); Lymph % (Auto) 19.9 % (9.0-44.0); Mean Corpuscular HGB Conc 32.9 % (32.0-36.0); Mean Corpuscular Hemoglobin 31.1 pg (27.0-34.0); Mean Corpuscular Volume 94.5 fL (80.0-100.0); Mean Platelet Volume 7.5 fL (7.0-11.0); Mono # (Auto) 0.8 th/mm3 (0.0-0.9); Neut # (Auto) 5.2 th/mm3 (1.8-7.7); Neut % (Auto) 68.3 % (16.0-70.0); Platelet Count 155 th/mm3 (150-450); Red Blood Count 3.98 mil/mm3 (4.50-5.90); Red Cell Distribution Width 13.9 % (11.6-17.2); White Blood Count 7.7 th/mm3 (4.0-11.0)
[2018-05-30 04:31] LABS: Anion Gap 6 meq/L (5-15); Blood Urea Nitrogen 11 mg/dL (7-18); Calcium 7.8 mg/dL (8.5-10.1); Carbon Dioxide 26.7 meq/L (21.0-32.0); Chloride 108 meq/L (98-107); Creatine Kinase 274 U/L (39-308); Glomerular Filtration Rate Greater Than 89 mL/min (>89); Glucose,Random 90 mg/dL (74-106); Potassium 3.4 meq/L (3.5-5.1); Sodium 141 meq/L (136-145)
[2018-05-30 07:35] VITALS: RESP 16
[2018-05-30] MEDS: amLODIPine 10 MG Tablet PO SCH (10:39)
--- NOTE | 2018-05-30 11:06 | P.PNFP ---
Subjective Interval history: No acute events overnight. Remains afebrile, BPs ranging 130s- 160s/80s-90s overnight. Patient seen and examined this AM. Patient reports his nausea and vomiting have improved. Endorses mild continued nausea but tolerable on current regimen. States he continues to have a burning type chest pain. He states this is similar in character to his previous episodes of cannabinoid associated hyperemesis. Denies radiation of pain or diaphoresis. Patient otherwise does not report specific complaints or concerns. <Kuldip Griffin - 05/30/18 12:35> Results - Labs Result diagrams: 05/30/18 03:53 05/30/18 03:53 <Jose Nelson - 05/30/18 17:57> Abnormal lab results 05/29/18 05/30/18 05/30/18 Range/Units 20:10 03:53 03:53 RBC 3.98 L (4.50-5.90) mil/mm3 Hgb 12.4 L (13.0-17.0) gm/dL Hct 37.6 L (39.0-51.0) % [place] % (Auto) 11.0 H (0.0-8.0) % Potassium 3.4 L D (3.5-5.1) meq/L Chloride 108 H (98-107) meq/L Calcium 7.8 L D (8.5-10.1) mg/dL Total Creatine Kinase 326 H (39-308) U/L Troponin I (0.02-0.05) ng/mL 05/30/18 Range/Units 03:53 RBC (4.50-5.90) mil/mm3 Hgb (13.0-17.0) gm/dL Hct (39.0-51.0) % [place] % (Auto) (0.0-8.0) % Potassium (3.5-5.1) meq/L Chloride (98-107) meq/L Calcium (8.5-10.1) mg/dL Total Creatine Kinase (39-308) U/L Troponin I 0.06 H (0.02-0.05) ng/mL Short CBC 05/30/18 Range/Units 03:53 WBC 7.7 (4.0-11.0) th/mm3 Hgb 12.4 L (13.0-17.0) gm/dL Hct 37.6 L (39.0-51.0) % Plt Count 155 (150-450) th/mm3 BMP 05/30/18 03:53 Sodium 141 Potassium 3.4 L D Chloride 108 H Carbon Dioxide 26.7 BUN 11 Creatinine 0.84 Calcium 7.8 L D Cardiac Enzymes 05/29/18 05/30/18 05/30/18 Range/Units 20:10 03:53 03:53 Total Creatine Kinase 326 H 274 (39-308) U/L CK-MB (CK-2) 1.8 (0.5-3.6) ng/mL Troponin I 0.05 0.06 H (0.02-0.05) ng/mL 05/30/18 Range/Units 11:30 Total Creatine Kinase (39-308) U/L CK-MB (CK-2) (0.5-3.6) ng/mL Troponin I 0.03 (0.02-0.05) ng/mL <Jose Nelson K - 05/30/18 17:57> Abnormal lab results 05/29/18 05/29/18 05/29/18 Range/Units 07:14 12:53 13:56 RBC (4.50-5.90) mil/mm3 Hgb (13.0-17.0) gm/dL Hct (39.0-51.0) % [place] % (Auto) (0.0-8.0) % Potassium (3.5-5.1) meq/L Chloride (98-107) meq/L Lactic Acid 2.5 H (0.4-2.0) mmol/L Calcium (8.5-10.1) mg/dL Total Creatine Kinase 411 H (39-308) U/L Troponin I Less than 0.02 L (0.02-0.05) ng/mL U Cannabinoids Screen Pos H (Neg) 05/29/18 05/29/18 05/30/18 Range/Units 16:50 20:10 03:53 RBC 3.98 L (4.50-5.90) mil/mm3 Hgb 12.4 L (13.0-17.0) gm/dL Hct 37.6 L (39.0-51.0) % [place] % (Auto) 11.0 H (0.0-8.0) % Potassium (3.5-5.1) meq/L Chloride (98-107) meq/L Lactic Acid 3.0 H (0.4-2.0) mmol/L Calcium (8.5-10.1) mg/dL Total Creatine Kinase 326 H (39-308) U/L Troponin I (0.02-0.05) ng/mL U Cannabinoids Screen (Neg) 05/30/18 05/30/18 Range/Units 03:53 03:53 RBC (4.50-5.90) mil/mm3 Hgb (13.0-17.0) gm/dL Hct (39.0-51.0) % [place] % (Auto) (0.0-8.0) % Potassium 3.4 L D (3.5-5.1) meq/L Chloride 108 H (98-107) meq/L Lactic Acid (0.4-2.0) mmol/L Calcium 7.8 L D (8.5-10.1) mg/dL Total Creatine Kinase (39-308) U/L Troponin I 0.06 H (0.02-0.05) ng/mL U Cannabinoids Screen (Neg) Short CBC 05/30/18 Range/Units 03:53 WBC 7.7 (4.0-11.0) th/mm3 Hgb 12.4 L (13.0-17.0) gm/dL Hct 37.6 L (39.0-51.0) % Plt Count 155 (150-450) th/mm3 BMP 05/30/18 03:53 Sodium 141 Potassium 3.4 L D Chloride 108 H Carbon Dioxide 26.7 BUN 11 Creatinine 0.84 Calcium 7.8 L D Cardiac Enzymes 05/29/18 05/29/18 05/30/18 Range/Units 13:56 20:10 03:53 Total Creatine Kinase 411 H 326 H 274 (39-308) U/L CK-MB (CK-2) 3.0 1.8 (0.5-3.6) ng/mL Troponin I Less than 0.02 L 0.05 (0.02-0.05) ng/mL 05/30/18 Range/Units 03:53 Total Creatine Kinase (39-308) U/L CK-MB (CK-2) (0.5-3.6) ng/mL Troponin I 0.06 H (0.02-0.05) ng/mL <Kuldip Griffin - 05/30/18 11:06> Physical Exam Vital signs: Vital Signs 05/29/18 20:00 05/30/18 00:00 05/30/18 04:00 Temperature 97.9 F 98.8 F 98.3 F Pulse Rate 74 55 L 64 Respiratory Rate 19 18 14 Blood Pressure 151/93 H 136/85 141/87 H Pulse Oximetry 98 100 99 05/30/18 07:32 05/30/18 08:00 05/30/18 10:40 Temperature 98.6 F Pulse Rate 76 72 60 Respiratory Rate 16 Blood Pressure 168/90 H Pulse Oximetry 99 99 05/30/18 11:19 Temperature 98.5 F Pulse Rate 70 Respiratory Rate 16 Blood Pressure 166/90 H Pulse Oximetry 100 Intake & Output 05/29/18 05/30/18 05/30/18 18:59 06:59 18:59 Intake Total 5000 / 5000 1720 / 1720 1000 / 1000 Output Total 1000 / 1000 Balance 4000 / 4000 1720 / 1720 1000 / 1000 Intake: IV 5000 / 5000 1000 / 1000 1000 / 1000 NS Inj 1,000 ML @ 150 mls/hr IV 2000 / 2000 1000 / 1000 1000 / 1000 .CONT .Q6H40M SILVINO Rx#:[id number] NS Inj 1,000 ML @ Wide Open IV. 3000 / 3000 SIG BOLUS SILVINO Rx#:[id number] Oral 720 / 720 Output: Urine 1000 / 1000 Other: # Voids 3 <Jose Nelson - 05/30/18 17:57> Vital Signs 05/29/18 12:31 05/29/18 15:25 05/29/18 20:00 Temperature 98.6 F 100.2 F H 97.9 F Pulse Rate 63 66 74 Respiratory Rate 20 20 19 Blood Pressure 196/113 H 195/119 H 151/93 H Pulse Oximetry 99 100 98 05/30/18 00:00 05/30/18 04:00 05/30/18 07:32 Temperature 98.8 F 98.3 F 98.6 F Pulse Rate 55 L 64 76 Respiratory Rate 18 14 16 Blood Pressure 136/85 141/87 H 168/90 H Pulse Oximetry 100 99 99 05/30/18 08:00 05/30/18 10:40 Temperature Pulse Rate 72 60 Respiratory Rate Blood Pressure Pulse Oximetry 99 Intake & Output 05/29/18 05/30/18 05/30/18 18:59 06:59 18:59 Intake Total 5000 / 5000 1720 / 1720 Output Total 1000 / 1000 Balance 4000 / 4000 1720 / 1720 Intake: IV 5000 / 5000 1000 / 1000 NS Inj 1,000 ML @ 150 mls/hr IV 2000 / 2000 1000 / 1000 .CONT .Q6H40M SILVINO Rx#:[id number] NS Inj 1,000 ML @ Wide Open IV. 3000 / 3000 SIG BOLUS SILVINO Rx#:[id number] Oral 720 / 720 Output: Urine 1000 / 1000 Other: # Voids 3 <Leda Griffinsh - 05/30/18 11:06> Narrative: General: Well-developed and in no acute distress. Appears stated age patient. HEENT: Atraumatic, PERRL, non-icteric sclera and no conjunctival injection, moist mucous membranes Neck: Supple, non-tender without masses or lymphadenopathy, trachea midline Cardiac: Regular rate and rhythm without murmurs or gallops Pulmonary: Non-labored breathing. Lungs clear to auscultation bilaterally with good air movement Abdomen: Normal bowel sounds, soft, nontender Extremities: No edema <Leda Griffinsh - 05/30/18 12:35> Assessment and Plan - Assessment (1) Dehydration Code(s): E86.0 - Dehydration Status: Acute (2) Abdominal pain Code(s): R10.9 - Unspecified abdominal pain Status: Acute (3) Vomiting Code(s): R11.10 - Vomiting, unspecified Status: Acute (4) Hypertension Code(s): I10 - Essential (primary) hypertension Status: Acute <Jose Nelson - 05/30/18 17:57> (1) Dehydration Code(s): E86.0 - Dehydration Status: Acute (2) Abdominal pain Code(s): R10.9 - Unspecified abdominal pain Status: Acute (3) Vomiting Code(s): R11.10 - Vomiting, unspecified Status: Acute (4) Hypertension Code(s): I10 - Essential (primary) hypertension Status: Acute <GabyKuldip - 05/30/18 12:26> - Assessment and Plan Patient is a 37 year old male who presented with nausea / vomiting, abdominal pain and chest pain. He also has a history of high blood pressure. Dehydration secondary to emesis and poor p.o. intake -Received 1 L NS in the ED -NS at 150 cc/hr until PO intake is adequate -Lactic acid in the ED of 5.0. Repeat lactic acid this AM is 0.9 Intractable vomiting -History of cannabinoid associated hyperemesis -This episode appears similar to his prior episodes -Ativan 1mg q4h and zofran as needed. This has worked for his previous episodes -Transitioned to reglan which patient reported improved symptoms with -PO Protonix for history of gastritis Chest pain -He has burning chest pain as well as abdominal pain that radiates to the chest -This is likely associated with his emesis -Troponin x2 negative, CK-MB was elevated at 4.7, however total CK was elevated at 527. CK-MB is a percentage was 0.9% -EKG on 10/03/17: POSSIBLE LEFT ATRIAL ENLARGEMENT MARKED LEFT AXIS DEVIATION LEFT VENTRICULAR HYPERTROPHY AND ST-T CHANGE PROBABLE LATERAL MYOCARDIAL INFARCTION ABNORMAL ECG Since the prior tracing, there has been no significant change (prior EKG was in August of 2017) -EKG on admission showed LVH, partial right bundle branch block, and nonspecific ST-T wave changes. -Repeat troponin this morning of 0.3 -CXR showed minimal central pulmonary venous congestion Hypertensive urgency -History of HTN that has not been treated recently -His chest pain could classify this as hypertensive emergency, however this is unlikely to be cardiac chest pain -Amlodipine 10 mg daily -Lisinopril 10 mg daily -Will continue these as an outpatient Incidental findings on CT 1. Hepatomegaly. 2. Stable enhancing lesion within the left lobe of the liver measuring 4 cm. Outpatient MRI of the abdomen with contrast may be helpful for further assessment of this lesion if not early performed. 3. Minimal ascites within the pelvis. 4. 17 mm upper pole left renal cyst. Fluids: per PO Electrolytes: monitor and replete as needed Nutrition: Regular diet as tolerated GI prophylaxis: Not indicated VTE prophylaxis: Early ambulation <Kuldip Griffin - 05/30/18 12:35> - Attending Attestation The exam, history, and the medical decision-making described in the above note were completed with the assistance of the resident physician. I reviewed and agree with the findings presented. I attest that I had a [id number] encounter with the patient on the same day, and personally performed and documented my assessment and findings in the medical record. Seen today by me. N/V resolved on exam, appears well hydrated. BP controlled with meds, will d/c with amlodipine and lisinopril. explained that this is likely severe and chronic given his level of LVH on ekg. Will send home with PRN antiemetics and TCA for chronic control. Discussed r/b of these including how they are only for prophylaxis and not for treatment and how taking more than rx'd could be life threatening. Troponins stabilzed at very low level, likely strain from severe HTN. Will re-establish with his PCP <Jose Nelson - 05/30/18 17:57> <Kuldip Griffin - Last Filed: 05/30/18 12:26> (2) Abdominal pain Qualifiers: Abdominal location: left upper quadrant Qualified Code(s): R10.12 - Left upper quadrant pain (3) Vomiting Qualifiers: Vomiting type: unspecified Vomiting Intractability: non-intractable Nausea presence: with nausea Qualified Code(s): R11.2 - Nausea with vomiting, unspecified <Jose Nelson - Last Filed: 05/30/18 17:57> (2) Abdominal pain Qualifiers: Abdominal location: left upper quadrant Qualified Code(s): R10.12 - Left upper quadrant pain (3) Vomiting Qualifiers: Vomiting type: unspecified Vomiting Intractability: non-intractable Nausea presence: with nausea Qualified Code(s): R11.2 - Nausea with vomiting, unspecified <Kuldip Griffin - Last Filed: 05/30/18 12:26> (2) Abdominal pain Qualifiers: Abdominal location: left upper quadrant Qualified Code(s): R10.12 - Left upper quadrant pain (3) Vomiting Qualifiers: Vomiting type: unspecified Vomiting Intractability: non-intractable Nausea presence: with nausea Qualified Code(s): R11.2 - Nausea with vomiting, unspecified <Jose Nelson - Last Filed: 05/30/18 17:57> (2) Abdominal pain Qualifiers: Abdominal location: left upper quadrant Qualified Code(s): R10.12 - Left upper quadrant pain (3) Vomiting Qualifiers: Vomiting type: unspecified Vomiting Intractability: non-intractable Nausea presence: with nausea Qualified Code(s): R11.2 - Nausea with vomiting, unspecified
[2018-05-30 11:22] VITALS: BP 166/90; PULSE 70; TEMP 98.5; O2SAT 100
--- NOTE | 2018-05-31 15:37 | ECG ---
Date Performed: 05/30/2018 Time Performed: 12:03:56 PTAGE: 37 years EKG: SINUS BRADYCARDIA WITH OCCASIONAL SUPRAVENTRICULAR PREMATURE COMPLEXES MARKED LEFT AXIS DEV IATION LEFT VENTRICULAR HYPERTROPHY AND ST-T CHANGE PROBABLE LATERAL MYOCARDIAL INFARCTION ABNORMAL E CG PREVIOUS TRACING : 05/29/2018 20.19 Since the previous tracing, no significant change noted DOCTOR: Sophia Celestin Interpretating Date/Time 05/31/2018 15:36:32
== END 2018-05-30 14:10 | disposition home or self-care (01) ==
LOC: NEPE 06:16 → NEDA 06:16 → NEPHCDU 10:10
PROVIDERS: ADMIT Family Medicine; ATTEND Family Medicine